=== PATIENT | female | born 1945 | race Caucasian/White ===

== ENCOUNTER 2016-11-02 12:00 | Emergency (ER) | payer MEDICARE ==
[2016-11-02 12:09] VITALS: BP 143/77; PULSE 75; TEMP 98; BMI 31.1
[2016-11-02] MEDS ORDERED: ALBUTEROL SO4 2.5/IPRATROPIUM 0.5 INH SOL 3 ML VIAL.NEB. NEB ONE ×2 (12:55→12:56)
--- NOTE | 2016-11-02 13:03 | PDOC ---
History of Present Illness - General Chief Complaint: Cold Symptoms Stated Complaint: COUGH, BACK PAIN Time Seen by Provider: 11/02/16 12:43 History Source: Patient Exam Limitations: No Limitations - History of Present Illness Initial Comments: 11/02/16 12:58 Chief complaint: 2 days with shortness of breath and wheezing and chest discomfort with coughing and left lateral rib pain when coughing History of present illness: Patient is a 71 year old xsa-moeoyhc-hunclolof diabetic, hypertension, depression and asthmatic here today with dry cough 2 days with chest tightness and wheezing. Patient reports having chest discomfort when coughing or left lateral rib pain when coughing 2 days. Patient reports having had her flu vaccine. Patient is unsure whether or not she has had fever took a couple of Aleve. She reports that she used her albuterol pump twice today without relief of chest tightness or wheezing. Patient denies ever having been admitted due to her asthma. Denies any nasal congestion or sore throat or any nausea vomiting or diarrhea. Patient denies any known sick contacts or any recent travel. Surgical history appendectomy left breast mastectomy 11/02/16 14:11 11/02/16 14:16 Timing/Duration: getting worse (over 2 days ) Severity: moderate Associated Symptoms: reports: chest pain (when coughing and left lateral rib pain when coughing ), shortness of breath, other (wheezing) Past History - Past Medical History Allergies/Adverse Reactions: Allergies Allergy/AdvReac Type Severity Reaction Status Date / Time No Known Allergies Allergy Verified 11/02/16 12:06 Home Medications: Ambulatory Orders Carvedilol [Coreg -] 25 mg PO BID 05/04/12 Sitagliptin Phos/Metformin HCl [Janumet 50-500 mg Tablet] 1 each PO BID Aspirin [ASA -] 81 mg PO DAILY 02/02/14 Lisinopril [Prinivil] 5 mg PO DAILY 02/02/14 Paroxetine HCl [Paxil] 10 mg PO DAILY 02/02/14 Ibuprofen [Advil -] 400 mg PO ONCE 07/30/15 Fluticasone/Salmeterol [Advair Hfa 115-21 Mcg Inhaler] 1 inh PO BID #1 inhaler MDD 2 11/02/16 Guaifenesin Dm [Mucinex Dm -] 1 tab PO BID PRN #10 tab.er.12h 11/02/16 Cancer: Yes (breast W/LEFT MASTECTOMY) Diabetes: Yes HTN: Yes Suicide Attempt (Hx): No - Surgical History Appendectomy: Yes Cardiac Surgery: Yes (cardiac cath) Cholecystectomy: Yes - Immunization History Immunization Up to Date: Yes - Psycho/Social/Smoking Cessation Hx Anxiety: No Suicidal Ideation: No Smoking Status: No Smoking History: Never smoked Have you smoked in the past 12 months: No Number of Cigarettes Smoked Daily: 0 Information on smoking cessation initiated: No 'Breaking Loose' booklet given: 02/02/14 Hx Alcohol Use: No Drug/Substance Use Hx: No Substance Use Type: None Hx Substance Use Treatment: No Review of Systems - Review of Systems Able to Perform ROS?: Yes Constitutional: No: Symptoms Reported HEENTM: No: Symptoms Reported Respiratory: No: Symptoms reported Cardiac (ROS): Yes: Chest Pain (when coughing for 2 days ), Chest Tightness. No : Irregular Heart Rate, Lightheadedness, Palpitations Musculoskeletal: Yes: Joint Pain (left lateral ribs intermittent). No: Joint Swelling Integumentary: No: Symptoms Reported Neurological: No: Symptoms reported *Physical Exam - Vital Signs Last Vital Signs Temp Pulse Resp BP Pulse Ox 98 F 75 18 143/77 95 11/02/16 12:03 11/02/16 12:03 11/02/16 12:03 11/02/16 12:03 11/02/16 12:03 - Physical Exam General Appearance: Yes: Appropriately Dressed HEENT: positive: Normal ENT Inspection Neck: negative: Lymphadenopathy (R), Lymphadenopathy (L) Respiratory/Chest: positive: Lungs Clear, Normal Breath Sounds, Decreased Breath Sounds (diffuse b/l ), Other (after neb normal breath sounds b/l ). negative: Respiratory Distress, Accessory Muscle Use, Labored Respiration, Rapid RR, Paradoxal Breathing, Crackles, Rales, Rhonchi, Stridor, Wheezing Cardiovascular: positive: Regular Rhythm, Regular Rate, S1, S2 Integumentary: positive: Normal Color Neurologic: positive: Alert, Normal Response, Responsive Medical Decision Making - Medical Decision Making 11/02/16 13:03 Patient is a 71 year old fej-bgrptxj-nfmxeonyv diabetic, hypertension, depression and asthmatic here today with dry cough 2 days with chest tightness and wheezing. Patient reports having chest discomfort when coughing or left lateral rib pain when coughing 2 days. Patient reports having had her flu vaccine. Patient is unsure whether or not she has had fever took a couple of Aleve. She reports that she used her albuterol pump twice today without relief of chest tightness or wheezing. Patient denies ever having been admitted due to her asthma. Denies any nasal congestion or sore throat or any nausea vomiting or diarrhea. Patient denies any known sick contacts or any recent travel. Asthma exacerbation rule out infiltrate Rule out influenza A or B Plan: Influenza A and B rapid negative DuoNeb now X-ray chest PA and lateral no infiltrate, slightly prominent hilium 11/02/16 14:11 lungs cta b/l after neb advair 115mcg/21 mcg one inhale bid use albuterol neb her at home and Ventolin pump 11/02/16 14:17 *DC/Admit/Observation/Transfer Diagnosis at time of Disposition: Asthma exacerbation - Discharge Dispostion Disposition: HOME Condition at time of disposition: Stable - Patient Instructions Additional Instructions: Follow-up with primary care provider within the next few days Return To emergency room if symptoms worsen any difficulty breathing Use albuterol pump and nebulizer as previously ordered Patient voiced understanding of discharge instructions and all questions were answered
== END 2016-11-02 14:26 | disposition home or self-care (01) ==
LOC: JERFT 12:00
PROC: 3E0F7GC Introduction of Other Therapeutic Substance into Respiratory Tract, Via Natural or Artificial Opening (ICD-10-PCS; principal; 2016-11-02)
DX: J45.901 Unspecified asthma with (acute) exacerbation (principal); I10 Essential (primary) hypertension; E11.9 Type 2 diabetes mellitus without complications; Z79.84 Long term (current) use of oral hypoglycemic drugs; F32.9 Major depressive disorder, single episode, unspecified
CPT/HCPCS: 71020-TC; 87804; 94640; 99281-25

== ENCOUNTER 2017-08-26 19:42 | Emergency (ER) | payer MEDICARE ==
[2017-08-26] MEDS ORDERED: ALBUTEROL SO4 2.5/IPRATROPIUM 0.5 INH SOL 3 ML VIAL.NEB. NEB ONE ×2 (19:48→21:01)
--- NOTE | 2017-08-26 19:48 | PDOC ---
Rapid Medical Evaluation Time Seen by Provider: 08/26/17 19:44 Medical Evaluation: Allergies Allergy/AdvReac Type Severity Reaction Status Date / Time No Known Allergies Allergy Verified 11/02/16 12:06 08/26/17 19:49 71 year old female with a history of NIDDM, HTN, depression, asthma (no hospitalizations), breast ca s/p left mastectomy 2003 who presents with 3-4 days cough productive of yellow sputum, wheezing, and headache. V/s unremarkable. Alert, no respiratory distress. Scant expiratory wheeze, + cough. RRR, S1/S2. -Influenza swab -CXR -DuoNeb -To FT for further evaluation
[2017-08-26 19:49] VITALS: BP 150/78; PULSE 79; TEMP 97.7; BMI 31.1
--- NOTE | 2017-08-26 21:22 | PDOC ---
History of Present Illness - History of Present Illness Initial Comments: 08/26/17 21:29 The patient is a 71 year old female, with a past medical history of HTN, DM, presents to the emergency department with a complaint of 3-4 days of fever, headache and cough. Patient reports. Patient does not remember her temperature, but reports her neighbor took it. She tried Advil and Ibuprofen for her headache , both of which offered only a few hours of relief. Patient points to the front of her head where the pain is the worst. Patient states she had mild chest pain from the cough, however the pain resolved after the nebulizer treatment which she received in our emergency department. She reports post tussive emesis. She reports all of her symptoms have been keeping her up at night and hasn't been able to get a good night's rest. She is drinking a lot of water and juice over the past few days. Denies abdominal pain. Denies urinary urgency, frequency, hematuria or dysuria. Denies diarrhea. Denies back pain. Denies history of cardiac surgeries. Patient received the flu shot in May of this year( approx 3 months ago). Reports to recent antibiotic use 2 months ago for a UTI. Denies sick contacts, lives at home alone. PMD: Dr. Becerra, [facility] [phone] <Michael Wood - Last Filed: 08/26/17 21:48> - General History Source: Patient <Rosana Alas - Last Filed: 08/26/17 22:08> - General Chief Complaint: Cold Symptoms Stated Complaint: CONGESTION/HEADACHE Time Seen by Provider: 08/26/17 19:44 Past History <Michael Wood - Last Filed: 08/26/17 21:48> - Past Medical History Cancer: Yes (breast W/LEFT MASTECTOMY) Diabetes: Yes HTN: Yes - Surgical History Appendectomy: Yes Cardiac Surgery: Yes (cardiac cath) Cholecystectomy: Yes - Immunization History Immunization Up to Date: Yes - Suicide/Smoking/Psychosocial Hx Smoking Status: No Smoking History: Unknown if ever smoked Have you smoked in the past 12 months: No Number of Cigarettes Smoked Daily: 0 Information on smoking cessation initiated: No 'Breaking Loose' booklet given: 02/02/14 Hx Alcohol Use: No Drug/Substance Use Hx: No Substance Use Type: None Hx Substance Use Treatment: No <Rosana Alas - Last Filed: 08/26/17 22:08> - Past Medical History Allergies/Adverse Reactions: Allergies Allergy/AdvReac Type Severity Reaction Status Date / Time No Known Allergies Allergy Verified 11/02/16 12:06 Home Medications: Ambulatory Orders Carvedilol [Coreg -] 25 mg PO BID 05/04/12 Sitagliptin Phos/Metformin HCl [Janumet 50-500 mg Tablet] 1 each PO BID Aspirin [ASA -] 81 mg PO DAILY 02/02/14 Lisinopril [Prinivil] 5 mg PO DAILY 02/02/14 Paroxetine HCl [Paxil] 10 mg PO DAILY 02/02/14 Ibuprofen [Advil -] 400 mg PO ONCE 07/30/15 Fluticasone/Salmeterol [Advair Hfa 115-21 Mcg Inhaler] 1 inh PO BID #1 inhaler MDD 2 11/02/16 Guaifenesin Dm [Mucinex Dm -] 1 tab PO BID PRN #10 tab.er.12h 11/02/16 Albuterol 0.083% Nebulizer Talisha [Ventolin 0.083% Nebulizer Soln -] 1 neb NEB Q4H PRN #25 vial 08/26/17 Azithromycin [Zithromax 250mg Tablets -] 250 mg PO UTDICT #6 tab 08/26/17 Review of Systems - Review of Systems Able to Perform ROS?: Yes Comments:: 08/26/17 21:29 CONSTITUTIONAL: Present; fever, Absent: no chills, no fatigue EYES: Absent: visual changes ENT: Absent: ear pain, no sore throat CARDIOVASCULAR: Present: Chest discomfort secondary to cough Absent: no palpitations RESPIRATORY: Present:cough Absent: no SOB GI: Present: vomiting Absent: abdominal pain, no nausea, no constipation, no diarrhea GENITOURINARY: Absent: dysuria, no frequency, no hematuria MUSKULOSKELETAL: Absent: back pain, no arthralgia, no myalgia SKIN: Absent: rash NEURO: Present: Headache <Mcihael Wood - Last Filed: 08/26/17 21:48> *Physical Exam - Vital Signs Last Vital Signs Temp Pulse Resp BP Pulse Ox 97.7 F 79 16 150/78 99 08/26/17 19:47 08/26/17 19:47 08/26/17 19:47 08/26/17 19:47 08/26/17 19:47 - Physical Exam Comments: 08/26/17 21:29 GENERAL: Well-appearing, well-nourished. No apparent distress. HEENT: Normocephalic, atraumatic. PERRL, EOM intact. CARDIOVASCULAR: Normal S1, S2. Regular rate and rhythm. PULMONARY: Bilateral Rails left greater than right at the bases ABDOMEN: Soft, non-distended, non-tender. EXTREMITIES: Normal ROM in all four extremities. No gross deformities. SKIN: Warm, dry. No rash NEUROLOGICAL: No focal neurological deficits. <Michael Wood - Last Filed: 08/26/17 21:48> - Vital Signs Last Vital Signs Temp Pulse Resp BP Pulse Ox 97.7 F 79 16 150/78 99 08/26/17 19:47 08/26/17 19:47 08/26/17 19:47 08/26/17 19:47 08/26/17 19:47 <Rosana Alas - Last Filed: 08/26/17 22:08> ED Treatment Course - Medications Given in the ED: ED Medications Discontinued Medications Generic Name Dose Route Start Last Admin Trade Name Freq PRN Reason Stop Dose Admin Albuterol/Ipratropium 1 amp 08/26/17 19:48 08/26/17 21:03 Duoneb - NEB 08/26/17 19:49 1 amp ONCE ONE Administration <Michael Wood - Last Filed: 08/26/17 21:48> - Medications Given in the ED: ED Medications Discontinued Medications Generic Name Dose Route Start Last Admin Trade Name Freq PRN Reason Stop Dose Admin Albuterol/Ipratropium 1 amp 08/26/17 19:48 08/26/17 21:03 Duoneb - NEB 08/26/17 19:49 1 amp ONCE ONE Administration <Rosana Alas - Last Filed: 08/26/17 22:08> *DC/Admit/Observation/Transfer - Attestations Scribe Attestion: 08/26/17 21:30 Documentation prepared by Michael Wood, acting as medical billing instructor for Rosana Alas NP <Michael Wood - Last Filed: 08/26/17 21:48> <Rosana Alas - Last Filed: 08/26/17 22:08> Diagnosis at time of Disposition: Bronchitis - Discharge Dispostion Disposition: HOME - Prescriptions Prescriptions: Albuterol 0.083% Nebulizer Talisha [Ventolin 0.083% Nebulizer Soln -] 1 neb NEB Q4H PRN #25 vial PRN Reason: Cough Azithromycin [Zithromax 250mg Tablets -] 250 mg PO UTDICT #6 tab - Referrals Referrals: Unique Becerra MD [Primary Care Provider] - - Patient Instructions Printed Discharge Instructions: Acute Bronchitis Additional Instructions: follow up with your doctor as soon as possible take azithromycin as prescribed. albuterol every 4 - 6 hours as needed for cough. return to the ER if symptoms worsen. - Post Discharge Activity
[2017-08-26] MEDS ORDERED: AZITHROMYCIN 500 MG TABLET PO ONE (22:05)
[2017-08-26] MEDS ORDERED: AZITHROMYCIN 500 MG TABLET ONE (22:08)
== END 2017-08-26 22:12 | disposition home or self-care (01) ==
LOC: JERFT 19:42
PROC: 3E0F7GC Introduction of Other Therapeutic Substance into Respiratory Tract, Via Natural or Artificial Opening (ICD-10-PCS; principal; 2017-08-26)
DX: J40 Bronchitis, not specified as acute or chronic (principal); I10 Essential (primary) hypertension; E11.9 Type 2 diabetes mellitus without complications; Z85.3 Personal history of malignant neoplasm of breast
CPT/HCPCS: 71020-TC; 87804; 94640; 99281-25

== ENCOUNTER 2018-06-14 15:40 | Emergency (ER) | payer MEDICARE ==
[2018-06-14 15:55] VITALS: BP 173/78; PULSE 65; TEMP 98.6; BMI 28.9
--- NOTE | 2018-06-14 16:14 | PDOC ---
History of Present Illness - General Chief Complaint: RX Refill Stated Complaint: DEPRESSION Time Seen by Provider: 06/14/18 15:55 History Source: Patient Exam Limitations: No Limitations - History of Present Illness Initial Comments: 06/14/18 16:21 72 yr female ran out of her paxil. Pt took last dose friday states woke up today feeling tearful and sad. no thoughts of SI or hurting self. Pt has apt tomorrow with her PMD. Pt has her bottle with her. Past History - Past Medical History Allergies/Adverse Reactions: Allergies Allergy/AdvReac Type Severity Reaction Status Date / Time No Known Allergies Allergy Verified 06/14/18 15:54 Home Medications: Ambulatory Orders Carvedilol [Coreg -] 25 mg PO BID 05/04/12 Sitagliptin Phos/Metformin HCl [Janumet 50-500 mg Tablet] 1 each PO BID Aspirin [ASA -] 81 mg PO DAILY 02/02/14 Lisinopril [Prinivil] 5 mg PO DAILY 02/02/14 Paroxetine HCl [Paxil] 10 mg PO DAILY 02/02/14 Fluticasone/Salmeterol [Advair Hfa 115-21 Mcg Inhaler] 1 inh PO BID #1 inhaler MDD 2 11/02/16 Albuterol 0.083% Nebulizer Talisha [Ventolin 0.083% Nebulizer Soln -] 1 neb NEB Q4H PRN #25 vial 08/26/17 Paroxetine HCl [Paxil] 20 mg PO DAILY #14 tablet 06/14/18 Cancer: Yes (breast W/LEFT MASTECTOMY) CVA: No COPD: No Diabetes: Yes (Type 2) HTN: Yes Psychiatric Problems: Yes (depression) - Surgical History Appendectomy: Yes Cardiac Surgery: Yes (cardiac cath) Cholecystectomy: Yes - Immunization History Immunization Up to Date: Yes - Suicide/Smoking/Psychosocial Hx Smoking Status: No Smoking History: Never smoked Have you smoked in the past 12 months: No Number of Cigarettes Smoked Daily: 0 Information on smoking cessation initiated: No 'Breaking Loose' booklet given: 02/02/14 Hx Alcohol Use: No Drug/Substance Use Hx: No Substance Use Type: None Hx Substance Use Treatment: No Review of Systems - Review of Systems Able to Perform ROS?: Yes Is the patient limited Slovak proficient: No Psychiatric: Yes: Depression, Frequent Crying, Mood Swings *Physical Exam - Vital Signs Last Vital Signs Temp Pulse Resp BP Pulse Ox 98.6 F 65 18 173/78 H 97 06/14/18 15:52 06/14/18 15:52 06/14/18 15:52 06/14/18 15:52 06/14/18 15:52 - Physical Exam General Appearance: Yes: Nourished, Appropriately Dressed HEENT: positive: EOMI, JOSEPHINE Integumentary: positive: Normal Color, Dry, Warm Neurologic: positive: Fully Oriented, Alert, Normal Mood/Affect, Normal Response , Motor Strength 01/10 Medical Decision Making - Medical Decision Making 06/14/18 16:22 cc: ran out of paxil will refill today 14 pills pt has apt tomorrow with her PMD pt aware to return if worse or any thoughts of suicide. 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
== END 2018-06-14 16:26 | disposition home or self-care (01) ==
LOC: JERFT 15:40
DX: F32.9 Major depressive disorder, single episode, unspecified (principal); Z76.0 Encounter for issue of repeat prescription; I25.10 Atherosclerotic heart disease of native coronary artery without angina pectoris; Z98.61 Coronary angioplasty status; I10 Essential (primary) hypertension; E11.9 Type 2 diabetes mellitus without complications; Z79.84 Long term (current) use of oral hypoglycemic drugs; Z85.3 Personal history of malignant neoplasm of breast; Z90.12 Acquired absence of left breast and nipple
CPT/HCPCS: 99281-25

== ENCOUNTER 2018-09-17 08:34 | Day surgery (SDC) | payer OTHER ==
[2018-09-17 09:28] LABS: BASO % 0.8 % (0-2.0); EOS % 2.1 % (0-4.5); HEMATOCRIT 38.6 % (32.4-45.2); HEMOGLOBIN 13.5 GM/dL (10.7-15.3); MCH 30.7 pg (25.7-33.7); MEAN CELL VOLUME 87.8 fl (80-96); MEAN PLT VOLUME 7.3 fl (7.5-11.1); NEUT % 66.1 % (42.8-82.8); PLATELET COUNT 282 K/MM3 (134-434); RDW 13.7 % (11.6-15.6); WHITE BLOOD COUNT 7.3 K/mm3 (4.0-10.0)
[2018-09-17 10:09] LABS: INR 1.1 (0.83-1.09)
[2018-09-17 15:19] VITALS: TEMP 97.8
[2018-09-17 15:23] VITALS: BP 140/84; PULSE 70
== END 2018-09-17 13:50 | disposition home or self-care (01) ==
LOC: JRADIR 08:34
PROVIDERS: ATTEND Internal Medicine Hematology & Oncology
PROC: BW20ZZZ Computerized Tomography (CT Scan) of Abdomen (ICD-10-PCS; principal; 2018-09-17)
PROC: 0WBF3ZX Excision of Abdominal Wall, Percutaneous Approach, Diagnostic (ICD-10-PCS; 2018-09-17)
DX: R19.09 Other intra-abdominal and pelvic swelling, mass and lump (principal); Z53.8 Procedure and treatment not carried out for other reasons
CPT/HCPCS: 36415; 49180; 77012-TC; 85025; 85610

== ENCOUNTER 2018-10-09 07:18 | Day surgery (SDC) | payer OTHER ==
[2018-10-08 11:29] VITALS: BMI 26.3
[2018-10-09] MEDS ORDERED: PROPOFOL 20 ML ONE (09:09)
[2018-10-09] MEDS ORDERED: MIDAZOLAM HCL 2 MG/2 ML SINGLE DOSE VIAL ONE (09:09)
[2018-10-09] MEDS ORDERED: LIDOCAINE HCL/PF 2% SDV 5ML VIAL ONE (09:09)
[2018-10-09] MEDS ORDERED: oxyCODONE HCL 5 MG TABLET PO PRN (09:26)
[2018-10-09] MEDS ORDERED: ONDANSETRON 4 MG/2 ML VIAL IVPUSH PRN (09:26)
[2018-10-09] MEDS ORDERED: ACETAMINOPHEN 500 MG TABLET (FP) PO PRN (09:26)
[2018-10-09] MEDS ORDERED: LACTATED RINGERS SOLUTION 1,000 ML IV SCH (09:30)
[2018-10-09] MEDS ORDERED: LIDOCAINE 1%-EPI 1:100,000 30 ML MDV IJ ONE (09:33)
--- NOTE | 2018-10-09 09:36 | HP ---
History & Physical Update - History History: No Change - Physical Physical: No Change - Assessment Assessment: No Change - Plan Plan: No Change (H & P done on 10/01/18)
[2018-10-09] MEDS ORDERED: ceFAZolin SODIUM 1 GM VIAL ONE (09:44)
[2018-10-09] MEDS ORDERED: ceFAZolin SODIUM 1 GM VIAL IVPB ONE (09:46)
[2018-10-09 11:34] VITALS: TEMP 97.8
--- NOTE | 2018-10-09 11:40 | OP ---
DATE OF OPERATION: 10/09/2018 PROCEDURE: Incisional biopsy abdominal wall mass. PREOPERATIVE DIAGNOSIS: Abdominal wall mass. POSTOPERATIVE DIAGNOSIS: Abdominal wall mass, rule out firm body granuloma. ANESTHESIA: Local with sedation. REASON FOR PROCEDURE: This is a 73-year-old female who presents with a slightly painful and tender abdominal wall mass at the upper abdomen to the left of the midline for which incisional hernia repair was done several years prior. On physical exam, the patient has an ill-defined, irregularly shaped mass of the said area about 3 cm x [address] A [address] scan of the abdomen showed a 2.6-cm x 1.7-cm mass incorporated with the mesh. An attempt for CT-guided core needle biopsy proved to be unsuccessful as the mass was fibrotic and was hard causing the needle to break. The patient was referred for open biopsy, and consent was obtained after discussing the risks, benefits, and alternatives of the procedure. PROCEDURE IN DETAIL: The patient was brought to the operating room and placed in supine position. Intravenous sedation was given by the Anesthesia team. Using lidocaine 1% with epinephrine, local anesthesia was administered to both incision sites. A 2.5-cm vertical incision over the mass was made using scalpel blade No. 15 with dissection carried down to subcutaneous tissue. During dissection using Bovie cautery was done until the abdominal wall was exposed. The ill-defined mass was noted to be embedded in the fascia and surrounded by the mesh. An aggregate size of about 2-cm x 1-cm x 1.5-cm specimen was excised using the scalpel blade No. 15 combined with the use of Hinkle scissors. Some cheesy material was also encountered under the mass as well as Prolene suture from the previous hernia repair procedure. These sutures were also removed. The area was irrigated with sterile normal saline until return was clear. A smaller piece of the tail of the mass was also excised. Afterwards, the edges of the wound were opposed with [id number] Vicryl 0 suture. The wound was closed with interrupted Biosyn 4-0 suture for the dermis and continuous Biosyn 4-0 suture for the subcuticular layer. The wound closure was reinforced with Steri-Strips and covered with pressure dressing. The patient was transferred to the post anesthesia care unit in satisfactory condition. Estimated blood loss was about 1 mL. Wound class clean. The patient received a gram of Ancef prior to the start of the procedure. Ami [id number] MTDD
--- NOTE | 2018-10-09 12:06 | OP ---
Operative Note - Note: Operative Date: 10/09/18 Pre-Operative Diagnosis: abdominal wall mass Operation: Incisional biopsy, abdominal wall mass Findings: irregular mass embedded in mesh and rectus muscle, suture granuloma encountered Post-Operative Diagnosis: Same as Pre-op Surgeon: Andrea August Anesthesia: Local, MAC Specimens Removed: abdominal wall mass Estimated Blood Loss (mls): 1 Operative Report Dictated: Yes
[2018-10-09 13:34] VITALS: BP 116/72; PULSE 62
--- NOTE | 2018-10-12 16:00 | PATH ---
Surgical Pathology Report Patient Name: VIRGILIO BAER [facility]. Rec. #: [id number] /Age/Gender: 1945 (Age: 73) / F Account: [id number] Location: [facility] SUR[facility]ICAL Taken: 10/09/2018 Received: 10/09/2018 Reported: 10/12/2018 Physicians: Andrea August M.D. Specimen(s) Received ABDOMINAL WALL MASS Clinical History Abdominal wall mass Final Diagnosis ABDOMINAL WALL MASS, EXCISION: FIBROTIC TISSUE AND AMORPHOUS DEBRIS WITH FOREIGN BODY MULTINUCLEATED GIANT CELL REACTION. Electronically Signed Emma Vazquez M.D. Gross Description Received in formalin labeled "abdominal wall mass," is a 2.2 x 1.5 x 1.0 cm pink treadwell, fragmented portion tissue, possibly consistent with a cyst and cyst contents. Caddie Supervisor sections are submitted in one cassette. /10/09/201810/09/2018
== END 2018-10-09 13:15 | disposition home or self-care (01) ==
LOC: JASU-SURG 07:18
PROVIDERS: ATTEND Surgery
PROC: 0JB80ZZ Excision of Abdomen Subcutaneous Tissue and Fascia, Open Approach (ICD-10-PCS; principal; 2018-10-09 09:00)
DX: R19.09 Other intra-abdominal and pelvic swelling, mass and lump (principal)
CPT/HCPCS: 82962; 87070; 87075; 87205; 88304-TC; 94760

== ENCOUNTER 2022-12-24 14:38 | Observation (INO) | payer OTHER ==
[2022-12-24] MEDS ORDERED: MECLIZINE HCL 25 MG TABLET (FP) PO ONE (15:22)
[2022-12-24] MEDS ORDERED: MECLIZINE HCL 25 MG TABLET (FP) ONE (15:25)
[2022-12-24 16:57] LABS: BASO % 0.8 % (0-2.0); EOS % 1.8 % (0-4.5); HEMATOCRIT 37.4 % (32.4-45.2); HEMOGLOBIN 12.6 GM/dL (10.7-15.3); LYMPH % 19.5 % (8-40); MCH 27.1 pg (25.7-33.7); MCHC 33.6 g/dl (32.0-36.0); MEAN CELL VOLUME 80.7 fl (80-96); MEAN PLT VOLUME 6.8 fl (7.5-11.1); MONO % 10.6 % (3.8-10.2); NEUT % 67.3 % (42.8-82.8); PLATELET COUNT 292 10^3/uL (134-434); RBC 4.64 M/mm3 (3.60-5.2); RDW 15.6 % (11.6-15.6); WHITE BLOOD COUNT 7.3 K/mm3 (4.0-10.0)
[2022-12-24 17:10] LABS: ALBUMIN 3.7 g/dl (3.4-5.0); BLOOD UREA NITROGEN 17.3 mg/dL (7-18); CALCIUM 9.3 mg/dL (8.5-10.1)
[2022-12-24 17:12] LABS: CREATININE 0.8 mg/dL (0.55-1.3)
[2022-12-24 17:14] LABS: BILIRUBIN,TOTAL 0.6 mg/dL (0.2-1); TOT PROT 7.6 g/dl (6.4-8.2)
[2022-12-24] MEDS ORDERED: MECLIZINE HCL 12.5 MG TABLET PO PRN (17:48)
[2022-12-24] MEDS: CARVEDILOL 25 MG TABLET (FP) PO SCH (23:33)
[2022-12-24] MEDS: HEPARIN NA (PORCINE) 5,000 UNITS/ML 1ML VIAL SQ SCH (23:33)
[2022-12-24] MEDS: ATORVASTATIN CA 20 MG TABLET (FP) PO SCH (23:33)
[2022-12-25 00:39] VITALS: RESP 20; BMI 27.1
[2022-12-25] MEDS ORDERED: ALBUTEROL SO4 HFA INHALER IH PRN (01:19)
[2022-12-25] MEDS: ACETAMINOPHEN 1000 MG/100 ML BAG IVPB PRN ×2 (06:56→19:38)
[2022-12-25] MEDS: LISINOPRIL 5 MG TABLET PO SCH (09:54)
[2022-12-25] MEDS: ASPIRIN COATED 81 MG TABLET.EC PO SCH (09:55)
[2022-12-25] MEDS: CARVEDILOL 25 MG TABLET (FP) PO SCH ×2 (09:55→21:50)
[2022-12-25] MEDS: PARoxetine HCL 20 MG TABLET PO SCH (09:55)
[2022-12-25] MEDS: HEPARIN NA (PORCINE) 5,000 UNITS/ML 1ML VIAL SQ SCH ×2 (09:55→21:50)
[2022-12-25] MEDS: ATORVASTATIN CA 20 MG TABLET (FP) PO SCH (21:50)
[2022-12-25] MEDS ORDERED: ACETAMINOPHEN 325 MG TABLET (FP) PO PRN (23:35)
[2022-12-26] MEDS: ASPIRIN COATED 81 MG TABLET.EC PO SCH (10:22)
[2022-12-26] MEDS: LISINOPRIL 5 MG TABLET PO SCH (10:22)
[2022-12-26] MEDS: HEPARIN NA (PORCINE) 5,000 UNITS/ML 1ML VIAL SQ SCH (10:22)
[2022-12-26] MEDS: CARVEDILOL 25 MG TABLET (FP) PO SCH (10:22)
[2022-12-26] MEDS: PARoxetine HCL 20 MG TABLET PO SCH (11:33)
[2022-12-26 15:39] VITALS: BP 125/85; PULSE 78; TEMP 99.4
== END 2022-12-26 18:20 | disposition home or self-care (01) ==
LOC: JER 14:38 → JERBED 20:08 → J8W 21:59
PROVIDERS: ADMIT Internal Medicine; ATTEND Family Medicine
PROC: 3E033NZ Introduction of Analgesics, Hypnotics, Sedatives into Peripheral Vein, Percutaneous Approach (ICD-10-PCS; principal; 2022-12-24)
PROC: 3E013GC Introduction of Other Therapeutic Substance into Subcutaneous Tissue, Percutaneous Approach (ICD-10-PCS; 2022-12-24)
DX: H81.10 Benign paroxysmal vertigo, unspecified ear (principal); I10 Essential (primary) hypertension; E11.9 Type 2 diabetes mellitus without complications; I25.10 Atherosclerotic heart disease of native coronary artery without angina pectoris; J45.909 Unspecified asthma, uncomplicated; M25.551 Pain in right hip; F41.9 Anxiety disorder, unspecified; F32.9 Major depressive disorder, single episode, unspecified
CPT/HCPCS: 36415; 70450-TC; 72170-TC-FY; 73502-TC-RT-FY; 80053; 85025; 93005; 93010; 96372; 96374; 97116-GP; 97161-GP; 99285-25; C9803-CS; G0378; J1644; U0003; U0005

== ENCOUNTER 2023-03-05 12:32 | Inpatient (IN) | payer OTHER ==
[2023-03-05] MEDS ORDERED: VANCOMYCIN 1 GM in D5W (PRE-DOCKED) 1,000 MG/250 ML (RESTRICTED TO ID ONLY IVPB ONE (13:57)
[2023-03-05] MEDS ORDERED: ACETAMINOPHEN 1000 MG/100 ML BAG IVPB ONE (14:02)
[2023-03-05] MEDS ORDERED: VANCOMYCIN/WATER FOR INJ (PEG) 1,000 MG/200 ML BAG IVPB ONE (14:19)
[2023-03-05] MEDS ORDERED: ACETAMINOPHEN INJECTION 100 ML IVPB ONE (14:19)
[2023-03-05 14:35] LABS: BASO % 0.6 % (0-2.0); EOS % 1.2 % (0-4.5); HEMATOCRIT 38.9 % (32.4-45.2); HEMOGLOBIN 12.4 GM/dL (10.7-15.3); LYMPH % 9.4 % (8-40); MCH 26.8 pg (25.7-33.7); MCHC 31.9 g/dl (32.0-36.0); MEAN CELL VOLUME 83.9 fl (80-96); MEAN PLT VOLUME 6.8 fl (7.5-11.1); MONO % 12.4 % (3.8-10.2); NEUT % 76.4 % (42.8-82.8); PLATELET COUNT 395 10^3/uL (134-434); RBC 4.63 M/mm3 (3.60-5.2); RDW 16.3 % (11.6-15.6); WHITE BLOOD COUNT 10.4 K/mm3 (4.0-10.0)
[2023-03-05 14:47] LABS: ACTIVATED PTT 35.8 SECONDS (25.2-36.5); INR 1.25 (0.83-1.09); PROTHROMBIN TIME (PATIENT) 14.5 SEC (9.7-13.0)
[2023-03-05 14:57] LABS: POTASSIUM 4.6 mmol/L (3.5-5.1)
[2023-03-05 15:00] LABS: ALBUMIN 2.8 g/dl (3.4-5.0); BLOOD UREA NITROGEN 17.2 mg/dL (7-18); CALCIUM 9.3 mg/dL (8.5-10.1)
[2023-03-05 15:03] LABS: CREATININE 0.9 mg/dL (0.55-1.3)
[2023-03-05 15:04] LABS: TOT PROT 7.2 g/dl (6.4-8.2)
[2023-03-05 15:05] LABS: BILIRUBIN,TOTAL 0.7 mg/dL (0.2-1)
[2023-03-05 15:08] LABS: EPI CELLS 10 /uL (0-25.1); HYALINE CASTS 0 /uL (0-3.1); PH,URINE 5.5 (5.0-8.0); URINE APPEARANCE CLEAR; URINE BACTERIA >9,000 /uL (0-1359); URINE BILIRUBIN NEGATIVE (NEGATIVE); URINE COLOR YELLOW; URINE GLUCOSE (UA) 3+ (NEGATIVE); URINE KETONE NEGATIVE (NEGATIVE); URINE LEUK ESTERASE 1+ (NEGATIVE); URINE NITRITE POSITIVE (NEGATIVE); URINE PROTEIN NEGATIVE (NEGATIVE); URINE RBC 7 /uL (0-23.9); URINE UROBILINOGEN 0.2 mg/dL (0.2-1.0); URINE WBC 243 /uL (0-25.8)
[2023-03-05 15:12] LABS: VENOUS BASE EXCESS 1.6 mmol/L (-2-2); VENOUS O2 SATURATION 78.2 % (70-80); VENOUS PCO2 41.3 mmHg (38-52); VENOUS PH 7.421 (7.310-7.410)
[2023-03-05] MEDS ORDERED: CEFTRIAXONE 1,000 MG in DEXTROSE 5%-WATER - 50 ML IVPB ONE (15:14)
[2023-03-05] MEDS ORDERED: CEFTRIAXONE 1 GM/50 ML BAG ONE (15:30)
[2023-03-05] MEDS ORDERED: MECLIZINE HCL 12.5 MG TABLET PO PRN (17:49)
[2023-03-05] MEDS: GABAPENTIN 300 MG CAPSULE PO SCH (21:36)
[2023-03-05] MEDS: HEPARIN NA (PORCINE) 5,000 UNITS/ML 1ML VIAL SQ SCH (21:36)
[2023-03-05] MEDS: SACUBITRIL/VALSARTAN 24 MG-26 MG TABLET PO SCH (21:36)
[2023-03-05] MEDS: ACETAMINOPHEN 500 MG TABLET (FP) PO PRN (21:39)
[2023-03-05] MEDS ORDERED: ATORVASTATIN CA 80 MG TABLET (FP) PO SCH (22:00)
[2023-03-05] MEDS: TICAGRELOR 90 MG TABLET PO SCH (22:34)
[2023-03-05 22:49] VITALS: BMI 26.2
[2023-03-06] MEDS: GABAPENTIN 300 MG CAPSULE PO SCH ×3 (06:29→22:50)
[2023-03-06] MEDS: INSULIN SLIDING SCALE (NOVOLOG) 1 VIAL SQ SCH ×3 (06:30→16:42)
[2023-03-06 08:01] LABS: BASO % 0.4 % (0-2.0); EOS % 0.4 % (0-4.5); HEMATOCRIT 40.8 % (32.4-45.2); HEMOGLOBIN 13.1 GM/dL (10.7-15.3); LYMPH % 5.3 % (8-40); MCH 26.7 pg (25.7-33.7); MCHC 32.1 g/dl (32.0-36.0); MEAN CELL VOLUME 83.3 fl (80-96); MONO % 8.2 % (3.8-10.2); NEUT % 85.7 % (42.8-82.8); PLATELET COUNT 466 10^3/uL (134-434); RDW 16.4 % (11.6-15.6); WHITE BLOOD COUNT 14.3 K/mm3 (4.0-10.0)
[2023-03-06 08:12] LABS: POTASSIUM 4.2 mmol/L (3.5-5.1)
[2023-03-06] MEDS: ACETAMINOPHEN 500 MG TABLET (FP) PO PRN ×2 (08:29→22:47)
[2023-03-06 08:35] LABS: BLOOD UREA NITROGEN 18.3 mg/dL (7-18); CALCIUM 9.8 mg/dL (8.5-10.1); CREATININE 0.8 mg/dL (0.55-1.3)
[2023-03-06] MEDS ORDERED: PARoxetine HCL 20 MG TABLET PO SCH (10:00)
[2023-03-06] MEDS ORDERED: VANCOMYCIN 1 GM in D5W (PRE-DOCKED) 1,000 MG/250 ML (RESTRICTED TO ID ONLY IVPB SCH (10:00)
[2023-03-06] MEDS ORDERED: FUROSEMIDE 20 MG TABLET (FP) PO SCH (10:00)
[2023-03-06] MEDS ORDERED: EPLERENONE 25 MG TABLET PO SCH (10:00)
[2023-03-06] MEDS ORDERED: ASPIRIN COATED 81 MG TABLET.EC PO SCH (10:00)
[2023-03-06] MEDS ORDERED: ENOXAPARIN NA (PORCINE) 60 MG/0.6 ML DISP.SYRIN SQ ONE ×2 (10:00→20:00)
[2023-03-06] MEDS ORDERED: CEFTRIAXONE 1 GM in DEXTROSE 5%-WATER - 50 ML IVPB SCH (10:00)
[2023-03-06] MEDS: HEPARIN NA (PORCINE) 5,000 UNITS/ML 1ML VIAL SQ SCH (10:42)
[2023-03-06] MEDS: SACUBITRIL/VALSARTAN 24 MG-26 MG TABLET PO SCH ×2 (10:42→22:49)
[2023-03-06] MEDS: TICAGRELOR 90 MG TABLET PO SCH ×2 (10:43→22:49)
[2023-03-06] MEDS ORDERED: PIPERACILLIN/TAZOB 3.375 GM 3.375 GM in DEXTROSE 5%-WATER - 50 ML IVPB SCH (14:00)
[2023-03-06] MEDS: VANCOMYCIN/WATER FOR INJ (PEG) 1,000 MG/200 ML BAG IVPB SCH ×2 (14:05→15:34)
[2023-03-06] MEDS ORDERED: MECLIZINE HCL 12.5 MG TABLET PO PRN (15:35)
[2023-03-06] MEDS ORDERED: SILVER SULFADIAZINE 1% TOP CREAM 50 GM JAR TP SCH (15:45)
[2023-03-06] MEDS ORDERED: COLCHICINE 0.6 MG TAB PO ONE (16:20)
[2023-03-06] MEDS ORDERED: HEPARIN NA (PORCINE) 5,000 UNITS/ML 1ML VIAL SQ SCH (22:00)
[2023-03-06] MEDS ORDERED: ENOXAPARIN NA (PORCINE) 60 MG/0.6 ML DISP.SYRIN SQ SCH (22:00)
[2023-03-06] MEDS: ATORVASTATIN CA 80 MG TABLET (FP) PO SCH (22:51)
[2023-03-06] MEDS: PANTOPRAZOLE 40 MG TABLET PO SCH (22:51)
[2023-03-07] MEDS: VANCOMYCIN/WATER FOR INJ (PEG) 1,000 MG/200 ML BAG IVPB SCH ×2 (01:54→13:48)
[2023-03-07] MEDS: GABAPENTIN 300 MG CAPSULE PO SCH ×3 (05:31→21:20)
[2023-03-07] MEDS: ACETAMINOPHEN 500 MG TABLET (FP) PO PRN ×2 (05:31→12:03)
[2023-03-07] MEDS: INSULIN SLIDING SCALE (NOVOLOG) 1 VIAL SQ SCH ×3 (08:00→16:57)
[2023-03-07] MEDS ORDERED: oxyCODONE HCL 5 MG TABLET PO PRN (08:03)
[2023-03-07] MEDS ORDERED: ENOXAPARIN NA (PORCINE) 60 MG/0.6 ML DISP.SYRIN SQ ONE (10:00)
[2023-03-07] MEDS: CEFTRIAXONE 1 GM in DEXTROSE 5%-WATER - 50 ML IVPB SCH (12:04)
[2023-03-07] MEDS: PANTOPRAZOLE 40 MG TABLET PO SCH (12:05)
[2023-03-07] MEDS: ASPIRIN COATED 81 MG TABLET.EC PO SCH (13:48)
[2023-03-07] MEDS: SACUBITRIL/VALSARTAN 24 MG-26 MG TABLET PO SCH ×2 (13:49→21:20)
[2023-03-07] MEDS: TICAGRELOR 90 MG TABLET PO SCH ×2 (13:49→21:20)
[2023-03-07] MEDS: PARoxetine HCL 20 MG TABLET PO SCH (13:49)
[2023-03-07] MEDS: FUROSEMIDE 20 MG TABLET (FP) PO SCH (13:50)
[2023-03-07] MEDS: EPLERENONE 25 MG TABLET PO SCH (13:50)
[2023-03-07] MEDS: SILVER SULFADIAZINE 1% TOP CREAM 50 GM JAR TP SCH (13:51)
[2023-03-07] MEDS ORDERED: ACETAMINOPHEN 325 MG TABLET (FP) PO PRN (16:55)
[2023-03-07] MEDS: oxyCODONE HCL 5 MG TABLET PO PRN ×2 (17:02→21:20)
[2023-03-07] MEDS: GENTAMICIN SO4 0.1% TOPICAL OINTMENT 15 GM/TUBE TUBE TP SCH ×2 (18:39→21:29)
[2023-03-07] MEDS: ATORVASTATIN CA 80 MG TABLET (FP) PO SCH (21:20)
[2023-03-07] MEDS ORDERED: ENOXAPARIN NA (PORCINE) 60 MG/0.6 ML DISP.SYRIN SQ SCH (22:00)
[2023-03-08] MEDS: VANCOMYCIN/WATER FOR INJ (PEG) 1,000 MG/200 ML BAG IVPB SCH ×2 (01:36→13:26)
[2023-03-08] MEDS: INSULIN SLIDING SCALE (NOVOLOG) 1 VIAL SQ SCH ×3 (06:26→16:41)
[2023-03-08] MEDS: GABAPENTIN 300 MG CAPSULE PO SCH ×3 (06:26→22:25)
[2023-03-08 07:32] LABS: BASO % 0.3 % (0-2.0); EOS % 0.7 % (0-4.5); HEMATOCRIT 34.8 % (32.4-45.2); HEMOGLOBIN 11.2 GM/dL (10.7-15.3); LYMPH % 4.2 % (8-40); MCH 26.5 pg (25.7-33.7); MCHC 32.2 g/dl (32.0-36.0); MEAN CELL VOLUME 82.3 fl (80-96); MEAN PLT VOLUME 6.7 fl (7.5-11.1); MONO % 10.5 % (3.8-10.2); NEUT % 84.3 % (42.8-82.8); PLATELET COUNT 480 10^3/uL (134-434); RBC 4.23 M/mm3 (3.60-5.2); RDW 16.5 % (11.6-15.6); WHITE BLOOD COUNT 17.2 K/mm3 (4.0-10.0)
[2023-03-08 07:50] LABS: POTASSIUM 3.6 mmol/L (3.5-5.1)
[2023-03-08 07:53] LABS: BLOOD UREA NITROGEN 20.2 mg/dL (7-18)
[2023-03-08 07:54] LABS: CALCIUM 8.7 mg/dL (8.5-10.1); MAGNESIUM 1.9 mg/dL (1.8-2.4)
[2023-03-08 08:02] LABS: CREATININE 1.2 mg/dL (0.55-1.3); PHOSPHOROUS 4.1 mg/dL (2.5-4.9)
[2023-03-08] MEDS: PARoxetine HCL 20 MG TABLET PO SCH (09:14)
[2023-03-08] MEDS: TICAGRELOR 90 MG TABLET PO SCH ×2 (09:14→22:25)
[2023-03-08] MEDS: PANTOPRAZOLE 40 MG TABLET PO SCH (09:14)
[2023-03-08] MEDS: ASPIRIN COATED 81 MG TABLET.EC PO SCH (09:15)
[2023-03-08] MEDS: CEFTRIAXONE 1 GM in DEXTROSE 5%-WATER - 50 ML IVPB SCH (09:15)
[2023-03-08] MEDS: GENTAMICIN SO4 0.1% TOPICAL OINTMENT 15 GM/TUBE TUBE TP SCH ×2 (09:16→22:27)
[2023-03-08] MEDS: SILVER SULFADIAZINE 1% TOP CREAM 50 GM JAR TP SCH (09:18)
[2023-03-08] MEDS: EPLERENONE 25 MG TABLET PO SCH ×2 (10:59→12:01)
[2023-03-08] MEDS: SACUBITRIL/VALSARTAN 24 MG-26 MG TABLET PO SCH ×2 (10:59→22:24)
[2023-03-08] MEDS: FUROSEMIDE 20 MG TABLET (FP) PO SCH ×2 (10:59→12:01)
[2023-03-08] MEDS ORDERED: INSULIN (NOVOLOG) ASPART 100 UNITS/ML 10ML VIAL ONE (11:15)
[2023-03-08] MEDS: SODIUM CHLORIDE 1,000 ML IV SCH (16:41)
[2023-03-08] MEDS: COLCHICINE 0.6 MG TAB PO SCH (16:41)
[2023-03-08] MEDS: oxyCODONE HCL 5 MG TABLET PO PRN (22:24)
[2023-03-08] MEDS: ATORVASTATIN CA 80 MG TABLET (FP) PO SCH (22:25)
[2023-03-09] MEDS: VANCOMYCIN/WATER FOR INJ (PEG) 1,000 MG/200 ML BAG IVPB SCH (01:08)
[2023-03-09] MEDS: INSULIN SLIDING SCALE (NOVOLOG) 1 VIAL SQ SCH ×3 (06:33→17:19)
[2023-03-09] MEDS: GABAPENTIN 300 MG CAPSULE PO SCH ×2 (06:46→13:38)
[2023-03-09 09:38] LABS: POTASSIUM 3.6 mmol/L (3.5-5.1)
[2023-03-09 09:42] LABS: CALCIUM 8.5 mg/dL (8.5-10.1)
[2023-03-09 09:43] LABS: MAGNESIUM 2.1 mg/dL (1.8-2.4)
[2023-03-09 09:46] LABS: CREATININE 2.4 mg/dL (0.55-1.3); PHOSPHOROUS 4.8 mg/dL (2.5-4.9)
[2023-03-09 09:48] LABS: BILIRUBIN,TOTAL 0.7 mg/dL (0.2-1); TOT PROT 6.1 g/dl (6.4-8.2)
[2023-03-09 09:51] LABS: ALBUMIN 2.2 g/dl (3.4-5.0)
[2023-03-09] MEDS: oxyCODONE HCL 5 MG TABLET PO PRN (10:29)
[2023-03-09] MEDS: FUROSEMIDE 20 MG TABLET (FP) PO SCH (10:31)
[2023-03-09] MEDS: COLCHICINE 0.6 MG TAB PO SCH (10:31)
[2023-03-09] MEDS: PARoxetine HCL 20 MG TABLET PO SCH (10:31)
[2023-03-09] MEDS: TICAGRELOR 90 MG TABLET PO SCH ×4 (10:31→22:28)
[2023-03-09] MEDS: ASCORBIC ACID 250 MG TABLET (FP) PO SCH (10:31)
[2023-03-09] MEDS: MULTIVITAMINS (DAILY MVI) TABLET (FP) PO SCH (10:32)
[2023-03-09] MEDS: ASPIRIN COATED 81 MG TABLET.EC PO SCH (10:32)
[2023-03-09] MEDS: SACUBITRIL/VALSARTAN 24 MG-26 MG TABLET PO SCH (10:32)
[2023-03-09] MEDS: PANTOPRAZOLE 40 MG TABLET PO SCH (10:32)
[2023-03-09] MEDS: SILVER SULFADIAZINE 1% TOP CREAM 50 GM JAR TP SCH (10:33)
[2023-03-09] MEDS: GENTAMICIN SO4 0.1% TOPICAL OINTMENT 15 GM/TUBE TUBE TP SCH ×2 (10:33→21:55)
[2023-03-09] MEDS: EPLERENONE 25 MG TABLET PO SCH (10:33)
[2023-03-09 11:18] LABS: BASO % 0.2 % (0-2.0); EOS % 1.5 % (0-4.5); HEMATOCRIT 35.5 % (32.4-45.2); HEMOGLOBIN 11.3 GM/dL (10.7-15.3); LYMPH % 4.2 % (8-40); MCH 25.9 pg (25.7-33.7); MCHC 31.9 g/dl (32.0-36.0); MEAN CELL VOLUME 81.2 fl (80-96); MEAN PLT VOLUME 6.4 fl (7.5-11.1); MONO % 9.6 % (3.8-10.2); NEUT % 84.5 % (42.8-82.8); PLATELET COUNT 392 10^3/uL (134-434); RBC 4.37 M/mm3 (3.60-5.2); WHITE BLOOD COUNT 15.8 K/mm3 (4.0-10.0)
[2023-03-09] MEDS: POVIDONE-IODINE 10% SOLN 118 ML BOTTLE TP SCH (11:44)
[2023-03-09] MEDS ORDERED: PIPERACILLIN/TAZOB 3.375 GM 3.375 GM in DEXTROSE 5%-WATER - 50 ML IVPB SCH (16:31)
[2023-03-09] MEDS ORDERED: oxyCODONE HCL 5 MG TABLET PO PRN (16:52)
[2023-03-09] MEDS ORDERED: SODIUM CHLORIDE 1,000 ML IV SCH ×2 (17:00→19:22)
[2023-03-09] MEDS: CEFTRIAXONE 1 GM in DEXTROSE 5%-WATER - 50 ML IVPB SCH (18:03)
[2023-03-09] MEDS: SODIUM CHLORIDE 1,000 ML IV SCH (18:04)
[2023-03-09] MEDS ORDERED: GABAPENTIN 100 MG CAPSULE PO SCH (18:52)
[2023-03-09 19:00] LABS: ARTERIAL BLD GAS O2 SATURATION 36.4 % (95-98); ARTERIAL BLOOD GAS BASE EXCESS -3.3 mmol/L (-2-2); ARTERIAL BLOOD GAS pH 7.306 (7.350-7.450)
[2023-03-09 19:02] LABS: ALLENS TEST POSITIVE
[2023-03-09 19:06] LABS: ARTERIAL BLOOD GAS PO2 23.7 mmHg (80-100)
[2023-03-09] MEDS ORDERED: NALOXONE HCL 0.4 MG/ML VIAL ONE (19:14)
[2023-03-09] MEDS: ATORVASTATIN CA 80 MG TABLET (FP) PO SCH ×2 (21:51→22:01)
[2023-03-10] MEDS ORDERED: PIPERACILLIN/TAZOB 2.25 GM 2.25 GM in DEXTROSE 5%-WATER - 50 ML IVPB SCH (01:00)
[2023-03-10 03:08] LABS: EPI CELLS 23 /uL (0-25.1); HYALINE CASTS 7 /uL (0-3.1); URINE APPEARANCE CLOUDY; URINE BACTERIA 25 /uL (0-1359); URINE BILIRUBIN NEGATIVE (NEGATIVE); URINE COLOR YELLOW; URINE GLUCOSE (UA) 2+ (NEGATIVE); URINE KETONE NEGATIVE (NEGATIVE); URINE LEUK ESTERASE 2+ (NEGATIVE); URINE NITRITE NEGATIVE (NEGATIVE); URINE PROTEIN TRACE (NEGATIVE); URINE UROBILINOGEN 0.2 mg/dL (0.2-1.0); URINE WBC 289 /uL (0-25.8)
[2023-03-10] MEDS: INSULIN SLIDING SCALE (NOVOLOG) 1 VIAL SQ SCH ×3 (06:19→16:36)
[2023-03-10 06:51] LABS: URINE RBC 43.9 /uL (0-23.9)
[2023-03-10 07:09] LABS: BASO % 0.4 % (0-2.0); EOS % 1.8 % (0-4.5); HEMATOCRIT 32.1 % (32.4-45.2); HEMOGLOBIN 10.3 GM/dL (10.7-15.3); LYMPH % 5.2 % (8-40); MCH 26.6 pg (25.7-33.7); MCHC 32.2 g/dl (32.0-36.0); MEAN CELL VOLUME 82.7 fl (80-96); MEAN PLT VOLUME 6.7 fl (7.5-11.1); MONO % 10.1 % (3.8-10.2); NEUT % 82.5 % (42.8-82.8); PLATELET COUNT 362 10^3/uL (134-434); RBC 3.89 M/mm3 (3.60-5.2); WHITE BLOOD COUNT 13.9 K/mm3 (4.0-10.0)
[2023-03-10 07:39] LABS: POTASSIUM 3.4 mmol/L (3.5-5.1)
[2023-03-10 07:52] LABS: BLOOD UREA NITROGEN 45.2 mg/dL (7-18)
[2023-03-10 07:54] LABS: CALCIUM 8.6 mg/dL (8.5-10.1); MAGNESIUM 2.1 mg/dL (1.8-2.4); PHOSPHOROUS 5.4 mg/dL (2.5-4.9)
[2023-03-10 07:55] LABS: ALBUMIN 2.1 g/dl (3.4-5.0); CREATININE 3.4 mg/dL (0.55-1.3)
[2023-03-10 07:56] LABS: BILIRUBIN,TOTAL 0.6 mg/dL (0.2-1)
[2023-03-10] MEDS ORDERED: SODIUM CHLORIDE 1,000 ML IV SCH (08:30)
[2023-03-10] MEDS: CEFTRIAXONE 1 GM in DEXTROSE 5%-WATER - 50 ML IVPB SCH (10:11)
[2023-03-10] MEDS: TICAGRELOR 90 MG TABLET PO SCH ×2 (10:51→21:39)
[2023-03-10] MEDS: MULTIVITAMINS (DAILY MVI) TABLET (FP) PO SCH (10:51)
[2023-03-10] MEDS: PANTOPRAZOLE 40 MG TABLET PO SCH (10:51)
[2023-03-10] MEDS: ASPIRIN COATED 81 MG TABLET.EC PO SCH (10:51)
[2023-03-10] MEDS: ASCORBIC ACID 250 MG TABLET (FP) PO SCH (10:52)
[2023-03-10] MEDS: EPLERENONE 25 MG TABLET PO SCH (10:52)
[2023-03-10] MEDS: PARoxetine HCL 20 MG TABLET PO SCH (10:52)
[2023-03-10] MEDS: GENTAMICIN SO4 0.1% TOPICAL OINTMENT 15 GM/TUBE TUBE TP SCH ×2 (10:54→21:43)
[2023-03-10] MEDS: SILVER SULFADIAZINE 1% TOP CREAM 50 GM JAR TP SCH (10:54)
[2023-03-10] MEDS: POVIDONE-IODINE 10% SOLN 118 ML BOTTLE TP SCH (10:55)
[2023-03-10] MEDS ORDERED: POTASSIUM CHLORIDE ORAL LIQUID 20 MEQ/15 ML PO ONE (15:33)
[2023-03-10] MEDS: ATORVASTATIN CA 80 MG TABLET (FP) PO SCH (21:39)
[2023-03-11] MEDS: INSULIN SLIDING SCALE (NOVOLOG) 1 VIAL SQ SCH ×3 (06:20→16:08)
[2023-03-11 07:59] LABS: BASO % 0.2 % (0-2.0); EOS % 1.7 % (0-4.5); HEMATOCRIT 30.2 % (32.4-45.2); HEMOGLOBIN 9.7 GM/dL (10.7-15.3); LYMPH % 3.2 % (8-40); MCH 26.6 pg (25.7-33.7); MCHC 32.3 g/dl (32.0-36.0); MEAN CELL VOLUME 82.4 fl (80-96); MEAN PLT VOLUME 6.7 fl (7.5-11.1); MONO % 9.3 % (3.8-10.2); NEUT % 85.6 % (42.8-82.8); PLATELET COUNT 343 10^3/uL (134-434); RBC 3.67 M/mm3 (3.60-5.2); RDW 17.3 % (11.6-15.6); WHITE BLOOD COUNT 13.4 K/mm3 (4.0-10.0)
[2023-03-11 08:12] LABS: POTASSIUM 3.6 mmol/L (3.5-5.1)
[2023-03-11 08:26] LABS: ALBUMIN 1.8 g/dl (3.4-5.0); BLOOD UREA NITROGEN 43.9 mg/dL (7-18); CALCIUM 8.4 mg/dL (8.5-10.1); MAGNESIUM 2.1 mg/dL (1.8-2.4)
[2023-03-11 08:29] LABS: BILIRUBIN,TOTAL 0.6 mg/dL (0.2-1); CREATININE 2.4 mg/dL (0.55-1.3); PHOSPHOROUS 4.7 mg/dL (2.5-4.9); TOT PROT 5.5 g/dl (6.4-8.2)
[2023-03-11] MEDS: TICAGRELOR 90 MG TABLET PO SCH ×2 (10:11→21:16)
[2023-03-11] MEDS: MULTIVITAMINS (DAILY MVI) TABLET (FP) PO SCH (10:11)
[2023-03-11] MEDS: ASPIRIN COATED 81 MG TABLET.EC PO SCH (10:12)
[2023-03-11] MEDS: CEFTRIAXONE 1 GM in DEXTROSE 5%-WATER - 50 ML IVPB SCH (10:12)
[2023-03-11] MEDS: PANTOPRAZOLE 40 MG TABLET PO SCH (10:12)
[2023-03-11] MEDS: PARoxetine HCL 20 MG TABLET PO SCH (10:12)
[2023-03-11] MEDS: ASCORBIC ACID 250 MG TABLET (FP) PO SCH (10:12)
[2023-03-11] MEDS: EPLERENONE 25 MG TABLET PO SCH (10:14)
[2023-03-11] MEDS: GABAPENTIN 100 MG CAPSULE PO SCH ×2 (10:16→21:17)
[2023-03-11] MEDS: SILVER SULFADIAZINE 1% TOP CREAM 50 GM JAR TP SCH (10:37)
[2023-03-11] MEDS ORDERED: INSULIN (NOVOLOG) ASPART 100 UNITS/ML 10ML VIAL ONE (11:04)
[2023-03-11] MEDS ORDERED: POTASSIUM CHLORIDE 10 MEQ in SODIUM CHLORIDE 0.45% 1,000 ML IVPB SCH (12:45)
[2023-03-11] MEDS: GENTAMICIN SO4 0.1% TOPICAL OINTMENT 15 GM/TUBE TUBE TP SCH ×2 (13:54→21:16)
[2023-03-11] MEDS: POVIDONE-IODINE 10% SOLN 118 ML BOTTLE TP SCH (13:55)
[2023-03-11] MEDS: AMINO ACIDS/PROTEIN HYDROLYS 30 ML LIQUID.PKT PO SCH ×2 (16:38→16:42)
[2023-03-11] MEDS: ATORVASTATIN CA 80 MG TABLET (FP) PO SCH (21:16)
[2023-03-11] MEDS: HEPARIN NA (PORCINE) 5,000 UNITS/ML 1ML VIAL SQ SCH (21:18)
[2023-03-12] MEDS: INSULIN SLIDING SCALE (NOVOLOG) 1 VIAL SQ SCH ×3 (06:15→16:05)
[2023-03-12] MEDS: HEPARIN NA (PORCINE) 5,000 UNITS/ML 1ML VIAL SQ SCH ×3 (06:15→22:06)
[2023-03-12 07:40] LABS: BASO % 0.6 % (0-2.0); EOS % 1.4 % (0-4.5); HEMOGLOBIN 11.3 GM/dL (10.7-15.3); LYMPH % 2.9 % (8-40); MCH 26.7 pg (25.7-33.7); MCHC 32.2 g/dl (32.0-36.0); MEAN CELL VOLUME 83.1 fl (80-96); MEAN PLT VOLUME 6.8 fl (7.5-11.1); MONO % 6.4 % (3.8-10.2); NEUT % 88.7 % (42.8-82.8); PLATELET COUNT 416 10^3/uL (134-434); RBC 4.22 M/mm3 (3.60-5.2); RDW 17.6 % (11.6-15.6); WHITE BLOOD COUNT 12.3 K/mm3 (4.0-10.0)
[2023-03-12 07:59] LABS: POTASSIUM 4.1 mmol/L (3.5-5.1)
[2023-03-12 08:12] LABS: CALCIUM 8.7 mg/dL (8.5-10.1)
[2023-03-12 08:13] LABS: ALBUMIN 2.1 g/dl (3.4-5.0); BLOOD UREA NITROGEN 34.6 mg/dL (7-18); MAGNESIUM 2.1 mg/dL (1.8-2.4)
[2023-03-12 08:16] LABS: CREATININE 1.1 mg/dL (0.55-1.3); PHOSPHOROUS 3.3 mg/dL (2.5-4.9)
[2023-03-12 08:18] LABS: BILIRUBIN,TOTAL 0.6 mg/dL (0.2-1); TOT PROT 6.1 g/dl (6.4-8.2)
[2023-03-12] MEDS: AMINO ACIDS/PROTEIN HYDROLYS 30 ML LIQUID.PKT PO SCH ×3 (09:32→16:34)
[2023-03-12] MEDS: PANTOPRAZOLE 40 MG TABLET PO SCH (09:33)
[2023-03-12] MEDS: GABAPENTIN 100 MG CAPSULE PO SCH ×2 (09:33→22:06)
[2023-03-12] MEDS: CEFTRIAXONE 1 GM in DEXTROSE 5%-WATER - 50 ML IVPB SCH (09:33)
[2023-03-12] MEDS: ASCORBIC ACID 250 MG TABLET (FP) PO SCH (09:33)
[2023-03-12] MEDS: MULTIVITAMINS (DAILY MVI) TABLET (FP) PO SCH (09:33)
[2023-03-12] MEDS: GENTAMICIN SO4 0.1% TOPICAL OINTMENT 15 GM/TUBE TUBE TP SCH ×2 (09:34→22:20)
[2023-03-12] MEDS: PARoxetine HCL 20 MG TABLET PO SCH (10:17)
[2023-03-12] MEDS: ASPIRIN COATED 81 MG TABLET.EC PO SCH (10:17)
[2023-03-12] MEDS: TICAGRELOR 90 MG TABLET PO SCH ×2 (10:17→22:06)
[2023-03-12] MEDS: POVIDONE-IODINE 10% SOLN 118 ML BOTTLE TP SCH (10:18)
[2023-03-12] MEDS: SILVER SULFADIAZINE 1% TOP CREAM 50 GM JAR TP SCH (10:18)
[2023-03-12] MEDS: EPLERENONE 25 MG TABLET PO SCH (10:18)
[2023-03-12] MEDS ORDERED: oxyCODONE HCL 5 MG TABLET PO PRN (10:52)
[2023-03-12] MEDS ORDERED: ATORVASTATIN CA 80 MG TABLET (FP) PO SCH (22:00)
[2023-03-13] MEDS: HEPARIN NA (PORCINE) 5,000 UNITS/ML 1ML VIAL SQ SCH ×3 (06:09→23:24)
[2023-03-13] MEDS: INSULIN SLIDING SCALE (NOVOLOG) 1 VIAL SQ SCH ×3 (06:09→17:37)
[2023-03-13] MEDS: AMINO ACIDS/PROTEIN HYDROLYS 30 ML LIQUID.PKT PO SCH ×3 (10:16→17:08)
[2023-03-13] MEDS: CEFTRIAXONE 1 GM in DEXTROSE 5%-WATER - 50 ML IVPB SCH (10:16)
[2023-03-13] MEDS: ASPIRIN COATED 81 MG TABLET.EC PO SCH (10:17)
[2023-03-13] MEDS: PARoxetine HCL 20 MG TABLET PO SCH (10:17)
[2023-03-13] MEDS: ASCORBIC ACID 250 MG TABLET (FP) PO SCH (10:17)
[2023-03-13] MEDS: PANTOPRAZOLE 40 MG TABLET PO SCH (10:17)
[2023-03-13] MEDS: GABAPENTIN 100 MG CAPSULE PO SCH ×2 (10:17→23:25)
[2023-03-13] MEDS: MULTIVITAMINS (DAILY MVI) TABLET (FP) PO SCH (10:17)
[2023-03-13] MEDS: TICAGRELOR 90 MG TABLET PO SCH ×2 (10:17→23:21)
[2023-03-13] MEDS: EPLERENONE 25 MG TABLET PO SCH (11:56)
[2023-03-13] MEDS: GENTAMICIN SO4 0.1% TOPICAL OINTMENT 15 GM/TUBE TUBE TP SCH ×2 (11:56→23:24)
[2023-03-13] MEDS: SILVER SULFADIAZINE 1% TOP CREAM 50 GM JAR TP SCH (11:56)
[2023-03-13] MEDS: POVIDONE-IODINE 10% SOLN 118 ML BOTTLE TP SCH (11:57)
[2023-03-13] MEDS ORDERED: HEPARIN NA (PORCINE) 5,000 UNITS/ML 1ML VIAL ONE (15:04)
[2023-03-13] MEDS ORDERED: LIDOCAINE HCL/PF 2% SDV 5ML VIAL ONE (17:21)
[2023-03-13] MEDS ORDERED: MIDAZOLAM HCL 2 MG/2 ML SINGLE DOSE VIAL ONE (17:21)
[2023-03-13] MEDS ORDERED: PROPOFOL 20 ML ONE ×2 (17:21→17:49)
[2023-03-13] MEDS ORDERED: LIDOCAINE HCL 1%, 10 MG/ML (20ML VIAL) INF ONE (18:28)
[2023-03-13] MEDS ORDERED: LACTATED RINGERS SOLUTION 1,000 ML IV SCH (18:45)
[2023-03-13] MEDS ORDERED: ONDANSETRON 4 MG/2 ML VIAL IVPUSH PRN (18:45)
[2023-03-13] MEDS ORDERED: oxyCODONE HCL 5 MG TABLET PO PRN (19:07)
[2023-03-13] MEDS ORDERED: POVIDONE-IODINE 10% SOLN 118 ML BOTTLE TP SCH (19:07)
[2023-03-13] MEDS ORDERED: POVIDONE-IODINE 10% SOLN 118 ML BOTTLE TP PRN (19:40)
[2023-03-13] MEDS ORDERED: ATORVASTATIN CA 80 MG TABLET (FP) PO SCH (22:00)
[2023-03-14] MEDS: INSULIN SLIDING SCALE (NOVOLOG) 1 VIAL SQ SCH ×3 (06:11→17:09)
[2023-03-14] MEDS: HEPARIN NA (PORCINE) 5,000 UNITS/ML 1ML VIAL SQ SCH ×3 (06:12→22:44)
[2023-03-14 08:53] LABS: POTASSIUM 3.5 mmol/L (3.5-5.1)
[2023-03-14 09:08] LABS: BILIRUBIN,TOTAL 0.5 mg/dL (0.2-1); CALCIUM 9.1 mg/dL (8.5-10.1)
[2023-03-14 09:09] LABS: MAGNESIUM 1.8 mg/dL (1.8-2.4); PHOSPHOROUS 4.2 mg/dL (2.5-4.9)
[2023-03-14 09:10] LABS: BLOOD UREA NITROGEN 20.3 mg/dL (7-18)
[2023-03-14 09:11] LABS: CREATININE 0.8 mg/dL (0.55-1.3)
[2023-03-14] MEDS ORDERED: SILVER SULFADIAZINE 1% TOP CREAM 50 GM JAR TP SCH (10:00)
[2023-03-14] MEDS ORDERED: PANTOPRAZOLE 40 MG TABLET PO SCH (10:00)
[2023-03-14] MEDS ORDERED: ASPIRIN COATED 81 MG TABLET.EC PO SCH (10:00)
[2023-03-14] MEDS ORDERED: CEFTRIAXONE 1 GM in DEXTROSE 5%-WATER - 50 ML IVPB SCH (10:00)
[2023-03-14] MEDS ORDERED: PARoxetine HCL 20 MG TABLET PO SCH (10:00)
[2023-03-14] MEDS ORDERED: MULTIVITAMINS (DAILY MVI) TABLET (FP) PO SCH (10:00)
[2023-03-14] MEDS ORDERED: EPLERENONE 25 MG TABLET PO SCH (10:00)
[2023-03-14] MEDS ORDERED: ASCORBIC ACID 250 MG TABLET (FP) PO SCH (10:00)
[2023-03-14] MEDS: AMINO ACIDS/PROTEIN HYDROLYS 30 ML LIQUID.PKT PO SCH ×3 (10:35→17:30)
[2023-03-14] MEDS: GABAPENTIN 100 MG CAPSULE PO SCH ×2 (10:36→22:46)
[2023-03-14] MEDS: TICAGRELOR 90 MG TABLET PO SCH ×2 (10:36→22:45)
[2023-03-14] MEDS: GENTAMICIN SO4 0.1% TOPICAL OINTMENT 15 GM/TUBE TUBE TP SCH ×2 (10:44→22:49)
[2023-03-14] MEDS ORDERED: POVIDONE-IODINE 10% SOLN 118 ML BOTTLE TP PRN (21:32)
[2023-03-14] MEDS: ATORVASTATIN CA 80 MG TABLET (FP) PO SCH (22:45)
[2023-03-15] MEDS: HEPARIN NA (PORCINE) 5,000 UNITS/ML 1ML VIAL SQ SCH ×3 (06:07→22:16)
[2023-03-15] MEDS: INSULIN SLIDING SCALE (NOVOLOG) 1 VIAL SQ SCH ×3 (06:11→17:12)
[2023-03-15 07:28] LABS: HEMATOCRIT 28.9 % (32.4-45.2); HEMOGLOBIN 9.4 GM/dL (10.7-15.3); MCH 26.8 pg (25.7-33.7); MCHC 32.5 g/dl (32.0-36.0); MEAN CELL VOLUME 82.4 fl (80-96); MEAN PLT VOLUME 6.6 fl (7.5-11.1); PLATELET COUNT 340 10^3/uL (134-434); RBC 3.51 M/mm3 (3.60-5.2); RDW 17.8 % (11.6-15.6); WHITE BLOOD COUNT 9.2 K/mm3 (4.0-10.0)
[2023-03-15 07:54] LABS: POTASSIUM 3.1 mmol/L (3.5-5.1)
[2023-03-15 08:10] LABS: ALBUMIN 1.8 g/dl (3.4-5.0); BLOOD UREA NITROGEN 18.9 mg/dL (7-18); CALCIUM 8.7 mg/dL (8.5-10.1); MAGNESIUM 1.8 mg/dL (1.8-2.4)
[2023-03-15 08:13] LABS: CREATININE 0.6 mg/dL (0.55-1.3); PHOSPHOROUS 3.1 mg/dL (2.5-4.9)
[2023-03-15 08:15] LABS: BILIRUBIN,TOTAL 0.5 mg/dL (0.2-1); TOT PROT 5.3 g/dl (6.4-8.2)
[2023-03-15] MEDS ORDERED: CEFTRIAXONE 1 GM in DEXTROSE 5%-WATER - 50 ML IVPB SCH (10:00)
[2023-03-15] MEDS: AMINO ACIDS/PROTEIN HYDROLYS 30 ML LIQUID.PKT PO SCH ×3 (10:34→17:35)
[2023-03-15] MEDS: TICAGRELOR 90 MG TABLET PO SCH ×2 (10:34→23:04)
[2023-03-15] MEDS: PANTOPRAZOLE 40 MG TABLET PO SCH (10:35)
[2023-03-15] MEDS: PARoxetine HCL 20 MG TABLET PO SCH (10:35)
[2023-03-15] MEDS: GABAPENTIN 100 MG CAPSULE PO SCH ×2 (10:35→22:16)
[2023-03-15] MEDS: ASPIRIN COATED 81 MG TABLET.EC PO SCH (10:35)
[2023-03-15] MEDS: ASCORBIC ACID 250 MG TABLET (FP) PO SCH (10:36)
[2023-03-15] MEDS: MULTIVITAMINS (DAILY MVI) TABLET (FP) PO SCH (10:36)
[2023-03-15] MEDS: EPLERENONE 25 MG TABLET PO SCH (10:36)
[2023-03-15] MEDS: SILVER SULFADIAZINE 1% TOP CREAM 50 GM JAR TP SCH (10:37)
[2023-03-15] MEDS: GENTAMICIN SO4 0.1% TOPICAL OINTMENT 15 GM/TUBE TUBE TP SCH ×2 (10:37→22:18)
[2023-03-15] MEDS: SACUBITRIL/VALSARTAN 24 MG-26 MG TABLET PO SCH ×2 (15:25→22:15)
[2023-03-15] MEDS ORDERED: MAGNESIUM OXIDE 400 MG TABLET (FP) PO ONE (16:00)
[2023-03-15] MEDS: POTASSIUM CHLORIDE TABS 10 MEQ TABLET.ER (FP) PO SCH (17:34)
[2023-03-15] MEDS: AMOX TR/POT CLAV 875MG/125MG TABLETS (FP) PO SCH (17:35)
[2023-03-15] MEDS: ATORVASTATIN CA 80 MG TABLET (FP) PO SCH (22:16)
[2023-03-16] MEDS: HEPARIN NA (PORCINE) 5,000 UNITS/ML 1ML VIAL SQ SCH ×3 (06:28→22:30)
[2023-03-16] MEDS: oxyCODONE HCL 5 MG TABLET PO PRN ×2 (06:31→15:20)
[2023-03-16] MEDS: INSULIN SLIDING SCALE (NOVOLOG) 1 VIAL SQ SCH ×3 (07:37→16:34)
[2023-03-16] MEDS: SACUBITRIL/VALSARTAN 24 MG-26 MG TABLET PO SCH ×2 (09:29→22:30)
[2023-03-16] MEDS: MULTIVITAMINS (DAILY MVI) TABLET (FP) PO SCH (09:29)
[2023-03-16] MEDS: ASCORBIC ACID 250 MG TABLET (FP) PO SCH (09:29)
[2023-03-16] MEDS: ASPIRIN COATED 81 MG TABLET.EC PO SCH (09:29)
[2023-03-16] MEDS: PARoxetine HCL 20 MG TABLET PO SCH (09:29)
[2023-03-16] MEDS: PANTOPRAZOLE 40 MG TABLET PO SCH (09:29)
[2023-03-16] MEDS: POTASSIUM CHLORIDE TABS 10 MEQ TABLET.ER (FP) PO SCH (09:30)
[2023-03-16] MEDS: AMINO ACIDS/PROTEIN HYDROLYS 30 ML LIQUID.PKT PO SCH ×3 (09:30→16:39)
[2023-03-16] MEDS: GABAPENTIN 100 MG CAPSULE PO SCH ×2 (09:30→22:30)
[2023-03-16] MEDS: AMOX TR/POT CLAV 875MG/125MG TABLETS (FP) PO SCH ×2 (09:30→16:39)
[2023-03-16] MEDS: EPLERENONE 25 MG TABLET PO SCH (09:31)
[2023-03-16] MEDS: TICAGRELOR 90 MG TABLET PO SCH (09:31)
[2023-03-16] MEDS: SILVER SULFADIAZINE 1% TOP CREAM 50 GM JAR TP SCH (10:36)
[2023-03-16] MEDS: GENTAMICIN SO4 0.1% TOPICAL OINTMENT 15 GM/TUBE TUBE TP SCH ×2 (10:36→22:32)
[2023-03-16 19:51] LABS: BASO % 0.2 % (0-2.0); EOS % 2.3 % (0-4.5); HEMATOCRIT 31.1 % (32.4-45.2); HEMOGLOBIN 10.1 GM/dL (10.7-15.3); LYMPH % 4.8 % (8-40); MCH 26.6 pg (25.7-33.7); MCHC 32.5 g/dl (32.0-36.0); MEAN CELL VOLUME 81.9 fl (80-96); MEAN PLT VOLUME 6.4 fl (7.5-11.1); NEUT % 81.7 % (42.8-82.8); PLATELET COUNT 346 10^3/uL (134-434); RBC 3.79 M/mm3 (3.60-5.2); RDW 18.1 % (11.6-15.6); WHITE BLOOD COUNT 10.8 K/mm3 (4.0-10.0)
[2023-03-16 19:54] LABS: POTASSIUM 4.1 mmol/L (3.5-5.1)
[2023-03-16 19:56] LABS: CALCIUM 8.8 mg/dL (8.5-10.1)
[2023-03-16 19:57] LABS: ALBUMIN 2.1 g/dl (3.4-5.0); BLOOD UREA NITROGEN 17.3 mg/dL (7-18); MAGNESIUM 1.8 mg/dL (1.8-2.4)
[2023-03-16 20:00] LABS: CREATININE 0.6 mg/dL (0.55-1.3); PHOSPHOROUS 2.9 mg/dL (2.5-4.9)
[2023-03-16 20:01] LABS: BILIRUBIN,TOTAL 0.6 mg/dL (0.2-1); TOT PROT 6.2 g/dl (6.4-8.2)
[2023-03-16] MEDS: ATORVASTATIN CA 80 MG TABLET (FP) PO SCH (22:30)
[2023-03-17] MEDS: TICAGRELOR 90 MG TABLET PO SCH ×4 (00:12→21:56)
[2023-03-17] MEDS: INSULIN SLIDING SCALE (NOVOLOG) 1 VIAL SQ SCH ×3 (06:42→17:22)
[2023-03-17] MEDS: HEPARIN NA (PORCINE) 5,000 UNITS/ML 1ML VIAL SQ SCH ×3 (06:42→21:56)
[2023-03-17] MEDS: AMINO ACIDS/PROTEIN HYDROLYS 30 ML LIQUID.PKT PO SCH ×3 (09:00→17:05)
[2023-03-17 09:17] LABS: HEMATOCRIT 29.9 % (32.4-45.2); HEMOGLOBIN 9.5 GM/dL (10.7-15.3); MCH 26.6 pg (25.7-33.7); MCHC 31.8 g/dl (32.0-36.0); MEAN CELL VOLUME 83.8 fl (80-96); MEAN PLT VOLUME 6.7 fl (7.5-11.1); PLATELET COUNT 356 10^3/uL (134-434); RBC 3.57 M/mm3 (3.60-5.2); RDW 18.1 % (11.6-15.6); WHITE BLOOD COUNT 11.7 K/mm3 (4.0-10.0)
[2023-03-17 09:46] LABS: POTASSIUM 3.8 mmol/L (3.5-5.1)
[2023-03-17] MEDS: MULTIVITAMINS (DAILY MVI) TABLET (FP) PO SCH (09:50)
[2023-03-17] MEDS: ASCORBIC ACID 250 MG TABLET (FP) PO SCH (09:50)
[2023-03-17] MEDS: PANTOPRAZOLE 40 MG TABLET PO SCH (09:50)
[2023-03-17] MEDS: GABAPENTIN 100 MG CAPSULE PO SCH ×2 (09:50→21:56)
[2023-03-17] MEDS: AMOX TR/POT CLAV 875MG/125MG TABLETS (FP) PO SCH ×2 (09:50→17:05)
[2023-03-17] MEDS: SACUBITRIL/VALSARTAN 24 MG-26 MG TABLET PO SCH ×2 (09:50→21:56)
[2023-03-17] MEDS: POTASSIUM CHLORIDE TABS 10 MEQ TABLET.ER (FP) PO SCH (09:51)
[2023-03-17] MEDS: PARoxetine HCL 20 MG TABLET PO SCH (09:52)
[2023-03-17] MEDS: ASPIRIN COATED 81 MG TABLET.EC PO SCH (09:52)
[2023-03-17] MEDS: EPLERENONE 25 MG TABLET PO SCH (09:52)
[2023-03-17 09:54] LABS: ALBUMIN 1.9 g/dl (3.4-5.0); CALCIUM 8.5 mg/dL (8.5-10.1)
[2023-03-17] MEDS: SILVER SULFADIAZINE 1% TOP CREAM 50 GM JAR TP SCH (09:54)
[2023-03-17] MEDS: GENTAMICIN SO4 0.1% TOPICAL OINTMENT 15 GM/TUBE TUBE TP SCH ×2 (09:54→22:35)
[2023-03-17 09:55] LABS: BLOOD UREA NITROGEN 15.8 mg/dL (7-18)
[2023-03-17 09:57] LABS: CREATININE 0.5 mg/dL (0.55-1.3)
[2023-03-17 09:59] LABS: BILIRUBIN,TOTAL 0.8 mg/dL (0.2-1); TOT PROT 5.6 g/dl (6.4-8.2)
[2023-03-17] MEDS: COLLAGENASE CLOSTRIDIUM HIST. 30 GRAMS TUBE TP SCH (17:22)
[2023-03-17] MEDS: ATORVASTATIN CA 80 MG TABLET (FP) PO SCH (21:56)
[2023-03-18] MEDS: HEPARIN NA (PORCINE) 5,000 UNITS/ML 1ML VIAL SQ SCH ×3 (06:36→22:39)
[2023-03-18] MEDS: INSULIN SLIDING SCALE (NOVOLOG) 1 VIAL SQ SCH ×3 (07:23→16:55)
[2023-03-18 08:17] LABS: BASO % 0.7 % (0-2.0); EOS % 1.3 % (0-4.5); HEMOGLOBIN 8.9 GM/dL (10.7-15.3); LYMPH % 3.4 % (8-40); MCH 26.9 pg (25.7-33.7); MCHC 33.1 g/dl (32.0-36.0); MEAN CELL VOLUME 81.1 fl (80-96); MEAN PLT VOLUME 6.1 fl (7.5-11.1); MONO % 9.4 % (3.8-10.2); NEUT % 85.2 % (42.8-82.8); PLATELET COUNT 319 10^3/uL (134-434); RBC 3.33 M/mm3 (3.60-5.2); RDW 18.4 % (11.6-15.6); WHITE BLOOD COUNT 9.7 K/mm3 (4.0-10.0)
[2023-03-18 08:24] LABS: POTASSIUM 3.4 mmol/L (3.5-5.1)
[2023-03-18 08:37] LABS: CALCIUM 7.8 mg/dL (8.5-10.1)
[2023-03-18 08:38] LABS: ALBUMIN 1.9 g/dl (3.4-5.0); BLOOD UREA NITROGEN 10.2 mg/dL (7-18)
[2023-03-18 08:41] LABS: CREATININE 0.5 mg/dL (0.55-1.3)
[2023-03-18 08:42] LABS: BILIRUBIN,TOTAL 0.9 mg/dL (0.2-1)
[2023-03-18 08:43] LABS: TOT PROT 5.5 g/dl (6.4-8.2)
[2023-03-18] MEDS: AMINO ACIDS/PROTEIN HYDROLYS 30 ML LIQUID.PKT PO SCH ×3 (08:50→17:45)
[2023-03-18] MEDS: AMOX TR/POT CLAV 875MG/125MG TABLETS (FP) PO SCH ×2 (08:50→17:45)
[2023-03-18] MEDS: POTASSIUM CHLORIDE TABS 10 MEQ TABLET.ER (FP) PO SCH (09:41)
[2023-03-18] MEDS: GABAPENTIN 100 MG CAPSULE PO SCH ×2 (09:41→22:39)
[2023-03-18] MEDS: SACUBITRIL/VALSARTAN 24 MG-26 MG TABLET PO SCH ×2 (09:41→22:39)
[2023-03-18] MEDS: ASPIRIN COATED 81 MG TABLET.EC PO SCH (09:42)
[2023-03-18] MEDS: EPLERENONE 25 MG TABLET PO SCH (09:42)
[2023-03-18] MEDS: TICAGRELOR 90 MG TABLET PO SCH ×2 (09:42→22:39)
[2023-03-18] MEDS: ASCORBIC ACID 250 MG TABLET (FP) PO SCH (09:42)
[2023-03-18] MEDS: PARoxetine HCL 20 MG TABLET PO SCH (09:42)
[2023-03-18] MEDS: MULTIVITAMINS (DAILY MVI) TABLET (FP) PO SCH (09:42)
[2023-03-18] MEDS: PANTOPRAZOLE 40 MG TABLET PO SCH (09:42)
[2023-03-18] MEDS: GENTAMICIN SO4 0.1% TOPICAL OINTMENT 15 GM/TUBE TUBE TP SCH ×2 (09:43→22:40)
[2023-03-18] MEDS: COLLAGENASE CLOSTRIDIUM HIST. 30 GRAMS TUBE TP SCH (09:43)
[2023-03-18] MEDS ORDERED: POTASSIUM CHLORIDE TABS 20 MEQ TABLET.ER (FP) PO ONE (14:42)
[2023-03-18] MEDS: ATORVASTATIN CA 80 MG TABLET (FP) PO SCH (22:39)
[2023-03-19] MEDS ORDERED: SODIUM CHLORIDE 0.45% 1,000 ML IV SCH ×2 (01:00→13:11)
[2023-03-19] MEDS: INSULIN SLIDING SCALE (NOVOLOG) 1 VIAL SQ SCH ×3 (06:12→18:17)
[2023-03-19 09:02] LABS: EOS % 1.1 % (0-4.5); HEMATOCRIT 27.2 % (32.4-45.2); LYMPH % 2.7 % (8-40); MCH 26.7 pg (25.7-33.7); MEAN PLT VOLUME 6.2 fl (7.5-11.1); NEUT % 85.9 % (42.8-82.8); PLATELET COUNT 319 10^3/uL (134-434); RBC 3.36 M/mm3 (3.60-5.2); RDW 18.4 % (11.6-15.6); WHITE BLOOD COUNT 11.9 K/mm3 (4.0-10.0)
[2023-03-19 09:03] LABS: BASO % 0.3 % (0-2.0)
[2023-03-19 09:24] LABS: POTASSIUM 3.9 mmol/L (3.5-5.1)
[2023-03-19 09:27] LABS: ALBUMIN 1.8 g/dl (3.4-5.0)
[2023-03-19] MEDS: ASPIRIN COATED 81 MG TABLET.EC PO SCH (09:29)
[2023-03-19] MEDS: TICAGRELOR 90 MG TABLET PO SCH ×2 (09:29→22:26)
[2023-03-19] MEDS: PARoxetine HCL 20 MG TABLET PO SCH (09:29)
[2023-03-19] MEDS: AMINO ACIDS/PROTEIN HYDROLYS 30 ML LIQUID.PKT PO SCH ×3 (09:29→18:17)
[2023-03-19] MEDS: AMOX TR/POT CLAV 875MG/125MG TABLETS (FP) PO SCH ×2 (09:29→18:17)
[2023-03-19] MEDS: ASCORBIC ACID 250 MG TABLET (FP) PO SCH (09:29)
[2023-03-19 09:30] LABS: CREATININE 0.5 mg/dL (0.55-1.3)
[2023-03-19] MEDS: PANTOPRAZOLE 40 MG TABLET PO SCH (09:30)
[2023-03-19] MEDS: EPLERENONE 25 MG TABLET PO SCH (09:30)
[2023-03-19] MEDS: GABAPENTIN 100 MG CAPSULE PO SCH ×2 (09:30→22:26)
[2023-03-19] MEDS: POTASSIUM CHLORIDE TABS 10 MEQ TABLET.ER (FP) PO SCH (09:30)
[2023-03-19] MEDS: MULTIVITAMINS (DAILY MVI) TABLET (FP) PO SCH (09:30)
[2023-03-19] MEDS: SACUBITRIL/VALSARTAN 24 MG-26 MG TABLET PO SCH ×2 (09:30→22:26)
[2023-03-19 09:31] LABS: BILIRUBIN,TOTAL 0.8 mg/dL (0.2-1); TOT PROT 5.3 g/dl (6.4-8.2)
[2023-03-19] MEDS ORDERED: LIDOCAINE HCL 2% (20ML MULTI-DOSE VIAL) ONE ×2 (10:08→11:58)
[2023-03-19] MEDS ORDERED: BUPIVACAINE HCL/PF 0.5% (5MG/ML) 10 ML VIAL ONE (10:08)
[2023-03-19] MEDS ORDERED: PROPOFOL 20 ML ONE (10:39)
[2023-03-19] MEDS ORDERED: MIDAZOLAM HCL 2 MG/2 ML SINGLE DOSE VIAL ONE (10:40)
[2023-03-19] MEDS: GENTAMICIN SO4 0.1% TOPICAL OINTMENT 15 GM/TUBE TUBE TP SCH ×2 (11:03→22:29)
[2023-03-19] MEDS: COLLAGENASE CLOSTRIDIUM HIST. 30 GRAMS TUBE TP SCH (11:03)
[2023-03-19] MEDS ORDERED: LIDOCAINE HCL 2% (50ML VIAL) INF ONE (11:41)
[2023-03-19] MEDS ORDERED: ceFAZolin SODIUM 1 GM VIAL ONE (11:44)
[2023-03-19] MEDS ORDERED: ceFAZolin SODIUM 1 GM VIAL IVPB ONE ×2 (11:45)
[2023-03-19] MEDS ORDERED: METOPROLOL TARTRATE 5 MG/5 ML VIAL ONE (11:54)
[2023-03-19] MEDS ORDERED: ESMOLOL HCL 100,000 MCG/10 ML VIAL ONE (12:19)
[2023-03-19] MEDS ORDERED: BUPIVACAINE HCL/PF 0.5% (5 MG/ML) 30 ML VIAL IJ ONE (12:45)
[2023-03-19] MEDS ORDERED: ONDANSETRON 4 MG/2 ML VIAL IVPUSH PRN (13:01)
[2023-03-19] MEDS ORDERED: POVIDONE-IODINE 10% SOLN 118 ML BOTTLE TP PRN (13:11)
[2023-03-19] MEDS ORDERED: LACTATED RINGERS SOLUTION 1,000 ML IV SCH (13:15)
[2023-03-19] MEDS ORDERED: FLUMAZENIL 0.5 MG/5 ML VIAL ONE (15:44)
[2023-03-19] MEDS: HEPARIN NA (PORCINE) 5,000 UNITS/ML 1ML VIAL SQ SCH ×2 (18:17→22:27)
[2023-03-19] MEDS: ATORVASTATIN CA 80 MG TABLET (FP) PO SCH (22:26)
[2023-03-20] MEDS: ACETAMINOPHEN 325 MG TABLET (FP) PO PRN ×2 (04:07→22:51)
[2023-03-20 04:13] LABS: BASO % 0.3 % (0-2.0); EOS % 0.6 % (0-4.5); HEMATOCRIT 26.1 % (32.4-45.2); HEMOGLOBIN 8.6 GM/dL (10.7-15.3); LYMPH % 3.8 % (8-40); MCH 26.5 pg (25.7-33.7); MCHC 32.8 g/dl (32.0-36.0); MEAN CELL VOLUME 80.8 fl (80-96); MEAN PLT VOLUME 6.2 fl (7.5-11.1); MONO % 11.5 % (3.8-10.2); NEUT % 83.8 % (42.8-82.8); PLATELET COUNT 346 10^3/uL (134-434); RBC 3.23 M/mm3 (3.60-5.2); WHITE BLOOD COUNT 12.7 K/mm3 (4.0-10.0)
[2023-03-20 04:32] LABS: POTASSIUM 4.2 mmol/L (3.5-5.1)
[2023-03-20 04:35] LABS: ALBUMIN 1.9 g/dl (3.4-5.0); BLOOD UREA NITROGEN 11.2 mg/dL (7-18)
[2023-03-20 04:38] LABS: CREATININE 0.6 mg/dL (0.55-1.3)
[2023-03-20 04:40] LABS: TOT PROT 5.6 g/dl (6.4-8.2)
[2023-03-20 04:56] LABS: BILIRUBIN,TOTAL 0.9 mg/dL (0.2-1)
[2023-03-20] MEDS: HEPARIN NA (PORCINE) 5,000 UNITS/ML 1ML VIAL SQ SCH ×3 (05:12→22:08)
[2023-03-20] MEDS ORDERED: INSULIN (NOVOLOG) ASPART 100 UNITS/ML 10ML VIAL ONE ×6 (05:28→17:06)
[2023-03-20] MEDS: INSULIN SLIDING SCALE (NOVOLOG) 1 VIAL SQ SCH ×3 (06:44→16:38)
[2023-03-20 08:05] LABS: BASO % 0.8 % (0-2.0); EOS % 0.7 % (0-4.5); HEMATOCRIT 24.7 % (32.4-45.2); LYMPH % 4.9 % (8-40); MCH 26.5 pg (25.7-33.7); MCHC 32.3 g/dl (32.0-36.0); MEAN CELL VOLUME 82.2 fl (80-96); MEAN PLT VOLUME 6.5 fl (7.5-11.1); MONO % 12.1 % (3.8-10.2); NEUT % 81.5 % (42.8-82.8); PLATELET COUNT 350 10^3/uL (134-434); RBC 3.01 M/mm3 (3.60-5.2); RDW 18.2 % (11.6-15.6)
[2023-03-20 08:16] LABS: POTASSIUM 3.7 mmol/L (3.5-5.1)
[2023-03-20 08:32] LABS: CALCIUM 7.9 mg/dL (8.5-10.1)
[2023-03-20 08:33] LABS: ALBUMIN 1.7 g/dl (3.4-5.0); BLOOD UREA NITROGEN 10.2 mg/dL (7-18)
[2023-03-20 08:36] LABS: CREATININE 0.6 mg/dL (0.55-1.3)
[2023-03-20 08:37] LABS: TOT PROT 5.2 g/dl (6.4-8.2)
[2023-03-20] MEDS: AMINO ACIDS/PROTEIN HYDROLYS 30 ML LIQUID.PKT PO SCH ×3 (10:22→16:38)
[2023-03-20] MEDS: AMOX TR/POT CLAV 875MG/125MG TABLETS (FP) PO SCH ×2 (10:23→16:38)
[2023-03-20] MEDS: TICAGRELOR 90 MG TABLET PO SCH ×2 (10:23→22:09)
[2023-03-20] MEDS: EPLERENONE 25 MG TABLET PO SCH (10:23)
[2023-03-20] MEDS: ASPIRIN COATED 81 MG TABLET.EC PO SCH (10:23)
[2023-03-20] MEDS: ASCORBIC ACID 250 MG TABLET (FP) PO SCH (10:24)
[2023-03-20] MEDS: PARoxetine HCL 20 MG TABLET PO SCH (10:24)
[2023-03-20] MEDS: SACUBITRIL/VALSARTAN 24 MG-26 MG TABLET PO SCH ×2 (10:24→22:08)
[2023-03-20] MEDS: MULTIVITAMINS (DAILY MVI) TABLET (FP) PO SCH (10:24)
[2023-03-20] MEDS: POTASSIUM CHLORIDE TABS 10 MEQ TABLET.ER (FP) PO SCH (10:25)
[2023-03-20] MEDS: PANTOPRAZOLE 40 MG TABLET PO SCH (10:25)
[2023-03-20] MEDS: GABAPENTIN 100 MG CAPSULE PO SCH ×2 (10:26→22:08)
[2023-03-20] MEDS: GENTAMICIN SO4 0.1% TOPICAL OINTMENT 15 GM/TUBE TUBE TP SCH ×2 (10:41→22:10)
[2023-03-20] MEDS: COLLAGENASE CLOSTRIDIUM HIST. 30 GRAMS TUBE TP SCH (10:42)
[2023-03-20 12:59] LABS: EPI CELLS 21 /uL (0-25.1); HYALINE CASTS 2 /uL (0-3.1); URINE APPEARANCE CLEAR; URINE BACTERIA 3 /uL (0-1359); URINE BILIRUBIN NEGATIVE (NEGATIVE); URINE COLOR YELLOW; URINE GLUCOSE (UA) NEGATIVE (NEGATIVE); URINE KETONE 1+ (NEGATIVE); URINE LEUK ESTERASE NEGATIVE (NEGATIVE); URINE NITRITE NEGATIVE (NEGATIVE); URINE PROTEIN 1+ (NEGATIVE); URINE UROBILINOGEN 0.2 mg/dL (0.2-1.0); URINE WBC 39 /uL (0-25.8)
[2023-03-20 13:54] LABS: URINE RBC 103 /uL (0-23.9)
[2023-03-20 13:55] LABS: YEAST PRESENT (NEGATIVE)
[2023-03-20] MEDS: ATORVASTATIN CA 80 MG TABLET (FP) PO SCH (22:08)
[2023-03-21] MEDS: INSULIN SLIDING SCALE (NOVOLOG) 1 VIAL SQ SCH ×3 (06:21→16:35)
[2023-03-21] MEDS: HEPARIN NA (PORCINE) 5,000 UNITS/ML 1ML VIAL SQ SCH ×3 (06:22→22:35)
[2023-03-21] MEDS: AMOX TR/POT CLAV 875MG/125MG TABLETS (FP) PO SCH ×2 (08:34→17:14)
[2023-03-21 08:36] LABS: BASO % 0.2 % (0-2.0); EOS % 1.2 % (0-4.5); HEMATOCRIT 24.5 % (32.4-45.2); LYMPH % 3.8 % (8-40); MCH 27.4 pg (25.7-33.7); MCHC 32.6 g/dl (32.0-36.0); MEAN CELL VOLUME 83.9 fl (80-96); MEAN PLT VOLUME 6.5 fl (7.5-11.1); NEUT % 85.8 % (42.8-82.8); PLATELET COUNT 328 10^3/uL (134-434); RBC 2.92 M/mm3 (3.60-5.2); RDW 18.5 % (11.6-15.6); WHITE BLOOD COUNT 10.6 K/mm3 (4.0-10.0)
[2023-03-21 08:58] LABS: POTASSIUM 4.3 mmol/L (3.5-5.1)
[2023-03-21 09:04] LABS: ALBUMIN 1.6 g/dl (3.4-5.0); BLOOD UREA NITROGEN 11.3 mg/dL (7-18)
[2023-03-21 09:07] LABS: CALCIUM 8.1 mg/dL (8.5-10.1); CREATININE 0.5 mg/dL (0.55-1.3)
[2023-03-21 09:08] LABS: BILIRUBIN,TOTAL 0.8 mg/dL (0.2-1); TOT PROT 5.2 g/dl (6.4-8.2)
[2023-03-21] MEDS: ACETAMINOPHEN 325 MG TABLET (FP) PO PRN (10:10)
[2023-03-21] MEDS: SACUBITRIL/VALSARTAN 24 MG-26 MG TABLET PO SCH ×2 (10:14→22:34)
[2023-03-21] MEDS: PANTOPRAZOLE 40 MG TABLET PO SCH (10:14)
[2023-03-21] MEDS: TICAGRELOR 90 MG TABLET PO SCH ×2 (10:14→22:36)
[2023-03-21] MEDS: GABAPENTIN 100 MG CAPSULE PO SCH ×2 (10:14→22:34)
[2023-03-21] MEDS: PARoxetine HCL 20 MG TABLET PO SCH (10:14)
[2023-03-21] MEDS: ASCORBIC ACID 250 MG TABLET (FP) PO SCH (10:15)
[2023-03-21] MEDS: ASPIRIN COATED 81 MG TABLET.EC PO SCH (10:15)
[2023-03-21] MEDS: EPLERENONE 25 MG TABLET PO SCH (10:16)
[2023-03-21] MEDS: GENTAMICIN SO4 0.1% TOPICAL OINTMENT 15 GM/TUBE TUBE TP SCH ×2 (10:16→22:38)
[2023-03-21] MEDS: POTASSIUM CHLORIDE TABS 10 MEQ TABLET.ER (FP) PO SCH (10:16)
[2023-03-21] MEDS: AMINO ACIDS/PROTEIN HYDROLYS 30 ML LIQUID.PKT PO SCH ×3 (10:17→17:14)
[2023-03-21] MEDS: COLLAGENASE CLOSTRIDIUM HIST. 30 GRAMS TUBE TP SCH (10:34)
[2023-03-21] MEDS: MULTIVITAMINS (DAILY MVI) TABLET (FP) PO SCH (10:35)
[2023-03-21] MEDS: ATORVASTATIN CA 80 MG TABLET (FP) PO SCH (22:34)
[2023-03-21] MEDS: MIRTAZAPINE 15 MG TABLET (FP) PO SCH (22:34)
[2023-03-22] MEDS: HEPARIN NA (PORCINE) 5,000 UNITS/ML 1ML VIAL SQ SCH ×3 (06:45→22:18)
[2023-03-22] MEDS: INSULIN SLIDING SCALE (NOVOLOG) 1 VIAL SQ SCH ×3 (06:50→16:35)
[2023-03-22] MEDS: AMINO ACIDS/PROTEIN HYDROLYS 30 ML LIQUID.PKT PO SCH ×3 (09:04→17:13)
[2023-03-22] MEDS: TICAGRELOR 90 MG TABLET PO SCH ×2 (09:05→22:18)
[2023-03-22] MEDS: EPLERENONE 25 MG TABLET PO SCH (09:05)
[2023-03-22] MEDS: AMOX TR/POT CLAV 875MG/125MG TABLETS (FP) PO SCH ×2 (09:05→17:13)
[2023-03-22] MEDS: PANTOPRAZOLE 40 MG TABLET PO SCH (09:05)
[2023-03-22] MEDS: GABAPENTIN 100 MG CAPSULE PO SCH ×2 (09:05→22:18)
[2023-03-22] MEDS: ASPIRIN COATED 81 MG TABLET.EC PO SCH (09:06)
[2023-03-22] MEDS: COLLAGENASE CLOSTRIDIUM HIST. 30 GRAMS TUBE TP SCH (09:06)
[2023-03-22] MEDS: SACUBITRIL/VALSARTAN 24 MG-26 MG TABLET PO SCH ×2 (09:06→22:18)
[2023-03-22] MEDS: MULTIVITAMINS (DAILY MVI) TABLET (FP) PO SCH (09:06)
[2023-03-22] MEDS: PARoxetine HCL 20 MG TABLET PO SCH (09:06)
[2023-03-22] MEDS: GENTAMICIN SO4 0.1% TOPICAL OINTMENT 15 GM/TUBE TUBE TP SCH ×2 (09:06→22:18)
[2023-03-22] MEDS: ASCORBIC ACID 250 MG TABLET (FP) PO SCH (09:06)
[2023-03-22] MEDS: POTASSIUM CHLORIDE TABS 10 MEQ TABLET.ER (FP) PO SCH (09:06)
[2023-03-22 11:37] LABS: BASO % 0.6 % (0-2.0); EOS % 1.3 % (0-4.5); HEMATOCRIT 31.2 % (32.4-45.2); HEMOGLOBIN 9.8 GM/dL (10.7-15.3); LYMPH % 4.7 % (8-40); MCH 26.8 pg (25.7-33.7); MCHC 31.6 g/dl (32.0-36.0); MEAN CELL VOLUME 84.7 fl (80-96); MEAN PLT VOLUME 6.7 fl (7.5-11.1); MONO % 9.5 % (3.8-10.2); NEUT % 83.9 % (42.8-82.8); PLATELET COUNT 443 10^3/uL (134-434); RBC 3.68 M/mm3 (3.60-5.2); WHITE BLOOD COUNT 13.7 K/mm3 (4.0-10.0)
[2023-03-22 11:49] LABS: POTASSIUM 4.1 mmol/L (3.5-5.1)
[2023-03-22 11:51] LABS: CALCIUM 8.5 mg/dL (8.5-10.1)
[2023-03-22 11:54] LABS: CREATININE 0.6 mg/dL (0.55-1.3)
[2023-03-22 11:56] LABS: BILIRUBIN,TOTAL 0.7 mg/dL (0.2-1); TOT PROT 6.4 g/dl (6.4-8.2)
[2023-03-22] MEDS: MIRTAZAPINE 15 MG TABLET (FP) PO SCH (22:18)
[2023-03-22] MEDS: ATORVASTATIN CA 80 MG TABLET (FP) PO SCH (22:18)
[2023-03-22] MEDS: ACETAMINOPHEN 325 MG TABLET (FP) PO PRN (23:31)
[2023-03-23] MEDS: INSULIN SLIDING SCALE (NOVOLOG) 1 VIAL SQ SCH ×3 (06:46→16:13)
[2023-03-23] MEDS: HEPARIN NA (PORCINE) 5,000 UNITS/ML 1ML VIAL SQ SCH ×3 (06:46→22:34)
[2023-03-23 07:56] LABS: BASO % 0.7 % (0-2.0); EOS % 1.9 % (0-4.5); HEMOGLOBIN 9.2 GM/dL (10.7-15.3); LYMPH % 5.4 % (8-40); MCH 26.6 pg (25.7-33.7); MCHC 31.6 g/dl (32.0-36.0); MEAN CELL VOLUME 84.3 fl (80-96); MEAN PLT VOLUME 6.5 fl (7.5-11.1); MONO % 11.4 % (3.8-10.2); NEUT % 80.6 % (42.8-82.8); PLATELET COUNT 431 10^3/uL (134-434); RBC 3.44 M/mm3 (3.60-5.2); RDW 18.4 % (11.6-15.6); WHITE BLOOD COUNT 9.3 K/mm3 (4.0-10.0)
[2023-03-23 08:17] LABS: CALCIUM 8.4 mg/dL (8.5-10.1)
[2023-03-23 08:18] LABS: BLOOD UREA NITROGEN 13.6 mg/dL (7-18)
[2023-03-23 08:21] LABS: CREATININE 0.6 mg/dL (0.55-1.3)
[2023-03-23 08:27] LABS: POTASSIUM 3.9 mmol/L (3.5-5.1)
[2023-03-23] MEDS: AMINO ACIDS/PROTEIN HYDROLYS 30 ML LIQUID.PKT PO SCH ×3 (09:35→16:44)
[2023-03-23] MEDS: MULTIVITAMINS (DAILY MVI) TABLET (FP) PO SCH (09:36)
[2023-03-23] MEDS: ASCORBIC ACID 250 MG TABLET (FP) PO SCH (09:36)
[2023-03-23] MEDS: AMOX TR/POT CLAV 875MG/125MG TABLETS (FP) PO SCH ×2 (09:36→16:46)
[2023-03-23] MEDS: ASPIRIN COATED 81 MG TABLET.EC PO SCH (09:36)
[2023-03-23] MEDS: GABAPENTIN 100 MG CAPSULE PO SCH ×2 (09:36→22:34)
[2023-03-23] MEDS: PANTOPRAZOLE 40 MG TABLET PO SCH (09:37)
[2023-03-23] MEDS: PARoxetine HCL 20 MG TABLET PO SCH (09:37)
[2023-03-23] MEDS: SACUBITRIL/VALSARTAN 24 MG-26 MG TABLET PO SCH ×2 (09:38→22:34)
[2023-03-23] MEDS: POTASSIUM CHLORIDE TABS 10 MEQ TABLET.ER (FP) PO SCH (09:38)
[2023-03-23] MEDS: TICAGRELOR 90 MG TABLET PO SCH ×2 (09:42→22:34)
[2023-03-23] MEDS: EPLERENONE 25 MG TABLET PO SCH (09:42)
[2023-03-23] MEDS: COLLAGENASE CLOSTRIDIUM HIST. 30 GRAMS TUBE TP SCH ×2 (09:43→15:16)
[2023-03-23] MEDS: GENTAMICIN SO4 0.1% TOPICAL OINTMENT 15 GM/TUBE TUBE TP SCH ×2 (09:43→22:34)
[2023-03-23] MEDS ORDERED: INSULIN (NOVOLOG) ASPART 100 UNITS/ML 10ML VIAL ONE (15:54)
[2023-03-23] MEDS: SILVER SULFADIAZINE 1% TOP CREAM 50 GM JAR TP SCH (17:14)
[2023-03-23] MEDS: MIRTAZAPINE 15 MG TABLET (FP) PO SCH (22:34)
[2023-03-23] MEDS: ATORVASTATIN CA 80 MG TABLET (FP) PO SCH (22:34)
[2023-03-24] MEDS: HEPARIN NA (PORCINE) 5,000 UNITS/ML 1ML VIAL SQ SCH ×3 (06:33→21:58)
[2023-03-24] MEDS: INSULIN SLIDING SCALE (NOVOLOG) 1 VIAL SQ SCH ×3 (06:33→17:05)
[2023-03-24] MEDS: AMINO ACIDS/PROTEIN HYDROLYS 30 ML LIQUID.PKT PO SCH ×3 (10:28→17:33)
[2023-03-24] MEDS: MULTIVITAMINS (DAILY MVI) TABLET (FP) PO SCH (10:28)
[2023-03-24] MEDS: AMOX TR/POT CLAV 875MG/125MG TABLETS (FP) PO SCH ×2 (10:28→17:33)
[2023-03-24] MEDS: TICAGRELOR 90 MG TABLET PO SCH ×2 (10:28→22:04)
[2023-03-24] MEDS: ASCORBIC ACID 250 MG TABLET (FP) PO SCH (10:29)
[2023-03-24] MEDS: PANTOPRAZOLE 40 MG TABLET PO SCH (10:29)
[2023-03-24] MEDS: PARoxetine HCL 20 MG TABLET PO SCH (10:29)
[2023-03-24] MEDS: ASPIRIN COATED 81 MG TABLET.EC PO SCH (10:29)
[2023-03-24] MEDS: SACUBITRIL/VALSARTAN 24 MG-26 MG TABLET PO SCH ×2 (10:29→21:58)
[2023-03-24] MEDS: POTASSIUM CHLORIDE TABS 10 MEQ TABLET.ER (FP) PO SCH (10:30)
[2023-03-24] MEDS: GABAPENTIN 100 MG CAPSULE PO SCH ×2 (10:30→21:58)
[2023-03-24] MEDS: EPLERENONE 25 MG TABLET PO SCH (10:30)
[2023-03-24] MEDS: COLLAGENASE CLOSTRIDIUM HIST. 30 GRAMS TUBE TP SCH ×2 (10:31→12:51)
[2023-03-24] MEDS: SILVER SULFADIAZINE 1% TOP CREAM 50 GM JAR TP SCH (10:31)
[2023-03-24] MEDS: GENTAMICIN SO4 0.1% TOPICAL OINTMENT 15 GM/TUBE TUBE TP SCH ×2 (10:32→22:04)
[2023-03-24] MEDS: ATORVASTATIN CA 80 MG TABLET (FP) PO SCH (21:58)
[2023-03-24] MEDS: MIRTAZAPINE 15 MG TABLET (FP) PO SCH (21:58)
[2023-03-25] MEDS: HEPARIN NA (PORCINE) 5,000 UNITS/ML 1ML VIAL SQ SCH ×3 (05:28→22:47)
[2023-03-25] MEDS: INSULIN SLIDING SCALE (NOVOLOG) 1 VIAL SQ SCH ×3 (06:11→16:53)
[2023-03-25 08:10] LABS: HEMATOCRIT 25.8 % (32.4-45.2); HEMOGLOBIN 8.4 GM/dL (10.7-15.3); MCH 27.2 pg (25.7-33.7); MCHC 32.5 g/dl (32.0-36.0); MEAN CELL VOLUME 83.8 fl (80-96); MEAN PLT VOLUME 6.5 fl (7.5-11.1); PLATELET COUNT 402 10^3/uL (134-434); RBC 3.07 M/mm3 (3.60-5.2); RDW 18.7 % (11.6-15.6); WHITE BLOOD COUNT 8.2 K/mm3 (4.0-10.0)
[2023-03-25 08:28] LABS: POTASSIUM 3.5 mmol/L (3.5-5.1)
[2023-03-25 08:30] LABS: BLOOD UREA NITROGEN 14.2 mg/dL (7-18)
[2023-03-25 08:32] LABS: CALCIUM 8.2 mg/dL (8.5-10.1)
[2023-03-25 08:34] LABS: CREATININE 0.5 mg/dL (0.55-1.3)
[2023-03-25] MEDS: EPLERENONE 25 MG TABLET PO SCH (10:43)
[2023-03-25] MEDS: AMINO ACIDS/PROTEIN HYDROLYS 30 ML LIQUID.PKT PO SCH ×3 (10:43→16:48)
[2023-03-25] MEDS: PANTOPRAZOLE 40 MG TABLET PO SCH (10:43)
[2023-03-25] MEDS: AMOX TR/POT CLAV 875MG/125MG TABLETS (FP) PO SCH ×2 (10:43→16:48)
[2023-03-25] MEDS: GABAPENTIN 100 MG CAPSULE PO SCH ×2 (10:43→22:47)
[2023-03-25] MEDS: MULTIVITAMINS (DAILY MVI) TABLET (FP) PO SCH (10:44)
[2023-03-25] MEDS: ASPIRIN COATED 81 MG TABLET.EC PO SCH (10:44)
[2023-03-25] MEDS: SACUBITRIL/VALSARTAN 24 MG-26 MG TABLET PO SCH ×2 (10:44→22:47)
[2023-03-25] MEDS: TICAGRELOR 90 MG TABLET PO SCH ×2 (10:44→22:48)
[2023-03-25] MEDS: GENTAMICIN SO4 0.1% TOPICAL OINTMENT 15 GM/TUBE TUBE TP SCH ×2 (10:45→22:49)
[2023-03-25] MEDS: ASCORBIC ACID 250 MG TABLET (FP) PO SCH (10:45)
[2023-03-25] MEDS: POTASSIUM CHLORIDE TABS 10 MEQ TABLET.ER (FP) PO SCH (10:45)
[2023-03-25] MEDS: COLLAGENASE CLOSTRIDIUM HIST. 30 GRAMS TUBE TP SCH (10:45)
[2023-03-25] MEDS: SILVER SULFADIAZINE 1% TOP CREAM 50 GM JAR TP SCH (10:46)
[2023-03-25] MEDS: PARoxetine HCL 20 MG TABLET PO SCH (11:28)
[2023-03-25] MEDS: DRONABINOL 2.5 MG CAPSULE PO SCH (14:34)
[2023-03-25] MEDS: ACETAMINOPHEN 325 MG TABLET (FP) PO PRN (14:45)
[2023-03-25] MEDS ORDERED: HYDROmorphone HCl 2 MG/ML VIAL IVPUSH ONE (17:26)
[2023-03-25] MEDS: CEFTRIAXONE 2 GM in DEXTROSE 5%-WATER 100 ML IVPB SCH (18:26)
[2023-03-25] MEDS ORDERED: HYDROmorphone HCl 2 MG/ML VIAL IVPB ONE (18:30)
[2023-03-25] MEDS ORDERED: HYDROmorphone HCL 2 MG TABLET PO PRN (22:00)
[2023-03-25] MEDS: ATORVASTATIN CA 80 MG TABLET (FP) PO SCH (22:47)
[2023-03-25] MEDS: MIRTAZAPINE 15 MG TABLET (FP) PO SCH (22:47)
[2023-03-26] MEDS: INSULIN SLIDING SCALE (NOVOLOG) 1 VIAL SQ SCH ×3 (06:31→16:56)
[2023-03-26] MEDS: HEPARIN NA (PORCINE) 5,000 UNITS/ML 1ML VIAL SQ SCH (06:31)
[2023-03-26] MEDS: AMINO ACIDS/PROTEIN HYDROLYS 30 ML LIQUID.PKT PO SCH ×3 (08:59→17:05)
[2023-03-26 09:27] LABS: HEMATOCRIT 25.6 % (32.4-45.2); HEMOGLOBIN 8.2 GM/dL (10.7-15.3); MCH 26.6 pg (25.7-33.7); MEAN CELL VOLUME 83.3 fl (80-96); MEAN PLT VOLUME 6.7 fl (7.5-11.1); PLATELET COUNT 372 10^3/uL (134-434); RBC 3.08 M/mm3 (3.60-5.2); RDW 18.9 % (11.6-15.6); WHITE BLOOD COUNT 7.6 K/mm3 (4.0-10.0)
[2023-03-26 10:39] LABS: BLOOD UREA NITROGEN 16.3 mg/dL (7-18)
[2023-03-26 10:42] LABS: CREATININE 0.6 mg/dL (0.55-1.3)
[2023-03-26] MEDS: EPLERENONE 25 MG TABLET PO SCH (10:44)
[2023-03-26] MEDS: POTASSIUM CHLORIDE TABS 10 MEQ TABLET.ER (FP) PO SCH (10:44)
[2023-03-26] MEDS: SACUBITRIL/VALSARTAN 24 MG-26 MG TABLET PO SCH ×2 (10:44→22:59)
[2023-03-26] MEDS: TICAGRELOR 90 MG TABLET PO SCH ×2 (10:45→22:59)
[2023-03-26] MEDS: GENTAMICIN SO4 0.1% TOPICAL OINTMENT 15 GM/TUBE TUBE TP SCH ×2 (10:45→22:59)
[2023-03-26] MEDS: ASPIRIN COATED 81 MG TABLET.EC PO SCH (10:45)
[2023-03-26] MEDS: PARoxetine HCL 20 MG TABLET PO SCH (10:45)
[2023-03-26] MEDS: PANTOPRAZOLE 40 MG TABLET PO SCH (10:45)
[2023-03-26] MEDS: MULTIVITAMINS (DAILY MVI) TABLET (FP) PO SCH (10:45)
[2023-03-26] MEDS: GABAPENTIN 100 MG CAPSULE PO SCH ×2 (10:45→22:59)
[2023-03-26] MEDS: CEFTRIAXONE 2 GM in DEXTROSE 5%-WATER 100 ML IVPB SCH (10:45)
[2023-03-26] MEDS: DRONABINOL 2.5 MG CAPSULE PO SCH (10:45)
[2023-03-26] MEDS: ASCORBIC ACID 250 MG TABLET (FP) PO SCH (10:45)
[2023-03-26] MEDS: COLLAGENASE CLOSTRIDIUM HIST. 30 GRAMS TUBE TP SCH (10:46)
[2023-03-26] MEDS: SILVER SULFADIAZINE 1% TOP CREAM 50 GM JAR TP SCH (10:46)
[2023-03-26] MEDS: ATORVASTATIN CA 80 MG TABLET (FP) PO SCH (22:58)
[2023-03-26] MEDS: MIRTAZAPINE 15 MG TABLET (FP) PO SCH (22:59)
[2023-03-27] MEDS: INSULIN SLIDING SCALE (NOVOLOG) 1 VIAL SQ SCH ×3 (06:18→16:30)
[2023-03-27 08:14] LABS: HEMATOCRIT 26.8 % (32.4-45.2); HEMOGLOBIN 8.7 GM/dL (10.7-15.3); MCH 27.1 pg (25.7-33.7); MCHC 32.4 g/dl (32.0-36.0); MEAN CELL VOLUME 83.8 fl (80-96); MEAN PLT VOLUME 6.7 fl (7.5-11.1); PLATELET COUNT 375 10^3/uL (134-434); WHITE BLOOD COUNT 7.7 K/mm3 (4.0-10.0)
[2023-03-27 08:36] LABS: POTASSIUM 3.8 mmol/L (3.5-5.1)
[2023-03-27 08:37] LABS: CALCIUM 8.6 mg/dL (8.5-10.1)
[2023-03-27 08:39] LABS: BLOOD UREA NITROGEN 14.6 mg/dL (7-18)
[2023-03-27 08:41] LABS: CREATININE 0.6 mg/dL (0.55-1.3)
[2023-03-27] MEDS: CEFTRIAXONE 2 GM in DEXTROSE 5%-WATER 100 ML IVPB SCH (09:29)
[2023-03-27] MEDS: AMINO ACIDS/PROTEIN HYDROLYS 30 ML LIQUID.PKT PO SCH ×3 (09:29→16:30)
[2023-03-27] MEDS: GABAPENTIN 100 MG CAPSULE PO SCH ×2 (09:30→21:33)
[2023-03-27] MEDS: POTASSIUM CHLORIDE TABS 10 MEQ TABLET.ER (FP) PO SCH (09:30)
[2023-03-27] MEDS: DRONABINOL 2.5 MG CAPSULE PO SCH ×2 (09:30→16:30)
[2023-03-27] MEDS: ASCORBIC ACID 250 MG TABLET (FP) PO SCH (09:30)
[2023-03-27] MEDS: SACUBITRIL/VALSARTAN 24 MG-26 MG TABLET PO SCH ×2 (09:31→21:33)
[2023-03-27] MEDS: ASPIRIN COATED 81 MG TABLET.EC PO SCH (09:31)
[2023-03-27] MEDS: MULTIVITAMINS (DAILY MVI) TABLET (FP) PO SCH (09:31)
[2023-03-27] MEDS: EPLERENONE 25 MG TABLET PO SCH (09:31)
[2023-03-27] MEDS: TICAGRELOR 90 MG TABLET PO SCH ×2 (09:31→21:33)
[2023-03-27] MEDS: PARoxetine HCL 20 MG TABLET PO SCH (09:31)
[2023-03-27] MEDS: PANTOPRAZOLE 40 MG TABLET PO SCH (09:31)
[2023-03-27] MEDS: SILVER SULFADIAZINE 1% TOP CREAM 50 GM JAR TP SCH (09:32)
[2023-03-27] MEDS: GENTAMICIN SO4 0.1% TOPICAL OINTMENT 15 GM/TUBE TUBE TP SCH ×2 (09:33→21:35)
[2023-03-27] MEDS: COLLAGENASE CLOSTRIDIUM HIST. 30 GRAMS TUBE TP SCH (09:33)
[2023-03-27] MEDS ORDERED: DRONABINOL 2.5 MG CAPSULE PO SCH (12:11)
[2023-03-27] MEDS: ATORVASTATIN CA 80 MG TABLET (FP) PO SCH (21:33)
[2023-03-27] MEDS: ACETAMINOPHEN 325 MG TABLET (FP) PO PRN (21:33)
[2023-03-27] MEDS: MIRTAZAPINE 15 MG TABLET (FP) PO SCH (21:33)
[2023-03-28] MEDS: DRONABINOL 2.5 MG CAPSULE PO SCH ×2 (06:08→06:28)
[2023-03-28] MEDS: INSULIN SLIDING SCALE (NOVOLOG) 1 VIAL SQ SCH (06:08)
[2023-03-28] MEDS: SACUBITRIL/VALSARTAN 24 MG-26 MG TABLET PO SCH (09:23)
[2023-03-28] MEDS: MULTIVITAMINS (DAILY MVI) TABLET (FP) PO SCH (09:23)
[2023-03-28] MEDS: PANTOPRAZOLE 40 MG TABLET PO SCH (09:23)
[2023-03-28] MEDS: CEFTRIAXONE 2 GM in DEXTROSE 5%-WATER 100 ML IVPB SCH (09:23)
[2023-03-28] MEDS: ASCORBIC ACID 250 MG TABLET (FP) PO SCH (09:23)
[2023-03-28] MEDS: PARoxetine HCL 20 MG TABLET PO SCH (09:23)
[2023-03-28] MEDS: GABAPENTIN 100 MG CAPSULE PO SCH (09:23)
[2023-03-28] MEDS: TICAGRELOR 90 MG TABLET PO SCH (09:24)
[2023-03-28] MEDS: ASPIRIN COATED 81 MG TABLET.EC PO SCH (09:24)
[2023-03-28] MEDS: POTASSIUM CHLORIDE TABS 10 MEQ TABLET.ER (FP) PO SCH (09:24)
[2023-03-28] MEDS: AMINO ACIDS/PROTEIN HYDROLYS 30 ML LIQUID.PKT PO SCH (09:25)
[2023-03-28] MEDS: EPLERENONE 25 MG TABLET PO SCH (09:25)
[2023-03-28 10:33] VITALS: BP 127/75; PULSE 100; RESP 19; TEMP 97.9
== END 2023-03-28 11:03 | DRG 240 ==
LOC: JER 12:32 → JERBED 15:37 → J4W 19:37 → J6S 03-06 13:29 → J4W 03-07 11:06 → J7W 03-14 12:01
PROVIDERS: ADMIT Internal Medicine; ATTEND Internal Medicine
PROC: 0J9R0ZZ Drainage of Left Foot Subcutaneous Tissue and Fascia, Open Approach (ICD-10-PCS; principal; 2023-03-05)
PROC: B40GYZZ Plain Radiography of Left Lower Extremity Arteries using Other Contrast (ICD-10-PCS; 2023-03-13)
PROC: B246ZZ4 Ultrasonography of Right and Left Heart, Transesophageal (ICD-10-PCS; 2023-03-13)
PROC: 0Y6N0Z9 Detachment at Left Foot, Partial 1st Ray, Open Approach (ICD-10-PCS; 2023-03-20)
PROC: 0QBQ0ZZ Excision of Right Toe Phalanx, Open Approach (ICD-10-PCS; 2023-03-20)
PROC: 0Y6N0ZB Detachment at Left Foot, Partial 2nd Ray, Open Approach (ICD-10-PCS; 2023-03-20)
PROC: 0Y6N0ZC Detachment at Left Foot, Partial 3rd Ray, Open Approach (ICD-10-PCS; 2023-03-20)
PROC: 0Y6N0ZD Detachment at Left Foot, Partial 4th Ray, Open Approach (ICD-10-PCS; 2023-03-20)
PROC: 0Y6N0ZF Detachment at Left Foot, Partial 5th Ray, Open Approach (ICD-10-PCS; 2023-03-20)
PROC: 0QBR0ZX Excision of Left Toe Phalanx, Open Approach, Diagnostic (ICD-10-PCS; 2023-03-20)
PROC: 0QBQ0ZX Excision of Right Toe Phalanx, Open Approach, Diagnostic (ICD-10-PCS; 2023-03-20)
PROC: 02HV33Z Insertion of Infusion Device into Superior Vena Cava, Percutaneous Approach (ICD-10-PCS; 2023-03-27)
PROC: B518ZZA Fluoroscopy of Superior Vena Cava, Guidance (ICD-10-PCS; 2023-03-27)
DX: E11.52 Type 2 diabetes mellitus with diabetic peripheral angiopathy with gangrene (principal); I50.42 Chronic combined systolic (congestive) and diastolic (congestive) heart failure; I96 Gangrene, not elsewhere classified; N39.0 Urinary tract infection, site not specified; L03.116 Cellulitis of left lower limb; L97.528 Non-pressure chronic ulcer of other part of left foot with other specified severity; L02.612 Cutaneous abscess of left foot; M86.8X7 Other osteomyelitis, ankle and foot; N17.9 Acute kidney failure, unspecified; L98.498 Non-pressure chronic ulcer of skin of other sites with other specified severity; I75.023 Atheroembolism of bilateral lower extremities; I76 Septic arterial embolism; E11.69 Type 2 diabetes mellitus with other specified complication; I25.10 Atherosclerotic heart disease of native coronary artery without angina pectoris; M25.872 Other specified joint disorders, left ankle and foot; L03.032 Cellulitis of left toe; L03.031 Cellulitis of right toe; I11.0 Hypertensive heart disease with heart failure; E11.621 Type 2 diabetes mellitus with foot ulcer; K21.9 Gastro-esophageal reflux disease without esophagitis; F41.8 Other specified anxiety disorders; B96.20 Unspecified Escherichia coli [E. coli] as the cause of diseases classified elsewhere; D64.9 Anemia, unspecified; M79.671 Pain in right foot; M79.672 Pain in left foot; R94.31 Abnormal electrocardiogram [ECG] [EKG]; E87.6 Hypokalemia; I77.1 Stricture of artery; E78.5 Hyperlipidemia, unspecified; B95.7 Other staphylococcus as the cause of diseases classified elsewhere; M10.9 Gout, unspecified; I25.5 Ischemic cardiomyopathy; Z85.3 Personal history of malignant neoplasm of breast; Z95.5 Presence of coronary angioplasty implant and graft
CPT/HCPCS: 0241U-QW; 36415; 36569; 36600; 70551-TC; 71045-TC-FY; 73630-TC-LT; 73630-TC-RT-FY; 73718-TC-LT; 75635-TC; 76000-TC-FY; 76775-TC; 80048; 80053; 81003; 82550; 82553; 82803; 82962; 83605; 83735; 84100; 84484; 84550; 85025; 85027; 85610; 85651; 85730; 86140; 86850; 86900; 86901; 87040; 87070; 87075; 87086; 87186; 87205; 88305-TC; 88307-TC; 88311-TC; 93005; 93010; 93306-TC; 93312; 93325; 93925-TC; 94010; 94760; 97116-GP; 97162-GP; 99285-25; C1760; G0480; J1644; Q9967

== ENCOUNTER 2023-04-07 10:19 | Inpatient (IN) | payer OTHER ==
[2023-04-07] MEDS ORDERED: SODIUM CHLORIDE 0.9% 500 ML INFUS.BAG IV ONE (10:35)
[2023-04-07 11:34] LABS: VENOUS BASE EXCESS -20.3 mmol/L (-2-2); VENOUS O2 SATURATION 89.7 % (70-80); VENOUS PCO2 19.5 mmHg (38-52)
[2023-04-07 11:36] LABS: HEMATOCRIT 43.4 % (32.4-45.2); HEMOGLOBIN 13.2 GM/dL (10.7-15.3); MCH 27.3 pg (25.7-33.7); MCHC 30.5 g/dl (32.0-36.0); MEAN CELL VOLUME 89.6 fl (80-96); MEAN PLT VOLUME 7.1 fl (7.5-11.1); PLATELET COUNT 290 10^3/uL (134-434); RBC 4.85 M/mm3 (3.60-5.2); WHITE BLOOD COUNT 17.1 K/mm3 (4.0-10.0)
[2023-04-07 11:39] LABS: EPI CELLS 2 /uL (0-25.1); HYALINE CASTS 0 /uL (0-3.1); URINE APPEARANCE CLEAR; URINE BACTERIA 0 /uL (0-1359); URINE BILIRUBIN NEGATIVE (NEGATIVE); URINE COLOR YELLOW; URINE GLUCOSE (UA) NEGATIVE (NEGATIVE); URINE KETONE TRACE (NEGATIVE); URINE LEUK ESTERASE TRACE (NEGATIVE); URINE NITRITE NEGATIVE (NEGATIVE); URINE PROTEIN NEGATIVE (NEGATIVE); URINE UROBILINOGEN 0.2 mg/dL (0.2-1.0); URINE WBC 73 /uL (0-25.8)
[2023-04-07 11:43] LABS: INR 1.32 (0.83-1.09); PROTHROMBIN TIME (PATIENT) 15.3 SEC (9.7-13.0)
[2023-04-07 11:45] LABS: VENOUS PH 7.152 (7.310-7.410)
[2023-04-07 11:46] LABS: ACTIVATED PTT 25.9 SECONDS (25.2-36.5)
[2023-04-07 11:58] LABS: URINE RBC 1677.8 /uL (0-23.9); YEAST PRESENT (NEGATIVE)
[2023-04-07 12:02] LABS: ANISOCYTOSIS 2+; MACROCYTOSIS 0
[2023-04-07] MEDS ORDERED: PIPERACILLIN/TAZOB 4.5 GM 4.5 GM in DEXTROSE 5%-WATER 100 ML IVPB ONE (12:09)
[2023-04-07] MEDS ORDERED: VANCOMYCIN 1 GM in D5W (PRE-DOCKED) 1,000 MG/250 ML (RESTRICTED TO ID ONLY IVPB ONE (12:09)
[2023-04-07] MEDS ORDERED: VANCOMYCIN/WATER FOR INJ (PEG) 1,000 MG/200 ML BAG IVPB ONE (12:21)
[2023-04-07] MEDS ORDERED: PIPERACILLIN/TAZOB 4.5 GM 4.5 GM/100 ML BAG IVPB ONE (12:21)
[2023-04-07 12:22] LABS: CHLORIDE 100 mmol/L (98-107); SODIUM 140 mmol/L (136-145)
[2023-04-07 12:25] LABS: CALCIUM 7.6 mg/dL (8.5-10.1)
[2023-04-07 12:26] LABS: CO2 8 mmol/L (21-32); GLUCOSE,RANDOM 101 mg/dL (74-106)
[2023-04-07 12:29] LABS: SGOT/AST 35 U/L (15-37); SGPT/ALT 19 U/L (13-61)
[2023-04-07 12:30] LABS: BILIRUBIN,TOTAL 0.4 mg/dL (0.2-1); TOT PROT 6.1 g/dl (6.4-8.2)
[2023-04-07 12:31] LABS: ALK PHOS 97 U/L (45-117)
[2023-04-07 12:39] LABS: ANION GAP 32 MMOL/L (8-16); BLOOD UREA NITROGEN 82.7 mg/dL (7-18); CREATININE 8.5 mg/dL (0.55-1.3); POTASSIUM 6.2 mmol/L (3.5-5.1)
[2023-04-07] MEDS ORDERED: CALCIUM GLUCONATE 10% - 1,000 MG/10 ML VIAL ONE (12:43)
[2023-04-07] MEDS ORDERED: DEXTROSE 50%-WATER 25 GM/50 ML DISP.SYRIN ONE (12:43)
[2023-04-07] MEDS ORDERED: DEXTROSE 50%-WATER - 25 GM/50 ML VIAL IVPUSH ONE (13:31)
[2023-04-07] MEDS ORDERED: CALCIUM GLUCONATE 10% - 1,000 MG/10 ML VIAL IVPB ONE (13:31)
[2023-04-07] MEDS ORDERED: INSULIN REGULAR HUMAN 100 UNITS/ML *VIAL IVPUSH ONE (13:31)
[2023-04-07] MEDS ORDERED: SODIUM BICARBONATE 8.4% 50 MEQ/50 ML VIAL IV ONE (14:01)
[2023-04-07] MEDS ORDERED: SODIUM BICARBONATE 8.4% 50 MEQ/50 ML VIAL ONE (14:51)
[2023-04-07 15:26] LABS: LACTIC ACID 10.6 mmol/L (0.4-2.0)
[2023-04-07 15:35] LABS: CHLORIDE 101 mmol/L (98-107); POTASSIUM 5.1 mmol/L (3.5-5.1); SODIUM 142 mmol/L (136-145)
[2023-04-07 15:37] LABS: CALCIUM 7.7 mg/dL (8.5-10.1)
[2023-04-07 15:38] LABS: ALBUMIN 1.8 g/dl (3.4-5.0); ANION GAP 34 MMOL/L (8-16); BLOOD UREA NITROGEN 89.5 mg/dL (7-18); CO2 7 mmol/L (21-32); GLUCOSE,RANDOM 118 mg/dL (74-106)
[2023-04-07 15:41] LABS: SGOT/AST 31 U/L (15-37); SGPT/ALT 19 U/L (13-61)
[2023-04-07 15:42] LABS: BILIRUBIN,TOTAL 0.4 mg/dL (0.2-1); TOT PROT 5.6 g/dl (6.4-8.2)
[2023-04-07 15:44] LABS: ALK PHOS 87 U/L (45-117)
[2023-04-07 15:47] LABS: CREATININE 8.7 mg/dL (0.55-1.3)
[2023-04-07 15:49] LABS: VENOUS BASE EXCESS -17.7 mmol/L (-2-2); VENOUS O2 SATURATION 76.6 % (70-80); VENOUS PCO2 24.9 mmHg (38-52)
[2023-04-07 15:53] LABS: VENOUS PH 7.181 (7.310-7.410)
[2023-04-07] MEDS: INSULIN SLIDING SCALE (NOVOLOG) 1 VIAL SQ SCH ×2 (16:00→23:43)
[2023-04-07] MEDS ORDERED: SODIUM CHLORIDE 1,000 ML IV SCH (16:00)
[2023-04-07] MEDS: LACTATED RINGERS SOLUTION 1,000 ML/1,000 ML INFUS.BAG IV SCH (17:25)
[2023-04-07] MEDS ORDERED: SODIUM CHLORIDE 250 ML IV PRN (17:26)
[2023-04-07 19:58] LABS: CHLORIDE 100 mmol/L (98-107); POTASSIUM 5.2 mmol/L (3.5-5.1); SODIUM 141 mmol/L (136-145)
[2023-04-07 19:59] LABS: CALCIUM 7.6 mg/dL (8.5-10.1)
[2023-04-07 20:00] LABS: ANION GAP 30 MMOL/L (8-16); BLOOD UREA NITROGEN 90.4 mg/dL (7-18); CO2 11 mmol/L (21-32); GLUCOSE,RANDOM 125 mg/dL (74-106)
[2023-04-07 20:18] LABS: LACTIC ACID 9.8 mmol/L (0.4-2.0)
[2023-04-07 20:40] LABS: ALBUMIN 1.9 g/dl (3.4-5.0)
[2023-04-07 20:43] LABS: BILIRUBIN,DIRECT 0.2 mg/dL (0.0-0.2); SGOT/AST 36 U/L (15-37); SGPT/ALT 19 U/L (13-61)
[2023-04-07 20:45] LABS: BILIRUBIN,TOTAL 0.4 mg/dL (0.2-1); TOT PROT 5.8 g/dl (6.4-8.2)
[2023-04-07 20:46] LABS: ALK PHOS 88 U/L (45-117)
[2023-04-07 20:59] LABS: CREATININE 8.5 mg/dL (0.55-1.3)
[2023-04-07] MEDS ORDERED: PIPERACILLIN/TAZOB 2.25 GM 2.25 GM in DEXTROSE 5%-WATER - 50 ML IVPB SCH (21:45)
[2023-04-07 22:47] LABS: VENOUS BASE EXCESS -5.5 mmol/L (-2-2); VENOUS O2 SATURATION 73.2 % (70-80); VENOUS PCO2 33.6 mmHg (38-52); VENOUS PH 7.369 (7.310-7.410)
[2023-04-07 23:26] LABS: POTASSIUM 3.7 mmol/L (3.5-5.1)
[2023-04-07 23:29] LABS: ALBUMIN 1.6 g/dl (3.4-5.0); CALCIUM 7.4 mg/dL (8.5-10.1)
[2023-04-07 23:32] LABS: CREATININE 4.4 mg/dL (0.55-1.3)
[2023-04-07 23:34] LABS: TOT PROT 4.9 g/dl (6.4-8.2)
[2023-04-07 23:44] LABS: BILIRUBIN,TOTAL 0.3 mg/dL (0.2-1); BLOOD UREA NITROGEN 46.5 mg/dL (7-18)
[2023-04-07] MEDS: MUPIROCIN 2% TOPICAL OINTMENT FOR DECOLONIZATION NS SCH (23:44)
[2023-04-07] MEDS: CHLORHEXIDINE GLUCONATE 4% CLEANSER FOR DECOLONIZATION TP SCH (23:45)
[2023-04-07] MEDS: PIPERACILLIN/TAZOB 2.25 GM 2.25 GM in DEXTROSE 5%-WATER - 50 ML IVPB SCH (23:45)
[2023-04-07] MEDS: HEPARIN NA (PORCINE) 5,000 UNITS/ML 1ML VIAL SQ SCH (23:45)
[2023-04-08] MEDS: ATORVASTATIN CA 80 MG TABLET (FP) PO SCH ×2 (00:23→22:20)
[2023-04-08] MEDS: MIRTAZAPINE 15 MG TABLET (FP) PO SCH ×2 (00:23→22:20)
[2023-04-08] MEDS: TICAGRELOR 90 MG TABLET PO SCH ×3 (00:31→22:20)
[2023-04-08 02:19] LABS: LACTIC ACID 4.2 mmol/L (0.4-2.0)
[2023-04-08] MEDS: PIPERACILLIN/TAZOB 2.25 GM 2.25 GM in DEXTROSE 5%-WATER - 50 ML IVPB SCH ×4 (04:08→22:19)
[2023-04-08] MEDS: HEPARIN NA (PORCINE) 5,000 UNITS/ML 1ML VIAL SQ SCH ×3 (06:35→22:19)
[2023-04-08] MEDS: INSULIN SLIDING SCALE (NOVOLOG) 1 VIAL SQ SCH ×4 (06:36→22:36)
[2023-04-08 07:25] LABS: HEMATOCRIT 22.3 % (32.4-45.2); MCH 27.2 pg (25.7-33.7); MCHC 31.3 g/dl (32.0-36.0); MEAN CELL VOLUME 86.9 fl (80-96); MEAN PLT VOLUME 7.5 fl (7.5-11.1); PLATELET COUNT 182 10^3/uL (134-434); RBC 2.56 M/mm3 (3.60-5.2); RDW 19.7 % (11.6-15.6); WHITE BLOOD COUNT 27.2 K/mm3 (4.0-10.0)
[2023-04-08 07:45] LABS: MAGNESIUM 1.8 mg/dL (1.8-2.4)
[2023-04-08 07:47] LABS: CALCIUM 7.1 mg/dL (8.5-10.1)
[2023-04-08 07:48] LABS: ALBUMIN 1.6 g/dl (3.4-5.0); CREATININE 5.1 mg/dL (0.55-1.3); PHOSPHOROUS 5.6 mg/dL (2.5-4.9)
[2023-04-08 07:49] LABS: BILIRUBIN,TOTAL 0.4 mg/dL (0.2-1); TOT PROT 4.6 g/dl (6.4-8.2)
[2023-04-08 08:12] LABS: LACTIC ACID 2.2 mmol/L (0.4-2.0)
[2023-04-08 08:42] LABS: ANISOCYTOSIS 2+; MACROCYTOSIS 0
[2023-04-08] MEDS: ASPIRIN COATED 81 MG TABLET.EC PO SCH (09:27)
[2023-04-08] MEDS: PARoxetine HCL 20 MG TABLET PO SCH (09:28)
[2023-04-08] MEDS: MUPIROCIN 2% TOPICAL OINTMENT FOR DECOLONIZATION NS SCH ×2 (09:29→22:20)
[2023-04-08] MEDS: LACTATED RINGERS SOLUTION 1,000 ML/1,000 ML INFUS.BAG IV SCH ×2 (14:15→16:01)
[2023-04-08] MEDS ORDERED: INSULIN (NOVOLOG) ASPART 100 UNITS/ML 10ML VIAL ONE ×2 (16:03→22:35)
[2023-04-08 17:48] LABS: HEMOGLOBIN 7.3 GM/dL (10.7-15.3); MCHC 31.6 g/dl (32.0-36.0); MEAN CELL VOLUME 85.4 fl (80-96); MEAN PLT VOLUME 6.7 fl (7.5-11.1); PLATELET COUNT 194 10^3/uL (134-434); RDW 20.4 % (11.6-15.6); WHITE BLOOD COUNT 27.4 K/mm3 (4.0-10.0)
[2023-04-08] MEDS: CHLORHEXIDINE GLUCONATE 4% CLEANSER FOR DECOLONIZATION TP SCH (22:20)
[2023-04-09] MEDS: LACTATED RINGERS SOLUTION 1,000 ML/1,000 ML INFUS.BAG IV SCH ×3 (00:10→17:04)
[2023-04-09] MEDS: PIPERACILLIN/TAZOB 2.25 GM 2.25 GM in DEXTROSE 5%-WATER - 50 ML IVPB SCH ×3 (05:59→21:47)
[2023-04-09] MEDS: HEPARIN NA (PORCINE) 5,000 UNITS/ML 1ML VIAL SQ SCH (05:59)
[2023-04-09] MEDS: INSULIN SLIDING SCALE (NOVOLOG) 1 VIAL SQ SCH ×4 (06:09→21:54)
[2023-04-09 07:42] LABS: MCHC 31.2 g/dl (32.0-36.0); MEAN CELL VOLUME 86.4 fl (80-96); MEAN PLT VOLUME 7.3 fl (7.5-11.1); PLATELET COUNT 181 10^3/uL (134-434); RBC 2.55 M/mm3 (3.60-5.2); WHITE BLOOD COUNT 21.7 K/mm3 (4.0-10.0)
[2023-04-09 07:46] LABS: HEMOGLOBIN 6.9 GM/dL (10.7-15.3)
[2023-04-09 07:51] LABS: POTASSIUM 3.5 mmol/L (3.5-5.1)
[2023-04-09 07:54] LABS: CALCIUM 7.1 mg/dL (8.5-10.1)
[2023-04-09 07:55] LABS: ALBUMIN 1.6 g/dl (3.4-5.0); MAGNESIUM 1.8 mg/dL (1.8-2.4)
[2023-04-09 07:58] LABS: CREATININE 5.3 mg/dL (0.55-1.3); PHOSPHOROUS 4.4 mg/dL (2.5-4.9)
[2023-04-09 07:59] LABS: BILIRUBIN,TOTAL 0.4 mg/dL (0.2-1); TOT PROT 4.7 g/dl (6.4-8.2)
[2023-04-09] MEDS: MUPIROCIN 2% TOPICAL OINTMENT FOR DECOLONIZATION NS SCH (09:47)
[2023-04-09] MEDS: PARoxetine HCL 20 MG TABLET PO SCH (09:47)
[2023-04-09] MEDS: ASPIRIN COATED 81 MG TABLET.EC PO SCH (09:47)
[2023-04-09] MEDS: TICAGRELOR 90 MG TABLET PO SCH ×2 (09:47→23:57)
[2023-04-09] MEDS ORDERED: PANTOPRAZOLE SODIUM 40 MG VIAL IVPUSH SCH (10:00)
[2023-04-09 10:14] LABS: ANISOCYTOSIS 0; HELMET CELLS 0; HOWELL-JOLLY BODIES 0; MACROCYTOSIS 0; OVALOCYTE 0; ROULEAU 0; SICKELED CELLS 0; TARGET CELLS 0; TEAR DROP CELLS 0; TOXIC GRANULATION 0
[2023-04-09 13:24] LABS: HEMATOCRIT 26.2 % (32.4-45.2); HEMOGLOBIN 8.6 GM/dL (10.7-15.3); MCH 27.6 pg (25.7-33.7); MCHC 32.8 g/dl (32.0-36.0); MEAN CELL VOLUME 84.3 fl (80-96); MEAN PLT VOLUME 6.7 fl (7.5-11.1); PLATELET COUNT 157 10^3/uL (134-434); RDW 19.5 % (11.6-15.6); WHITE BLOOD COUNT 23.3 K/mm3 (4.0-10.0)
[2023-04-09] MEDS: PANTOPRAZOLE SODIUM 40 MG VIAL IVPUSH SCH (21:47)
[2023-04-09] MEDS: ATORVASTATIN CA 80 MG TABLET (FP) PO SCH (23:57)
[2023-04-10] MEDS: LACTATED RINGERS SOLUTION 1,000 ML/1,000 ML INFUS.BAG IV SCH ×2 (02:29→16:31)
[2023-04-10] MEDS: PIPERACILLIN/TAZOB 2.25 GM 2.25 GM in DEXTROSE 5%-WATER - 50 ML IVPB SCH ×3 (06:15→22:00)
[2023-04-10] MEDS: INSULIN SLIDING SCALE (NOVOLOG) 1 VIAL SQ SCH ×4 (06:19→22:02)
[2023-04-10] MEDS: ASPIRIN COATED 81 MG TABLET.EC PO SCH (09:43)
[2023-04-10] MEDS: PARoxetine HCL 20 MG TABLET PO SCH (09:43)
[2023-04-10] MEDS: TICAGRELOR 90 MG TABLET PO SCH (09:43)
[2023-04-10] MEDS: PANTOPRAZOLE SODIUM 40 MG VIAL IVPUSH SCH ×2 (09:52→22:00)
[2023-04-10 10:03] LABS: HEMATOCRIT 23.8 % (32.4-45.2); HEMOGLOBIN 7.7 GM/dL (10.7-15.3); MCH 27.4 pg (25.7-33.7); MCHC 32.5 g/dl (32.0-36.0); MEAN CELL VOLUME 84.4 fl (80-96); PLATELET COUNT 126 10^3/uL (134-434); RBC 2.82 M/mm3 (3.60-5.2); RDW 18.8 % (11.6-15.6); WHITE BLOOD COUNT 12.4 K/mm3 (4.0-10.0)
[2023-04-10 10:15] LABS: POTASSIUM 3.2 mmol/L (3.5-5.1)
[2023-04-10 10:18] LABS: CALCIUM 7.5 mg/dL (8.5-10.1)
[2023-04-10 10:19] LABS: ALBUMIN 1.5 g/dl (3.4-5.0); BLOOD UREA NITROGEN 62.4 mg/dL (7-18); MAGNESIUM 1.7 mg/dL (1.8-2.4)
[2023-04-10 10:22] LABS: CREATININE 4.6 mg/dL (0.55-1.3); PHOSPHOROUS 3.7 mg/dL (2.5-4.9)
[2023-04-10 10:24] LABS: BILIRUBIN,TOTAL 0.4 mg/dL (0.2-1); TOT PROT 4.7 g/dl (6.4-8.2)
[2023-04-10 10:52] LABS: ANISOCYTOSIS 0; HELMET CELLS 0; HOWELL-JOLLY BODIES 0; MACROCYTOSIS 0; OVALOCYTE 0; ROULEAU 0; SICKELED CELLS 0; TARGET CELLS 0; TEAR DROP CELLS 0; TOXIC GRANULATION 0
[2023-04-10] MEDS ORDERED: VANCOMYCIN/WATER FOR INJ (PEG) 1,000 MG/200 ML BAG IVPB ONE (12:02)
[2023-04-10] MEDS ORDERED: PIPERACILLIN/TAZOBACTAM 2.25 GM VIAL IVPB ONE (12:33)
[2023-04-10] MEDS ORDERED: MAGNESIUM 2GM/50ML STERILE WATER IVPB IVPB ONE (13:50)
[2023-04-10] MEDS: KCL 10 MEQ IVPB 10 MEQ/100 ML INFUS.BAG IVPB SCH ×5 (16:13→18:55)
[2023-04-10] MEDS: ATORVASTATIN CA 80 MG TABLET (FP) PO SCH (22:00)
[2023-04-11] MEDS: INSULIN SLIDING SCALE (NOVOLOG) 1 VIAL SQ SCH ×4 (06:28→22:14)
[2023-04-11] MEDS: PIPERACILLIN/TAZOB 2.25 GM 2.25 GM in DEXTROSE 5%-WATER - 50 ML IVPB SCH ×3 (06:29→21:25)
[2023-04-11] MEDS: PARoxetine HCL 20 MG TABLET PO SCH (09:54)
[2023-04-11] MEDS: ASPIRIN COATED 81 MG TABLET.EC PO SCH (09:54)
[2023-04-11] MEDS: PANTOPRAZOLE SODIUM 40 MG VIAL IVPUSH SCH ×2 (09:57→21:26)
[2023-04-11 10:34] LABS: POTASSIUM 3.7 mmol/L (3.5-5.1)
[2023-04-11 10:37] LABS: CALCIUM 7.8 mg/dL (8.5-10.1)
[2023-04-11 10:38] LABS: ALBUMIN 1.6 g/dl (3.4-5.0); BLOOD UREA NITROGEN 54.4 mg/dL (7-18); MAGNESIUM 2.1 mg/dL (1.8-2.4)
[2023-04-11 10:41] LABS: CREATININE 3.6 mg/dL (0.55-1.3)
[2023-04-11 10:42] LABS: BILIRUBIN,TOTAL 0.4 mg/dL (0.2-1)
[2023-04-11 10:43] LABS: TOT PROT 5.1 g/dl (6.4-8.2)
[2023-04-11 11:20] LABS: BASO % 0.6 % (0-2.0); EOS % 1.8 % (0-4.5); HEMATOCRIT 26.8 % (32.4-45.2); HEMOGLOBIN 8.5 GM/dL (10.7-15.3); LYMPH % 4.6 % (8-40); MCH 27.7 pg (25.7-33.7); MCHC 31.8 g/dl (32.0-36.0); MEAN CELL VOLUME 87.1 fl (80-96); MEAN PLT VOLUME 6.7 fl (7.5-11.1); MONO % 3.9 % (3.8-10.2); NEUT % 89.1 % (42.8-82.8); PLATELET COUNT 126 10^3/uL (134-434); RBC 3.07 M/mm3 (3.60-5.2); RDW 20.1 % (11.6-15.6); WHITE BLOOD COUNT 9.1 K/mm3 (4.0-10.0)
[2023-04-11] MEDS: ASPIRIN 81 MG CHEWABLE TABLETS PO SCH (14:37)
[2023-04-11] MEDS: SODIUM CHLORIDE 0.45% 1,000 ML IV SCH (14:38)
[2023-04-11 20:07] LABS: ANTIGLOMERULAR BASEMENT MEN.AB <0.2 units (0.0-0.9)
[2023-04-11] MEDS ORDERED: INSULIN (NOVOLOG) ASPART 100 UNITS/ML 10ML VIAL ONE (21:19)
[2023-04-11] MEDS: METOPROLOL TARTRATE 25 MG TABLET (FP) NGT SCH (21:26)
[2023-04-11] MEDS: ATORVASTATIN CA 80 MG TABLET (FP) NGT SCH (21:26)
[2023-04-11 22:07] VITALS: BMI 25.4
[2023-04-12] MEDS: PIPERACILLIN/TAZOB 2.25 GM 2.25 GM in DEXTROSE 5%-WATER - 50 ML IVPB SCH ×3 (05:34→21:33)
[2023-04-12] MEDS: INSULIN SLIDING SCALE (NOVOLOG) 1 VIAL SQ SCH ×4 (06:24→21:41)
[2023-04-12 10:11] LABS: BASO % 0.2 % (0-2.0); EOS % 2.1 % (0-4.5); HEMATOCRIT 29.2 % (32.4-45.2); HEMOGLOBIN 9.5 GM/dL (10.7-15.3); MCH 28.2 pg (25.7-33.7); MCHC 32.7 g/dl (32.0-36.0); MEAN CELL VOLUME 86.2 fl (80-96); MEAN PLT VOLUME 6.4 fl (7.5-11.1); MONO % 4.9 % (3.8-10.2); NEUT % 86.8 % (42.8-82.8); PLATELET COUNT 142 10^3/uL (134-434); RBC 3.39 M/mm3 (3.60-5.2); RDW 19.5 % (11.6-15.6); WHITE BLOOD COUNT 8.2 K/mm3 (4.0-10.0)
[2023-04-12 10:18] LABS: POTASSIUM 3.3 mmol/L (3.5-5.1)
[2023-04-12] MEDS: COLLAGENASE CLOSTRIDIUM HIST. 30 GRAMS TUBE TP SCH (10:22)
[2023-04-12] MEDS: AMINO ACIDS/PROTEIN HYDROLYS 30 ML LIQUID.PKT PO SCH (10:22)
[2023-04-12] MEDS: PANTOPRAZOLE SODIUM 40 MG VIAL IVPUSH SCH ×3 (10:22→21:41)
[2023-04-12 10:23] LABS: CALCIUM 7.8 mg/dL (8.5-10.1)
[2023-04-12] MEDS: PARoxetine HCL 20 MG TABLET PO SCH (10:23)
[2023-04-12] MEDS: METOPROLOL TARTRATE 25 MG TABLET (FP) NGT SCH ×2 (10:23→21:33)
[2023-04-12] MEDS: ASPIRIN 81 MG CHEWABLE TABLETS PO SCH (10:23)
[2023-04-12 10:24] LABS: BLOOD UREA NITROGEN 43.7 mg/dL (7-18)
[2023-04-12 10:25] LABS: ALBUMIN 1.8 g/dl (3.4-5.0)
[2023-04-12 10:26] LABS: CREATININE 2.4 mg/dL (0.55-1.3)
[2023-04-12 10:27] LABS: TOT PROT 5.6 g/dl (6.4-8.2)
[2023-04-12 10:28] LABS: BILIRUBIN,TOTAL 0.5 mg/dL (0.2-1)
[2023-04-12] MEDS ORDERED: POTASSIUM CHLORIDE ORAL LIQUID 20 MEQ/15 ML PO ONE (13:00)
[2023-04-12] MEDS: SODIUM CHLORIDE 0.45% 1,000 ML IV SCH (16:43)
[2023-04-12] MEDS: ATORVASTATIN CA 80 MG TABLET (FP) NGT SCH (21:31)
[2023-04-13] MEDS: SODIUM CHLORIDE 0.45% 1,000 ML IV SCH ×2 (00:26→15:48)
[2023-04-13] MEDS: PIPERACILLIN/TAZOB 2.25 GM 2.25 GM in DEXTROSE 5%-WATER - 50 ML IVPB SCH ×2 (06:10→13:07)
[2023-04-13] MEDS: INSULIN SLIDING SCALE (NOVOLOG) 1 VIAL SQ SCH ×4 (06:13→21:58)
[2023-04-13] MEDS: AMINO ACIDS/PROTEIN HYDROLYS 30 ML LIQUID.PKT PO SCH (07:48)
[2023-04-13] MEDS: ASPIRIN 81 MG CHEWABLE TABLETS PO SCH (09:23)
[2023-04-13] MEDS: METOPROLOL TARTRATE 25 MG TABLET (FP) NGT SCH ×2 (09:24→21:51)
[2023-04-13] MEDS: PARoxetine HCL 20 MG TABLET PO SCH (09:24)
[2023-04-13] MEDS: COLLAGENASE CLOSTRIDIUM HIST. 30 GRAMS TUBE TP SCH (09:24)
[2023-04-13] MEDS: PANTOPRAZOLE SODIUM 40 MG VIAL IVPUSH SCH ×2 (09:24→21:51)
[2023-04-13 12:47] LABS: BASO % 0.3 % (0-2.0); EOS % 1.4 % (0-4.5); HEMATOCRIT 27.3 % (32.4-45.2); HEMOGLOBIN 8.7 GM/dL (10.7-15.3); LYMPH % 4.1 % (8-40); MCH 27.9 pg (25.7-33.7); MCHC 32.1 g/dl (32.0-36.0); MEAN PLT VOLUME 7.1 fl (7.5-11.1); MONO % 4.6 % (3.8-10.2); NEUT % 89.6 % (42.8-82.8); PLATELET COUNT 158 10^3/uL (134-434); RBC 3.13 M/mm3 (3.60-5.2); RDW 20.4 % (11.6-15.6); WHITE BLOOD COUNT 10.4 K/mm3 (4.0-10.0)
[2023-04-13 13:04] LABS: POTASSIUM 3.8 mmol/L (3.5-5.1)
[2023-04-13 13:05] LABS: CALCIUM 7.2 mg/dL (8.5-10.1)
[2023-04-13 13:06] LABS: ALBUMIN 1.7 g/dl (3.4-5.0); BLOOD UREA NITROGEN 32.7 mg/dL (7-18)
[2023-04-13 13:09] LABS: CREATININE 1.5 mg/dL (0.55-1.3)
[2023-04-13 13:11] LABS: BILIRUBIN,TOTAL 0.4 mg/dL (0.2-1); TOT PROT 5.3 g/dl (6.4-8.2)
[2023-04-13] MEDS: ATORVASTATIN CA 80 MG TABLET (FP) NGT SCH (21:51)
[2023-04-14] MEDS: PIPERACILLIN/TAZOB 3.375 GM 3.375 GM in DEXTROSE 5%-WATER - 50 ML IVPB SCH ×3 (01:22→17:01)
[2023-04-14] MEDS: INSULIN SLIDING SCALE (NOVOLOG) 1 VIAL SQ SCH ×4 (06:50→21:39)
[2023-04-14] MEDS: SODIUM CHLORIDE 0.45% 1,000 ML IV SCH ×2 (07:01→17:01)
[2023-04-14] MEDS: AMINO ACIDS/PROTEIN HYDROLYS 30 ML LIQUID.PKT PO SCH ×2 (07:46→16:58)
[2023-04-14] MEDS: PARoxetine HCL 20 MG TABLET PO SCH (09:51)
[2023-04-14] MEDS: ASPIRIN 81 MG CHEWABLE TABLETS PO SCH (09:51)
[2023-04-14] MEDS: PANTOPRAZOLE SODIUM 40 MG VIAL IVPUSH SCH ×2 (09:51→21:55)
[2023-04-14] MEDS: METOPROLOL TARTRATE 25 MG TABLET (FP) NGT SCH ×2 (09:51→21:37)
[2023-04-14] MEDS: COLLAGENASE CLOSTRIDIUM HIST. 30 GRAMS TUBE TP SCH (09:52)
[2023-04-14 16:07] LABS: ATYPICAL pANCA <1:20 titer (Neg:<1:20); C-ANCA <1:20 titer (Neg:<1:20)
[2023-04-14] MEDS: ATORVASTATIN CA 80 MG TABLET (FP) NGT SCH (21:37)
[2023-04-14] MEDS: AMINO ACIDS 4.25%/D5W 1,000 ML IV SCH (21:54)
[2023-04-15] MEDS: PIPERACILLIN/TAZOB 3.375 GM 3.375 GM in DEXTROSE 5%-WATER - 50 ML IVPB SCH ×3 (02:25→17:56)
[2023-04-15] MEDS: AMINO ACIDS 4.25%/D5W 1,000 ML IV SCH (06:18)
[2023-04-15] MEDS: INSULIN SLIDING SCALE (NOVOLOG) 1 VIAL SQ SCH ×4 (06:20→23:38)
[2023-04-15] MEDS: AMINO ACIDS/PROTEIN HYDROLYS 30 ML LIQUID.PKT PO SCH ×3 (08:35→16:41)
[2023-04-15] MEDS: METOPROLOL TARTRATE 25 MG TABLET (FP) NGT SCH ×2 (09:38→21:26)
[2023-04-15] MEDS: PARoxetine HCL 20 MG TABLET PO SCH (09:38)
[2023-04-15] MEDS: ASPIRIN 81 MG CHEWABLE TABLETS PO SCH (09:38)
[2023-04-15 09:39] LABS: INR 2.21 (0.83-1.09); PROTHROMBIN TIME (PATIENT) 25.4 SEC (9.7-13.0)
[2023-04-15] MEDS: PANTOPRAZOLE SODIUM 40 MG VIAL IVPUSH SCH ×2 (09:49→21:25)
[2023-04-15 09:56] LABS: BASO % 0.2 % (0-2.0); EOS % 1.2 % (0-4.5); HEMATOCRIT 25.1 % (32.4-45.2); HEMOGLOBIN 8.4 GM/dL (10.7-15.3); LYMPH % 5.5 % (8-40); MCH 28.2 pg (25.7-33.7); MCHC 33.3 g/dl (32.0-36.0); MEAN CELL VOLUME 84.8 fl (80-96); MEAN PLT VOLUME 6.5 fl (7.5-11.1); MONO % 6.7 % (3.8-10.2); NEUT % 86.4 % (42.8-82.8); PLATELET COUNT 190 10^3/uL (134-434); RBC 2.96 M/mm3 (3.60-5.2); RDW 20.7 % (11.6-15.6); WHITE BLOOD COUNT 7.3 K/mm3 (4.0-10.0)
[2023-04-15 10:31] LABS: CHLORIDE 107 mmol/L (98-107); SODIUM 139 mmol/L (136-145)
[2023-04-15 10:35] LABS: ALBUMIN 1.7 g/dl (3.4-5.0); BLOOD UREA NITROGEN 20.8 mg/dL (7-18); CO2 23 mmol/L (21-32); GLUCOSE,RANDOM 158 mg/dL (74-106)
[2023-04-15 10:37] LABS: SGOT/AST 45 U/L (15-37); SGPT/ALT 18 U/L (13-61)
[2023-04-15 10:38] LABS: BILIRUBIN,TOTAL 0.3 mg/dL (0.2-1); TOT PROT 5.1 g/dl (6.4-8.2)
[2023-04-15 10:41] LABS: ALK PHOS 91 U/L (45-117)
[2023-04-15 10:44] LABS: ANION GAP 9 MMOL/L (8-16); CALCIUM 6.9 mg/dL (8.5-10.1); POTASSIUM 2.6 mmol/L (3.5-5.1)
[2023-04-15] MEDS ORDERED: CALCIUM GLUC IN NACL, ISO-OSM 1 GM/50 ML BAG IVPB ONE ×2 (11:00→14:45)
[2023-04-15 11:01] LABS: ANISOCYTOSIS 2+; MACROCYTOSIS 1+
[2023-04-15] MEDS: KCL 10 MEQ IVPB 10 MEQ/100 ML INFUS.BAG IVPB SCH ×3 (12:00→14:05)
[2023-04-15] MEDS: COLLAGENASE CLOSTRIDIUM HIST. 30 GRAMS TUBE TP SCH (12:06)
[2023-04-15] MEDS ORDERED: MAGNESIUM SULF 50% (8.12 MEQ/2 ML-1 GM VIAL) IVPB ONE ×2 (13:52→20:00)
[2023-04-15] MEDS ORDERED: POTASSIUM CHLORIDE ORAL LIQUID 20 MEQ/15 ML PO ONE (14:04)
[2023-04-15] MEDS ORDERED: PHYTONADIONE 10 MG/1 ML AMP IVPB ONE (15:30)
[2023-04-15] MEDS ORDERED: BISACODYL 5 MG TABLET.DR (FP) PO ONE (16:00)
[2023-04-15] MEDS ORDERED: POLYETHYLENE GLYCOL 3350 255 GM BTL PO ONE (17:00)
[2023-04-15] MEDS: POTASSIUM CHLORIDE 40 MEQ in AMINO ACIDS 4.25%/D5W 1,000 ML IV SCH (18:00)
[2023-04-15] MEDS: ATORVASTATIN CA 80 MG TABLET (FP) NGT SCH (21:25)
[2023-04-16] MEDS: POTASSIUM CHLORIDE 40 MEQ in AMINO ACIDS 4.25%/D5W 1,000 ML IV SCH ×2 (00:46→13:20)
[2023-04-16] MEDS: PIPERACILLIN/TAZOB 3.375 GM 3.375 GM in DEXTROSE 5%-WATER - 50 ML IVPB SCH ×3 (02:49→17:02)
[2023-04-16] MEDS: INSULIN SLIDING SCALE (NOVOLOG) 1 VIAL SQ SCH ×4 (06:09→21:27)
[2023-04-16] MEDS: AMINO ACIDS/PROTEIN HYDROLYS 30 ML LIQUID.PKT PO SCH ×3 (08:00→18:21)
[2023-04-16 08:17] LABS: INR 1.3 (0.83-1.09)
[2023-04-16 08:23] LABS: HEMATOCRIT 26.8 % (32.4-45.2); HEMOGLOBIN 8.8 GM/dL (10.7-15.3); MCH 27.8 pg (25.7-33.7); MCHC 32.8 g/dl (32.0-36.0); MEAN CELL VOLUME 84.8 fl (80-96); MEAN PLT VOLUME 6.5 fl (7.5-11.1); PLATELET COUNT 233 10^3/uL (134-434); RBC 3.16 M/mm3 (3.60-5.2); RDW 20.5 % (11.6-15.6); WHITE BLOOD COUNT 9.7 K/mm3 (4.0-10.0)
[2023-04-16 08:41] LABS: CHLORIDE 107 mmol/L (98-107); SODIUM 141 mmol/L (136-145)
[2023-04-16 08:52] LABS: CALCIUM 7.5 mg/dL (8.5-10.1); CO2 23 mmol/L (21-32); GLUCOSE,RANDOM 110 mg/dL (74-106)
[2023-04-16 08:53] LABS: MAGNESIUM 1.9 mg/dL (1.8-2.4)
[2023-04-16 08:56] LABS: CREATININE 0.8 mg/dL (0.55-1.3); PHOSPHOROUS 1.4 mg/dL (2.5-4.9)
[2023-04-16 09:01] LABS: ANION GAP 10 MMOL/L (8-16); POTASSIUM 2.8 mmol/L (3.5-5.1)
[2023-04-16] MEDS: PANTOPRAZOLE SODIUM 40 MG VIAL IVPUSH SCH ×2 (09:51→21:25)
[2023-04-16] MEDS: ASPIRIN 81 MG CHEWABLE TABLETS PO SCH (09:55)
[2023-04-16] MEDS: METOPROLOL TARTRATE 25 MG TABLET (FP) NGT SCH ×2 (09:55→21:25)
[2023-04-16] MEDS: PARoxetine HCL 20 MG TABLET PO SCH (09:55)
[2023-04-16] MEDS: COLLAGENASE CLOSTRIDIUM HIST. 30 GRAMS TUBE TP SCH (10:20)
[2023-04-16] MEDS: KCL 10 MEQ IVPB 10 MEQ/100 ML INFUS.BAG IVPB SCH ×4 (10:40→17:07)
[2023-04-16] MEDS ORDERED: POTASSIUM PHOSPHATE 30 MM in SODIUM CHLORIDE 500 ML IVPB ONE (11:30)
[2023-04-16 13:20] LABS: POTASSIUM 3.1 mmol/L (3.5-5.1)
[2023-04-16 13:21] LABS: CALCIUM 7.3 mg/dL (8.5-10.1)
[2023-04-16 13:22] LABS: BLOOD UREA NITROGEN 18.7 mg/dL (7-18)
[2023-04-16 13:25] LABS: CREATININE 0.8 mg/dL (0.55-1.3)
[2023-04-16] MEDS ORDERED: POTASSIUM CHLORIDE ORAL LIQUID 20 MEQ/15 ML PO ONE (13:30)
[2023-04-16] MEDS: NAPH,MB-DB/K PH,MBDB POWDER PACKET PO SCH ×2 (13:36→21:25)
[2023-04-16] MEDS ORDERED: INSULIN (NOVOLOG) ASPART 100 UNITS/ML 10ML VIAL ONE (21:17)
[2023-04-16] MEDS: ATORVASTATIN CA 80 MG TABLET (FP) NGT SCH (21:25)
[2023-04-17] MEDS: POTASSIUM CHLORIDE 40 MEQ in AMINO ACIDS 4.25%/D5W 1,000 ML IV SCH ×2 (00:26→11:49)
[2023-04-17] MEDS: PIPERACILLIN/TAZOB 3.375 GM 3.375 GM in DEXTROSE 5%-WATER - 50 ML IVPB SCH ×3 (01:07→17:22)
[2023-04-17] MEDS: METOPROLOL TARTRATE 25 MG TABLET (FP) NGT SCH ×4 (03:47→23:06)
[2023-04-17] MEDS: NAPH,MB-DB/K PH,MBDB POWDER PACKET PO SCH (03:50)
[2023-04-17] MEDS: ATORVASTATIN CA 80 MG TABLET (FP) NGT SCH ×2 (03:50→23:06)
[2023-04-17] MEDS: INSULIN SLIDING SCALE (NOVOLOG) 1 VIAL SQ SCH ×4 (06:22→23:20)
[2023-04-17] MEDS ORDERED: PHENYLEPHRINE HCL 10 MG/1 ML SINGLE DOSE VIAL ONE (07:38)
[2023-04-17] MEDS ORDERED: PROPOFOL 40 ML ONE (07:38)
[2023-04-17] MEDS ORDERED: SUCCINYLCHOLINE CHLORIDE 200 MG/10 ML SYRINGE ONE (07:38)
[2023-04-17] MEDS ORDERED: ROCURONIUM BROMIDE 50 MG/5 ML SYRINGE ONE (07:39)
[2023-04-17] MEDS ORDERED: DEXMEDETOMIDINE HCL 200 MCG/2 ML IVPB ONE (08:04)
[2023-04-17] MEDS ORDERED: ACETAMINOPHEN INJECTION 100 ML IVPB ONE (08:04)
[2023-04-17] MEDS ORDERED: MIDAZOLAM HCL 2 MG/2 ML SINGLE DOSE VIAL ONE (08:08)
[2023-04-17] MEDS ORDERED: LIDOCAINE HCL 1%, 10 MG/ML (20ML VIAL) INF ONE (08:31)
[2023-04-17] MEDS: AMINO ACIDS/PROTEIN HYDROLYS 30 ML LIQUID.PKT PO SCH ×3 (08:36→16:48)
[2023-04-17] MEDS ORDERED: NAPH,MB-DB/K PH,MBDB POWDER PACKET PO SCH (10:00)
[2023-04-17] MEDS: ASPIRIN 81 MG CHEWABLE TABLETS PO SCH (10:27)
[2023-04-17] MEDS: PARoxetine HCL 20 MG TABLET PO SCH (10:27)
[2023-04-17] MEDS: PANTOPRAZOLE SODIUM 40 MG VIAL IVPUSH SCH ×2 (10:28→23:06)
[2023-04-17] MEDS: COLLAGENASE CLOSTRIDIUM HIST. 30 GRAMS TUBE TP SCH (10:40)
[2023-04-17 17:50] LABS: HEMATOCRIT 23.3 % (32.4-45.2); HEMOGLOBIN 7.5 GM/dL (10.7-15.3); MCHC 32.3 g/dl (32.0-36.0); MEAN CELL VOLUME 86.7 fl (80-96); RBC 2.68 M/mm3 (3.60-5.2); RDW 20.8 % (11.6-15.6); WHITE BLOOD COUNT 8.1 K/mm3 (4.0-10.0)
[2023-04-17 17:52] LABS: CHLORIDE 109 mmol/L (98-107); POTASSIUM 3.3 mmol/L (3.5-5.1); SODIUM 140 mmol/L (136-145)
[2023-04-17 17:54] LABS: ALBUMIN 1.5 g/dl (3.4-5.0); ANION GAP 7 MMOL/L (8-16); BLOOD UREA NITROGEN 14.3 mg/dL (7-18); CO2 24 mmol/L (21-32); GLUCOSE,RANDOM 122 mg/dL (74-106); MAGNESIUM 1.1 mg/dL (1.8-2.4)
[2023-04-17 17:57] LABS: CREATININE 0.6 mg/dL (0.55-1.3); SGOT/AST 34 U/L (15-37); SGPT/ALT 15 U/L (13-61)
[2023-04-17 17:59] LABS: BILIRUBIN,TOTAL 0.4 mg/dL (0.2-1); TOT PROT 4.8 g/dl (6.4-8.2)
[2023-04-17 18:00] LABS: ALK PHOS 84 U/L (45-117)
[2023-04-17 18:01] LABS: CALCIUM 6.7 mg/dL (8.5-10.1)
[2023-04-17 18:17] LABS: MEAN PLT VOLUME 6.9 fl (7.5-11.1); PLATELET COUNT 192 10^3/uL (134-434)
[2023-04-17] MEDS ORDERED: CALCIUM CHLORIDE 1 GM/10 ML *DISP.SYRIN IVPB ONE (20:40)
[2023-04-17] MEDS ORDERED: CALCIUM GLUCONATE IN NACL, 1,000 MG/100 ML BAG IVPB ONE (20:44)
[2023-04-17] MEDS ORDERED: CALCIUM GLUCONATE IN NACL 1 GM/50 ML BAG IVPB ONE ×2 (21:00→23:15)
[2023-04-18] MEDS: POTASSIUM CHLORIDE 40 MEQ in AMINO ACIDS 4.25%/D5W 1,000 ML IV SCH ×3 (00:45→11:55)
[2023-04-18] MEDS: ATORVASTATIN CA 80 MG TABLET (FP) NGT SCH ×3 (00:49→21:55)
[2023-04-18] MEDS: METOPROLOL TARTRATE 25 MG TABLET (FP) NGT SCH ×5 (00:50→21:53)
[2023-04-18] MEDS: PIPERACILLIN/TAZOB 3.375 GM 3.375 GM in DEXTROSE 5%-WATER - 50 ML IVPB SCH ×3 (01:08→17:31)
[2023-04-18] MEDS: INSULIN SLIDING SCALE (NOVOLOG) 1 VIAL SQ SCH ×4 (06:13→21:50)
[2023-04-18] MEDS: AMINO ACIDS/PROTEIN HYDROLYS 30 ML LIQUID.PKT PO SCH ×3 (08:56→17:31)
[2023-04-18] MEDS: ASPIRIN 81 MG CHEWABLE TABLETS PO SCH ×2 (09:46→09:57)
[2023-04-18] MEDS: PARoxetine HCL 20 MG TABLET PO SCH ×2 (09:47→09:56)
[2023-04-18] MEDS: PANTOPRAZOLE SODIUM 40 MG VIAL IVPUSH SCH ×2 (09:48→21:49)
[2023-04-18] MEDS: COLLAGENASE CLOSTRIDIUM HIST. 30 GRAMS TUBE TP SCH (09:51)
[2023-04-18 11:50] LABS: BASO % 0.9 % (0-2.0); EOS % 1.5 % (0-4.5); HEMATOCRIT 22.5 % (32.4-45.2); HEMOGLOBIN 7.5 GM/dL (10.7-15.3); LYMPH % 5.1 % (8-40); MCH 28.4 pg (25.7-33.7); MCHC 33.3 g/dl (32.0-36.0); MEAN CELL VOLUME 85.3 fl (80-96); MEAN PLT VOLUME 6.5 fl (7.5-11.1); MONO % 7.5 % (3.8-10.2); PLATELET COUNT 213 10^3/uL (134-434); RBC 2.64 M/mm3 (3.60-5.2); RDW 20.9 % (11.6-15.6); WHITE BLOOD COUNT 7.1 K/mm3 (4.0-10.0)
[2023-04-18 12:14] LABS: ANISOCYTOSIS 3+; MACROCYTOSIS 0; OVALOCYTE 1+
[2023-04-18 12:19] LABS: LDH 281 U/L (84-246)
[2023-04-18 12:25] LABS: CALCIUM 6.7 mg/dL (8.5-10.1)
[2023-04-18] MEDS: MAGNESIUM OXIDE 400 MG TABLET (FP) PO SCH ×3 (16:12→21:55)
[2023-04-18] MEDS ORDERED: INSULIN (NOVOLOG) ASPART 100 UNITS/ML 10ML VIAL ONE (21:36)
[2023-04-19] MEDS: PIPERACILLIN/TAZOB 3.375 GM 3.375 GM in DEXTROSE 5%-WATER - 50 ML IVPB SCH ×3 (01:13→17:31)
[2023-04-19] MEDS: POTASSIUM CHLORIDE 40 MEQ in AMINO ACIDS 4.25%/D5W 1,000 ML IV SCH ×3 (04:25→14:36)
[2023-04-19] MEDS: INSULIN SLIDING SCALE (NOVOLOG) 1 VIAL SQ SCH ×4 (06:19→23:17)
[2023-04-19 08:55] LABS: BASO % 0.6 % (0-2.0); EOS % 1.7 % (0-4.5); HEMATOCRIT 22.9 % (32.4-45.2); HEMOGLOBIN 7.5 GM/dL (10.7-15.3); LYMPH % 5.6 % (8-40); MCH 28.5 pg (25.7-33.7); MCHC 32.7 g/dl (32.0-36.0); MEAN CELL VOLUME 87.1 fl (80-96); MEAN PLT VOLUME 6.7 fl (7.5-11.1); MONO % 6.9 % (3.8-10.2); NEUT % 85.2 % (42.8-82.8); PLATELET COUNT 215 10^3/uL (134-434); RBC 2.62 M/mm3 (3.60-5.2); RDW 20.7 % (11.6-15.6); WHITE BLOOD COUNT 7.4 K/mm3 (4.0-10.0)
[2023-04-19] MEDS: AMINO ACIDS/PROTEIN HYDROLYS 30 ML LIQUID.PKT PO SCH ×3 (08:59→16:50)
[2023-04-19] MEDS: PANTOPRAZOLE SODIUM 40 MG VIAL IVPUSH SCH ×2 (09:04→23:07)
[2023-04-19 09:09] LABS: CHLORIDE 107 mmol/L (98-107); POTASSIUM 3.2 mmol/L (3.5-5.1); SODIUM 138 mmol/L (136-145)
[2023-04-19 09:12] LABS: ALBUMIN 1.6 g/dl (3.4-5.0); ANION GAP 8 MMOL/L (8-16); BLOOD UREA NITROGEN 15.3 mg/dL (7-18); CO2 24 mmol/L (21-32); GLUCOSE,RANDOM 129 mg/dL (74-106)
[2023-04-19] MEDS: ASPIRIN 81 MG CHEWABLE TABLETS PO SCH (09:13)
[2023-04-19] MEDS: MAGNESIUM OXIDE 400 MG TABLET (FP) PO SCH ×2 (09:13→23:14)
[2023-04-19] MEDS: PARoxetine HCL 20 MG TABLET PO SCH (09:13)
[2023-04-19] MEDS: COLLAGENASE CLOSTRIDIUM HIST. 30 GRAMS TUBE TP SCH (09:13)
[2023-04-19] MEDS: METOPROLOL TARTRATE 25 MG TABLET (FP) NGT SCH ×2 (09:13→23:14)
[2023-04-19 09:15] LABS: CREATININE 0.6 mg/dL (0.55-1.3); SGPT/ALT 15 U/L (13-61)
[2023-04-19 09:16] LABS: SGOT/AST 32 U/L (15-37)
[2023-04-19 09:17] LABS: BILIRUBIN,TOTAL 0.3 mg/dL (0.2-1); TOT PROT 4.6 g/dl (6.4-8.2)
[2023-04-19 09:18] LABS: ALK PHOS 84 U/L (45-117)
[2023-04-19 09:34] LABS: CALCIUM 6.5 mg/dL (8.5-10.1); MAGNESIUM 0.9 mg/dL (1.8-2.4)
[2023-04-19] MEDS: MAGNESIUM SULF 50% (8.12 MEQ/2 ML-1 GM VIAL) IVPB SCH ×2 (11:25→18:18)
[2023-04-19] MEDS: KCL 10 MEQ IVPB 10 MEQ/100 ML INFUS.BAG IVPB SCH ×3 (12:15→14:36)
[2023-04-19] MEDS: ATORVASTATIN CA 80 MG TABLET (FP) NGT SCH (23:14)
[2023-04-20] MEDS: PIPERACILLIN/TAZOB 3.375 GM 3.375 GM in DEXTROSE 5%-WATER - 50 ML IVPB SCH ×3 (01:25→18:57)
[2023-04-20] MEDS: POTASSIUM CHLORIDE 40 MEQ in AMINO ACIDS 4.25%/D5W 1,000 ML IV SCH ×2 (03:49→19:14)
[2023-04-20] MEDS: INSULIN SLIDING SCALE (NOVOLOG) 1 VIAL SQ SCH ×4 (06:50→23:38)
[2023-04-20] MEDS: AMINO ACIDS/PROTEIN HYDROLYS 30 ML LIQUID.PKT PO SCH ×3 (09:16→16:45)
[2023-04-20 09:21] LABS: BASO % 0.7 % (0-2.0); EOS % 2.1 % (0-4.5); HEMATOCRIT 22.8 % (32.4-45.2); HEMOGLOBIN 7.4 GM/dL (10.7-15.3); LYMPH % 6.1 % (8-40); MCH 28.3 pg (25.7-33.7); MCHC 32.7 g/dl (32.0-36.0); MEAN CELL VOLUME 86.5 fl (80-96); MEAN PLT VOLUME 6.7 fl (7.5-11.1); MONO % 6.4 % (3.8-10.2); NEUT % 84.7 % (42.8-82.8); PLATELET COUNT 213 10^3/uL (134-434); RBC 2.64 M/mm3 (3.60-5.2); RDW 20.8 % (11.6-15.6)
[2023-04-20 09:41] LABS: CHLORIDE 107 mmol/L (98-107); POTASSIUM 3.4 mmol/L (3.5-5.1); SODIUM 138 mmol/L (136-145)
[2023-04-20 09:51] LABS: ANION GAP 6 MMOL/L (8-16); BLOOD UREA NITROGEN 12.6 mg/dL (7-18); CO2 25 mmol/L (21-32)
[2023-04-20 09:52] LABS: ALBUMIN 1.5 g/dl (3.4-5.0); GLUCOSE,RANDOM 130 mg/dL (74-106)
[2023-04-20 09:54] LABS: MAGNESIUM 1.7 mg/dL (1.8-2.4)
[2023-04-20 09:55] LABS: CREATININE 0.5 mg/dL (0.55-1.3); PHOSPHOROUS 1.2 mg/dL (2.5-4.9); SGOT/AST 28 U/L (15-37); SGPT/ALT 16 U/L (13-61)
[2023-04-20 09:56] LABS: BILIRUBIN,TOTAL 0.3 mg/dL (0.2-1); TOT PROT 4.7 g/dl (6.4-8.2)
[2023-04-20 09:57] LABS: ALK PHOS 83 U/L (45-117)
[2023-04-20 10:02] LABS: CALCIUM 6.7 mg/dL (8.5-10.1)
[2023-04-20] MEDS: PANTOPRAZOLE SODIUM 40 MG VIAL IVPUSH SCH ×2 (11:24→21:51)
[2023-04-20] MEDS: ASPIRIN 81 MG CHEWABLE TABLETS PO SCH (11:32)
[2023-04-20] MEDS: MAGNESIUM OXIDE 400 MG TABLET (FP) PO SCH ×2 (11:33→21:51)
[2023-04-20] MEDS: METOPROLOL TARTRATE 25 MG TABLET (FP) NGT SCH ×2 (11:33→21:51)
[2023-04-20] MEDS: PARoxetine HCL 20 MG TABLET PO SCH (11:33)
[2023-04-20] MEDS: COLLAGENASE CLOSTRIDIUM HIST. 30 GRAMS TUBE TP SCH (11:34)
[2023-04-20] MEDS: MAGNESIUM SULF 50% (8.12 MEQ/2 ML-1 GM VIAL) IVPB SCH ×2 (13:26→21:51)
[2023-04-20] MEDS ORDERED: POTASSIUM PHOSPHATE 15 MM in SODIUM CHLORIDE 250 ML IVPB ONE (14:30)
[2023-04-20] MEDS: ATORVASTATIN CA 80 MG TABLET (FP) NGT SCH (21:51)
[2023-04-21] MEDS: PIPERACILLIN/TAZOB 3.375 GM 3.375 GM in DEXTROSE 5%-WATER - 50 ML IVPB SCH ×3 (02:22→17:21)
[2023-04-21] MEDS: INSULIN SLIDING SCALE (NOVOLOG) 1 VIAL SQ SCH ×4 (07:19→21:49)
[2023-04-21] MEDS: POTASSIUM CHLORIDE 40 MEQ in AMINO ACIDS 4.25%/D5W 1,000 ML IV SCH ×3 (08:42→22:15)
[2023-04-21] MEDS: AMINO ACIDS/PROTEIN HYDROLYS 30 ML LIQUID.PKT PO SCH ×3 (08:43→16:46)
[2023-04-21] MEDS: PANTOPRAZOLE SODIUM 40 MG VIAL IVPUSH SCH ×2 (09:49→21:49)
[2023-04-21] MEDS: COLLAGENASE CLOSTRIDIUM HIST. 30 GRAMS TUBE TP SCH (09:55)
[2023-04-21] MEDS: ASPIRIN 81 MG CHEWABLE TABLETS PO SCH (09:55)
[2023-04-21] MEDS: METOPROLOL TARTRATE 25 MG TABLET (FP) NGT SCH ×2 (09:55→21:49)
[2023-04-21] MEDS: PARoxetine HCL 20 MG TABLET PO SCH (09:55)
[2023-04-21] MEDS: MAGNESIUM OXIDE 400 MG TABLET (FP) PO SCH ×2 (09:55→21:49)
[2023-04-21] MEDS ORDERED: MAGNESIUM 1GM/D5W 100ML - 100 ML IVPB IVPB ONE (12:15)
[2023-04-21] MEDS ORDERED: NAPH,MB-DB/K PH,MBDB POWDER PACKET PO ONE (12:15)
[2023-04-21 16:08] LABS: FREE KAPPA,SERUM 34.9 mg/L (3.3-19.4)
[2023-04-21] MEDS ORDERED: INSULIN (NOVOLOG) ASPART 100 UNITS/ML 10ML VIAL ONE (21:34)
[2023-04-21] MEDS: ATORVASTATIN CA 80 MG TABLET (FP) NGT SCH (21:49)
[2023-04-22] MEDS: PIPERACILLIN/TAZOB 3.375 GM 3.375 GM in DEXTROSE 5%-WATER - 50 ML IVPB SCH ×3 (02:10→17:22)
[2023-04-22] MEDS: INSULIN SLIDING SCALE (NOVOLOG) 1 VIAL SQ SCH ×4 (06:58→21:57)
[2023-04-22] MEDS: AMINO ACIDS/PROTEIN HYDROLYS 30 ML LIQUID.PKT PO SCH ×3 (09:16→16:58)
[2023-04-22] MEDS: PANTOPRAZOLE SODIUM 40 MG VIAL IVPUSH SCH ×2 (10:13→21:51)
[2023-04-22] MEDS: PARoxetine HCL 20 MG TABLET PO SCH (10:16)
[2023-04-22] MEDS: MAGNESIUM OXIDE 400 MG TABLET (FP) PO SCH ×3 (10:16→21:59)
[2023-04-22] MEDS: COLLAGENASE CLOSTRIDIUM HIST. 30 GRAMS TUBE TP SCH (10:16)
[2023-04-22] MEDS: ASPIRIN 81 MG CHEWABLE TABLETS PO SCH (10:16)
[2023-04-22] MEDS: METOPROLOL TARTRATE 25 MG TABLET (FP) NGT SCH ×3 (10:16→21:59)
[2023-04-22 10:37] LABS: HEMATOCRIT 25.6 % (32.4-45.2); HEMOGLOBIN 8.4 GM/dL (10.7-15.3); MCH 28.4 pg (25.7-33.7); MCHC 32.8 g/dl (32.0-36.0); MEAN CELL VOLUME 86.6 fl (80-96); MEAN PLT VOLUME 6.2 fl (7.5-11.1); PLATELET COUNT 195 10^3/uL (134-434); RBC 2.95 M/mm3 (3.60-5.2); RDW 21.5 % (11.6-15.6); WHITE BLOOD COUNT 5.9 K/mm3 (4.0-10.0)
[2023-04-22 11:54] LABS: POTASSIUM 3.3 mmol/L (3.5-5.1)
[2023-04-22] MEDS: POTASSIUM CHLORIDE 40 MEQ in AMINO ACIDS 4.25%/D5W 1,000 ML IV SCH (12:05)
[2023-04-22 12:10] LABS: CALCIUM 7.6 mg/dL (8.5-10.1)
[2023-04-22 12:11] LABS: ALBUMIN 1.7 g/dl (3.4-5.0); BLOOD UREA NITROGEN 7.3 mg/dL (7-18); MAGNESIUM 1.7 mg/dL (1.8-2.4)
[2023-04-22 12:14] LABS: CREATININE 0.5 mg/dL (0.55-1.3); PHOSPHOROUS 2.2 mg/dL (2.5-4.9)
[2023-04-22 12:15] LABS: BILIRUBIN,TOTAL 0.3 mg/dL (0.2-1)
[2023-04-22 12:16] LABS: TOT PROT 5.2 g/dl (6.4-8.2)
[2023-04-22] MEDS ORDERED: POTASSIUM PHOSPHATE 30 MM in SODIUM CHLORIDE 500 ML IVPB ONE (14:14)
[2023-04-22] MEDS ORDERED: MAGNESIUM OXIDE 400 MG TABLET (FP) PO SCH (17:30)
[2023-04-22] MEDS ORDERED: MAGNESIUM 2GM/50ML STERILE WATER IVPB IVPB ONE (17:45)
[2023-04-22] MEDS: MAGNESIUM 2GM/50ML STERILE WATER IVPB IVPB ONE ×2 (17:47)
[2023-04-22] MEDS: ATORVASTATIN CA 80 MG TABLET (FP) NGT SCH ×2 (21:42→21:59)
[2023-04-23] MEDS ORDERED: PIPERACILLIN/TAZOBACTAM 3.375 GM VIAL IVPB ONE (02:00)
[2023-04-23] MEDS: PIPERACILLIN/TAZOB 3.375 GM 3.375 GM in DEXTROSE 5%-WATER - 50 ML IVPB SCH ×3 (02:08→18:49)
[2023-04-23] MEDS: POTASSIUM CHLORIDE 40 MEQ in AMINO ACIDS 4.25%/D5W 1,000 ML IV SCH ×2 (03:26→18:50)
[2023-04-23] MEDS: INSULIN SLIDING SCALE (NOVOLOG) 1 VIAL SQ SCH ×4 (06:23→23:18)
[2023-04-23] MEDS: PANTOPRAZOLE SODIUM 40 MG VIAL IVPUSH SCH ×2 (11:21→22:21)
[2023-04-23] MEDS: ASPIRIN 81 MG CHEWABLE TABLETS PO SCH (11:22)
[2023-04-23] MEDS: METOPROLOL TARTRATE 25 MG TABLET (FP) NGT SCH ×2 (11:22→23:07)
[2023-04-23] MEDS: MAGNESIUM OXIDE 400 MG TABLET (FP) PO SCH ×2 (11:22→23:07)
[2023-04-23] MEDS: AMINO ACIDS/PROTEIN HYDROLYS 30 ML LIQUID.PKT PO SCH ×3 (11:22→18:50)
[2023-04-23] MEDS: PARoxetine HCL 20 MG TABLET PO SCH (11:22)
[2023-04-23] MEDS: COLLAGENASE CLOSTRIDIUM HIST. 30 GRAMS TUBE TP SCH (11:23)
[2023-04-23] MEDS: ATORVASTATIN CA 80 MG TABLET (FP) NGT SCH (23:06)
[2023-04-24] MEDS: PIPERACILLIN/TAZOB 3.375 GM 3.375 GM in DEXTROSE 5%-WATER - 50 ML IVPB SCH ×3 (02:35→19:56)
[2023-04-24] MEDS: POTASSIUM CHLORIDE 40 MEQ in AMINO ACIDS 4.25%/D5W 1,000 ML IV SCH ×2 (06:22→21:28)
[2023-04-24] MEDS: INSULIN SLIDING SCALE (NOVOLOG) 1 VIAL SQ SCH ×4 (06:22→22:00)
[2023-04-24 09:19] LABS: POTASSIUM 3.3 mmol/L (3.5-5.1)
[2023-04-24 09:21] LABS: CALCIUM 7.5 mg/dL (8.5-10.1)
[2023-04-24 09:22] LABS: ALBUMIN 1.8 g/dl (3.4-5.0); BLOOD UREA NITROGEN 7.8 mg/dL (7-18); MAGNESIUM 1.4 mg/dL (1.8-2.4)
[2023-04-24 09:25] LABS: CREATININE 0.5 mg/dL (0.55-1.3)
[2023-04-24 09:26] LABS: BILIRUBIN,TOTAL 0.4 mg/dL (0.2-1)
[2023-04-24] MEDS ORDERED: MAGNESIUM SULF 50% (8.12 MEQ/2 ML-1 GM VIAL) IVPB ONE (09:26)
[2023-04-24 09:27] LABS: TOT PROT 5.4 g/dl (6.4-8.2)
[2023-04-24] MEDS ORDERED: KCL 10 MEQ IVPB 10 MEQ/100 ML INFUS.BAG IVPB SCH (09:30)
[2023-04-24] MEDS: MAGNESIUM OXIDE 400 MG TABLET (FP) PO SCH ×2 (11:51→21:59)
[2023-04-24] MEDS: AMINO ACIDS/PROTEIN HYDROLYS 30 ML LIQUID.PKT PO SCH ×2 (11:51→19:55)
[2023-04-24] MEDS: PANTOPRAZOLE SODIUM 40 MG VIAL IVPUSH SCH ×2 (11:52→21:27)
[2023-04-24] MEDS: METOPROLOL TARTRATE 25 MG TABLET (FP) NGT SCH ×2 (11:53→22:00)
[2023-04-24] MEDS: THIAMINE HCL 100 MG TABLET (FP) PO SCH (16:35)
[2023-04-24] MEDS: PARoxetine HCL 20 MG TABLET PO SCH (16:35)
[2023-04-24] MEDS: COLLAGENASE CLOSTRIDIUM HIST. 30 GRAMS TUBE TP SCH (16:36)
[2023-04-24] MEDS ORDERED: MAGNESIUM 2GM/50ML STERILE WATER IVPB IVPB ONE (18:00)
[2023-04-24] MEDS: ATORVASTATIN CA 80 MG TABLET (FP) NGT SCH (21:59)
[2023-04-25] MEDS: PIPERACILLIN/TAZOB 3.375 GM 3.375 GM in DEXTROSE 5%-WATER - 50 ML IVPB SCH ×3 (02:13→19:11)
[2023-04-25] MEDS: INSULIN SLIDING SCALE (NOVOLOG) 1 VIAL SQ SCH ×4 (06:52→23:45)
[2023-04-25 11:32] LABS: POTASSIUM 3.2 mmol/L (3.5-5.1)
[2023-04-25 11:39] LABS: CALCIUM 7.6 mg/dL (8.5-10.1)
[2023-04-25 11:40] LABS: ALBUMIN 1.9 g/dl (3.4-5.0); BLOOD UREA NITROGEN 5.8 mg/dL (7-18)
[2023-04-25 11:43] LABS: CREATININE 0.4 mg/dL (0.55-1.3); MAGNESIUM 1.5 mg/dL (1.8-2.4)
[2023-04-25 11:44] LABS: BILIRUBIN,TOTAL 0.4 mg/dL (0.2-1)
[2023-04-25 11:48] LABS: PHOSPHOROUS 2.9 mg/dL (2.5-4.9); TOT PROT 5.7 g/dl (6.4-8.2)
[2023-04-25] MEDS: PARoxetine HCL 20 MG TABLET PO SCH (13:29)
[2023-04-25] MEDS: METOPROLOL TARTRATE 25 MG TABLET (FP) NGT SCH ×2 (13:29→23:10)
[2023-04-25] MEDS: AMINO ACIDS/PROTEIN HYDROLYS 30 ML LIQUID.PKT NGT SCH ×2 (13:29→17:56)
[2023-04-25] MEDS ORDERED: MAGNESIUM 2GM/50ML STERILE WATER IVPB IVPB ONE (14:14)
[2023-04-25] MEDS: FAMOTIDINE 20 MG/2.5 ML ORAL LIQUID NGT SCH (14:18)
[2023-04-25] MEDS: KCL 10 MEQ IVPB 10 MEQ/100 ML INFUS.BAG IVPB SCH (16:52)
[2023-04-25] MEDS: PANTOPRAZOLE SODIUM 40 MG VIAL IVPUSH SCH (18:16)
[2023-04-25] MEDS: AMINO ACIDS/PROTEIN HYDROLYS 30 ML LIQUID.PKT PO SCH (18:16)
[2023-04-25] MEDS: POTASSIUM CHLORIDE 40 MEQ in AMINO ACIDS 4.25%/D5W 1,000 ML IV SCH (18:16)
[2023-04-25] MEDS: MAGNESIUM OXIDE 400 MG TABLET (FP) PO SCH (18:17)
[2023-04-25] MEDS: THIAMINE HCL 100 MG TABLET (FP) PO SCH (18:17)
[2023-04-25] MEDS: COLLAGENASE CLOSTRIDIUM HIST. 30 GRAMS TUBE TP SCH (18:30)
[2023-04-25] MEDS: POTASSIUM CHLORIDE ORAL LIQUID 20 MEQ/15 ML PO SCH ×2 (23:09→23:22)
[2023-04-25] MEDS: HEPARIN NA (PORCINE) 5,000 UNITS/ML 1ML VIAL SQ SCH (23:10)
[2023-04-25] MEDS: ATORVASTATIN CA 80 MG TABLET (FP) NGT SCH (23:10)
[2023-04-25] MEDS: MAGNESIUM OXIDE 400 MG TABLET (FP) NGT SCH (23:10)
[2023-04-25] MEDS ORDERED: POTASSIUM CHLORIDE ORAL LIQUID 20 MEQ/15 ML NGT SCH (23:23)
[2023-04-26] MEDS: PIPERACILLIN/TAZOB 3.375 GM 3.375 GM in DEXTROSE 5%-WATER - 50 ML IVPB SCH ×4 (02:53→19:15)
[2023-04-26] MEDS: INSULIN SLIDING SCALE (NOVOLOG) 1 VIAL SQ SCH ×4 (06:45→22:56)
[2023-04-26] MEDS: AMINO ACIDS/PROTEIN HYDROLYS 30 ML LIQUID.PKT NGT SCH ×3 (09:35→16:38)
[2023-04-26] MEDS: MAGNESIUM OXIDE 400 MG TABLET (FP) NGT SCH ×2 (09:36→22:22)
[2023-04-26] MEDS: HEPARIN NA (PORCINE) 5,000 UNITS/ML 1ML VIAL SQ SCH ×2 (09:36→22:22)
[2023-04-26] MEDS: METOPROLOL TARTRATE 25 MG TABLET (FP) NGT SCH ×2 (09:36→22:22)
[2023-04-26] MEDS: PARoxetine HCL 20 MG TABLET PO SCH (09:36)
[2023-04-26] MEDS: COLLAGENASE CLOSTRIDIUM HIST. 30 GRAMS TUBE TP SCH (09:39)
[2023-04-26] MEDS: FAMOTIDINE 20 MG/2.5 ML ORAL LIQUID NGT SCH (09:42)
[2023-04-26 10:07] LABS: POTASSIUM 3.4 mmol/L (3.5-5.1)
[2023-04-26 10:09] LABS: CALCIUM 7.6 mg/dL (8.5-10.1)
[2023-04-26 10:10] LABS: ALBUMIN 1.8 g/dl (3.4-5.0); BLOOD UREA NITROGEN 10.6 mg/dL (7-18); MAGNESIUM 1.4 mg/dL (1.8-2.4)
[2023-04-26 10:13] LABS: CREATININE 0.6 mg/dL (0.55-1.3)
[2023-04-26 10:14] LABS: BILIRUBIN,TOTAL 0.3 mg/dL (0.2-1); TOT PROT 5.5 g/dl (6.4-8.2)
[2023-04-26] MEDS ORDERED: INSULIN (NOVOLOG) ASPART 100 UNITS/ML 10ML VIAL ONE (12:03)
[2023-04-26] MEDS: ATORVASTATIN CA 80 MG TABLET (FP) NGT SCH (22:22)
[2023-04-27] MEDS: PIPERACILLIN/TAZOB 3.375 GM 3.375 GM in DEXTROSE 5%-WATER - 50 ML IVPB SCH ×3 (02:14→17:26)
[2023-04-27] MEDS: INSULIN SLIDING SCALE (NOVOLOG) 1 VIAL SQ SCH ×4 (06:25→22:13)
[2023-04-27] MEDS: AMINO ACIDS/PROTEIN HYDROLYS 30 ML LIQUID.PKT NGT SCH ×3 (08:58→17:24)
[2023-04-27] MEDS: PARoxetine HCL 20 MG TABLET PO SCH (10:59)
[2023-04-27] MEDS: METOPROLOL TARTRATE 25 MG TABLET (FP) NGT SCH ×2 (10:59→23:01)
[2023-04-27] MEDS: MAGNESIUM OXIDE 400 MG TABLET (FP) NGT SCH ×2 (10:59→23:01)
[2023-04-27] MEDS: HEPARIN NA (PORCINE) 5,000 UNITS/ML 1ML VIAL SQ SCH ×2 (10:59→23:00)
[2023-04-27] MEDS: COLLAGENASE CLOSTRIDIUM HIST. 30 GRAMS TUBE TP SCH (11:00)
[2023-04-27] MEDS ORDERED: INSULIN (NOVOLOG) ASPART 100 UNITS/ML 10ML VIAL ONE ×2 (11:41→16:58)
[2023-04-27] MEDS: FAMOTIDINE 20 MG/2.5 ML ORAL LIQUID NGT SCH (12:17)
[2023-04-27] MEDS: ATORVASTATIN CA 80 MG TABLET (FP) NGT SCH (23:00)
[2023-04-28] MEDS: PIPERACILLIN/TAZOB 3.375 GM 3.375 GM in DEXTROSE 5%-WATER - 50 ML IVPB SCH ×3 (02:41→17:53)
[2023-04-28] MEDS: INSULIN SLIDING SCALE (NOVOLOG) 1 VIAL SQ SCH ×4 (06:19→22:33)
[2023-04-28] MEDS: AMINO ACIDS/PROTEIN HYDROLYS 30 ML LIQUID.PKT NGT SCH ×3 (09:00→17:55)
[2023-04-28] MEDS: COLLAGENASE CLOSTRIDIUM HIST. 30 GRAMS TUBE TP SCH (11:00)
[2023-04-28] MEDS: HEPARIN NA (PORCINE) 5,000 UNITS/ML 1ML VIAL SQ SCH ×2 (11:24→22:10)
[2023-04-28] MEDS ORDERED: GLUCAGON 1 MG KIT ONE (11:31)
[2023-04-28] MEDS ORDERED: FENTANYL CITRATE/PF 50 MCG/ML VIAL ONE (11:31)
[2023-04-28] MEDS ORDERED: MIDAZOLAM HCL 2 MG/2 ML SINGLE DOSE VIAL ONE (11:31)
[2023-04-28] MEDS ORDERED: SODIUM CHLORIDE 1,000 ML IV SCH (12:17)
[2023-04-28] MEDS ORDERED: MIDAZOLAM HCL 2 MG/2 ML SINGLE DOSE VIAL IVPUSH ONE (12:19)
[2023-04-28] MEDS ORDERED: GLUCAGON 1 MG KIT IVPUSH ONE (13:15)
[2023-04-28] MEDS: PARoxetine HCL 20 MG TABLET PO SCH (13:26)
[2023-04-28] MEDS: METOPROLOL TARTRATE 25 MG TABLET (FP) NGT SCH ×2 (13:26→22:10)
[2023-04-28] MEDS: MAGNESIUM OXIDE 400 MG TABLET (FP) NGT SCH ×2 (13:27→22:10)
[2023-04-28] MEDS: FAMOTIDINE 20 MG/2.5 ML ORAL LIQUID NGT SCH (13:27)
[2023-04-28] MEDS ORDERED: INSULIN (NOVOLOG) ASPART 100 UNITS/ML 10ML VIAL ONE (18:15)
[2023-04-28] MEDS: ATORVASTATIN CA 80 MG TABLET (FP) NGT SCH (22:10)
[2023-04-29] MEDS: PIPERACILLIN/TAZOB 3.375 GM 3.375 GM in DEXTROSE 5%-WATER - 50 ML IVPB SCH ×3 (01:02→10:10)
[2023-04-29] MEDS: INSULIN SLIDING SCALE (NOVOLOG) 1 VIAL SQ SCH ×4 (06:52→22:30)
[2023-04-29 10:23] LABS: HEMATOCRIT 24.5 % (32.4-45.2); HEMOGLOBIN 7.8 GM/dL (10.7-15.3); MCH 28.3 pg (25.7-33.7); MEAN CELL VOLUME 88.4 fl (80-96); MEAN PLT VOLUME 7.2 fl (7.5-11.1); RBC 2.78 M/mm3 (3.60-5.2); RDW 20.5 % (11.6-15.6); WHITE BLOOD COUNT 5.9 K/mm3 (4.0-10.0)
[2023-04-29] MEDS: AMINO ACIDS/PROTEIN HYDROLYS 30 ML LIQUID.PKT NGT SCH ×3 (10:23→17:50)
[2023-04-29] MEDS: HEPARIN NA (PORCINE) 5,000 UNITS/ML 1ML VIAL SQ SCH ×2 (10:24→21:26)
[2023-04-29 10:55] LABS: POTASSIUM 3.8 mmol/L (3.5-5.1)
[2023-04-29 10:59] LABS: PLATELET COUNT 264 10^3/uL (134-434)
[2023-04-29 11:21] LABS: BLOOD UREA NITROGEN 12.5 mg/dL (7-18)
[2023-04-29 11:22] LABS: ALBUMIN 1.7 g/dl (3.4-5.0); BILIRUBIN,TOTAL 0.4 mg/dL (0.2-1); CALCIUM 7.9 mg/dL (8.5-10.1)
[2023-04-29 11:23] LABS: CREATININE 0.4 mg/dL (0.55-1.3); MAGNESIUM 1.6 mg/dL (1.8-2.4); TOT PROT 5.4 g/dl (6.4-8.2)
[2023-04-29] MEDS: COLLAGENASE CLOSTRIDIUM HIST. 30 GRAMS TUBE TP SCH (12:17)
[2023-04-29] MEDS: MAGNESIUM OXIDE 400 MG TABLET (FP) NGT SCH (16:35)
[2023-04-29] MEDS: PARoxetine HCL 20 MG TABLET PO SCH (16:35)
[2023-04-29] MEDS: METOPROLOL TARTRATE 25 MG TABLET (FP) NGT SCH (16:35)
[2023-04-29] MEDS: FAMOTIDINE 20 MG/2.5 ML ORAL LIQUID NGT SCH (16:36)
[2023-04-29] MEDS: MAGNESIUM OXIDE 400 MG TABLET (FP) GT SCH (21:26)
[2023-04-29] MEDS: ATORVASTATIN CA 80 MG TABLET (FP) GT SCH (21:26)
[2023-04-29] MEDS: METOPROLOL TARTRATE 25 MG TABLET (FP) GT SCH (21:26)
[2023-04-30] MEDS: INSULIN SLIDING SCALE (NOVOLOG) 1 VIAL SQ SCH ×4 (07:34→22:04)
[2023-04-30] MEDS ORDERED: AMINO ACIDS/PROTEIN HYDROLYS 30 ML LIQUID.PKT GT SCH (08:00)
[2023-04-30] MEDS ORDERED: TICAGRELOR 90 MG TABLET PO SCH (10:00)
[2023-04-30] MEDS ORDERED: ASPIRIN 81 MG CHEWABLE TABLETS PO SCH (10:00)
[2023-04-30] MEDS: TICAGRELOR 90 MG TABLET PO SCH ×2 (10:24→21:45)
[2023-04-30] MEDS: PARoxetine HCL 20 MG TABLET PO SCH (10:25)
[2023-04-30] MEDS: HEPARIN NA (PORCINE) 5,000 UNITS/ML 1ML VIAL SQ SCH ×2 (10:25→21:45)
[2023-04-30] MEDS: METOPROLOL TARTRATE 25 MG TABLET (FP) GT SCH ×2 (10:25→21:44)
[2023-04-30] MEDS: MAGNESIUM OXIDE 400 MG TABLET (FP) GT SCH ×2 (10:25→21:44)
[2023-04-30] MEDS: FAMOTIDINE 20 MG/2.5 ML ORAL LIQUID GT SCH (10:28)
[2023-04-30] MEDS: COLLAGENASE CLOSTRIDIUM HIST. 30 GRAMS TUBE TP SCH (10:28)
[2023-04-30] MEDS ORDERED: INSULIN (NOVOLOG) ASPART 100 UNITS/ML 10ML VIAL ONE ×2 (11:28→17:16)
[2023-04-30 12:37] LABS: BASO % 0.9 % (0-2.0); EOS % 3.2 % (0-4.5); HEMATOCRIT 23.5 % (32.4-45.2); HEMOGLOBIN 7.7 GM/dL (10.7-15.3); LYMPH % 10.6 % (8-40); MCH 28.8 pg (25.7-33.7); MCHC 32.6 g/dl (32.0-36.0); MEAN CELL VOLUME 88.3 fl (80-96); MEAN PLT VOLUME 6.8 fl (7.5-11.1); MONO % 10.3 % (3.8-10.2); PLATELET COUNT 314 10^3/uL (134-434); RBC 2.66 M/mm3 (3.60-5.2); RDW 20.3 % (11.6-15.6); WHITE BLOOD COUNT 6.9 K/mm3 (4.0-10.0)
[2023-04-30 12:39] LABS: BASO % 0.5 % (0-2.0); HEMATOCRIT 23.5 % (32.4-45.2); HEMOGLOBIN 7.6 GM/dL (10.7-15.3); LYMPH % 9.7 % (8-40); MCH 28.6 pg (25.7-33.7); MCHC 32.4 g/dl (32.0-36.0); MEAN CELL VOLUME 88.1 fl (80-96); MEAN PLT VOLUME 6.9 fl (7.5-11.1); MONO % 10.6 % (3.8-10.2); NEUT % 76.2 % (42.8-82.8); PLATELET COUNT 318 10^3/uL (134-434); RBC 2.67 M/mm3 (3.60-5.2); RDW 20.3 % (11.6-15.6); WHITE BLOOD COUNT 6.7 K/mm3 (4.0-10.0)
[2023-04-30] MEDS ORDERED: FUROSEMIDE 40 MG/4 ML INJECTABLE VIAL IVPUSH SCH ×2 (14:14→22:00)
[2023-04-30] MEDS: ATORVASTATIN CA 80 MG TABLET (FP) GT SCH (21:44)
[2023-05-01] MEDS: INSULIN SLIDING SCALE (NOVOLOG) 1 VIAL SQ SCH ×4 (06:28→22:33)
[2023-05-01 10:15] LABS: BASO % 0.6 % (0-2.0); EOS % 1.8 % (0-4.5); HEMATOCRIT 27.8 % (32.4-45.2); HEMOGLOBIN 8.9 GM/dL (10.7-15.3); LYMPH % 10.3 % (8-40); MCH 28.1 pg (25.7-33.7); MCHC 32.1 g/dl (32.0-36.0); MEAN CELL VOLUME 87.4 fl (80-96); MEAN PLT VOLUME 6.8 fl (7.5-11.1); MONO % 11.6 % (3.8-10.2); NEUT % 75.7 % (42.8-82.8); PLATELET COUNT 344 10^3/uL (134-434); RBC 3.19 M/mm3 (3.60-5.2); RDW 18.6 % (11.6-15.6); WHITE BLOOD COUNT 8.6 K/mm3 (4.0-10.0)
[2023-05-01] MEDS: PARoxetine HCL 20 MG TABLET PO SCH (10:21)
[2023-05-01] MEDS: ASCORBIC ACID 500 MG TABLET (FP) PO SCH (10:21)
[2023-05-01] MEDS: ZINC SULFATE 220 MG CAPSULE (FP) PO SCH (10:21)
[2023-05-01] MEDS: METOPROLOL TARTRATE 25 MG TABLET (FP) GT SCH ×2 (10:22→22:14)
[2023-05-01] MEDS: MAGNESIUM OXIDE 400 MG TABLET (FP) GT SCH ×2 (10:22→22:14)
[2023-05-01] MEDS: HEPARIN NA (PORCINE) 5,000 UNITS/ML 1ML VIAL SQ SCH ×2 (10:22→22:14)
[2023-05-01] MEDS: ASPIRIN 81 MG CHEWABLE TABLETS PEG SCH (10:22)
[2023-05-01] MEDS: FAMOTIDINE 20 MG/2.5 ML ORAL LIQUID GT SCH (10:23)
[2023-05-01] MEDS: TICAGRELOR 90 MG TABLET PO SCH ×2 (10:24→22:14)
[2023-05-01] MEDS: COLLAGENASE CLOSTRIDIUM HIST. 30 GRAMS TUBE TP SCH (10:24)
[2023-05-01] MEDS: AMINO ACIDS/PROTEIN HYDROLYS 30 ML LIQUID.PKT GT SCH (10:27)
[2023-05-01 10:32] LABS: POTASSIUM 3.2 mmol/L (3.5-5.1)
[2023-05-01 10:37] LABS: ALBUMIN 1.7 g/dl (3.4-5.0); CALCIUM 7.6 mg/dL (8.5-10.1); MAGNESIUM 1.8 mg/dL (1.8-2.4)
[2023-05-01 10:38] LABS: BLOOD UREA NITROGEN 15.6 mg/dL (7-18)
[2023-05-01 10:40] LABS: CREATININE 0.5 mg/dL (0.55-1.3)
[2023-05-01 10:42] LABS: BILIRUBIN,TOTAL 0.5 mg/dL (0.2-1); TOT PROT 5.4 g/dl (6.4-8.2)
[2023-05-01] MEDS ORDERED: INSULIN (NOVOLOG) ASPART 100 UNITS/ML 10ML VIAL ONE (11:58)
[2023-05-01] MEDS ORDERED: POTASSIUM CHLORIDE ORAL LIQUID 20 MEQ/15 ML PO ONE (15:42)
[2023-05-01] MEDS: ATORVASTATIN CA 80 MG TABLET (FP) GT SCH (22:14)
[2023-05-02] MEDS: INSULIN SLIDING SCALE (NOVOLOG) 1 VIAL SQ SCH ×3 (06:04→17:20)
[2023-05-02] MEDS: ASPIRIN 81 MG CHEWABLE TABLETS PEG SCH (10:29)
[2023-05-02] MEDS: AMINO ACIDS/PROTEIN HYDROLYS 30 ML LIQUID.PKT GT SCH (10:29)
[2023-05-02] MEDS: ZINC SULFATE 220 MG CAPSULE (FP) PO SCH (10:29)
[2023-05-02] MEDS: METOPROLOL TARTRATE 25 MG TABLET (FP) GT SCH (10:29)
[2023-05-02] MEDS: TICAGRELOR 90 MG TABLET PO SCH (10:30)
[2023-05-02] MEDS: HEPARIN NA (PORCINE) 5,000 UNITS/ML 1ML VIAL SQ SCH (10:30)
[2023-05-02] MEDS: PARoxetine HCL 20 MG TABLET PO SCH (10:30)
[2023-05-02] MEDS: MAGNESIUM OXIDE 400 MG TABLET (FP) GT SCH (10:30)
[2023-05-02] MEDS: ASCORBIC ACID 500 MG TABLET (FP) PO SCH (10:30)
[2023-05-02] MEDS: FAMOTIDINE 20 MG/2.5 ML ORAL LIQUID GT SCH (10:31)
[2023-05-02 10:35] LABS: POTASSIUM 3.9 mmol/L (3.5-5.1)
[2023-05-02 10:48] LABS: CALCIUM 7.9 mg/dL (8.5-10.1)
[2023-05-02 10:49] LABS: BLOOD UREA NITROGEN 16.4 mg/dL (7-18)
[2023-05-02 10:51] LABS: CREATININE 0.5 mg/dL (0.55-1.3)
[2023-05-02] MEDS: COLLAGENASE CLOSTRIDIUM HIST. 30 GRAMS TUBE TP SCH (12:28)
[2023-05-02 15:21] VITALS: BP 126/71; PULSE 92; RESP 18; TEMP 97.3
== END 2023-05-02 18:19 | DRG 871 ==
LOC: JER 10:19 → JERBED 15:29 → JICU 17:44 → J6S 04-09 16:17
PROVIDERS: ADMIT Internal Medicine; ATTEND Family Medicine
PROC: 5A1D70Z Performance of Urinary Filtration, Intermittent, Less than 6 Hours Per Day (ICD-10-PCS; 2023-04-07)
PROC: 0D9670Z Drainage of Stomach with Drainage Device, Via Natural or Artificial Opening (ICD-10-PCS; 2023-04-08)
PROC: 30233N1 Transfusion of Nonautologous Red Blood Cells into Peripheral Vein, Percutaneous Approach (ICD-10-PCS; 2023-04-09)
PROC: 0DJ08ZZ Inspection of Upper Intestinal Tract, Via Natural or Artificial Opening Endoscopic (ICD-10-PCS; 2023-04-16)
PROC: 0DBN8ZX Excision of Sigmoid Colon, Via Natural or Artificial Opening Endoscopic, Diagnostic (ICD-10-PCS; 2023-04-16)
PROC: B40FYZZ Plain Radiography of Right Lower Extremity Arteries using Other Contrast (ICD-10-PCS; principal; 2023-04-17 09:30)
PROC: 0D20XUZ Change Feeding Device in Upper Intestinal Tract, External Approach (ICD-10-PCS; 2023-04-25)
PROC: 0DH63UZ Insertion of Feeding Device into Stomach, Percutaneous Approach (ICD-10-PCS; 2023-04-28)
PROC: 05HM33Z Insertion of Infusion Device into Right Internal Jugular Vein, Percutaneous Approach (ICD-10-PCS; 2023-04-28)
DX: A41.89 Other specified sepsis (principal); G93.41 Metabolic encephalopathy; E11.52 Type 2 diabetes mellitus with diabetic peripheral angiopathy with gangrene; N17.9 Acute kidney failure, unspecified; E87.21 Acute metabolic acidosis; I50.40 Unspecified combined systolic (congestive) and diastolic (congestive) heart failure; K55.9 Vascular disorder of intestine, unspecified; T85.628A Displacement of other specified internal prosthetic devices, implants and grafts, initial encounter; M86.9 Osteomyelitis, unspecified; E11.69 Type 2 diabetes mellitus with other specified complication; I11.0 Hypertensive heart disease with heart failure; I25.10 Atherosclerotic heart disease of native coronary artery without angina pectoris; J45.909 Unspecified asthma, uncomplicated; Z85.3 Personal history of malignant neoplasm of breast; F41.8 Other specified anxiety disorders; D64.9 Anemia, unspecified; T87.54 Necrosis of amputation stump, left lower extremity; Y83.9 Surgical procedure, unspecified as the cause of abnormal reaction of the patient, or of later complication, without mention of misadventure at the time of the procedure; I73.9 Peripheral vascular disease, unspecified; E78.5 Hyperlipidemia, unspecified; E87.6 Hypokalemia; K21.9 Gastro-esophageal reflux disease without esophagitis; E87.5 Hyperkalemia; Z95.5 Presence of coronary angioplasty implant and graft; K64.8 Other hemorrhoids
CPT/HCPCS: 0241U-QW; 36415; 36430; 49440; 70450-TC; 70551-TC; 71045-TC-FY; 73630-TC-LT; 73630-TC-RT-FY; 74018-TC-FY; 74176-TC; 76000-TC-FY; 76775-TC; 80048; 80053; 80076; 81003; 82272; 82310; 82436; 82550; 82553; 82570; 82607; 82728; 82747; 82784; 82803; 82962; 83516; 83520; 83540; 83550; 83605; 83615; 83735; 83883; 84100; 84133; 84155; 84165; 84300; 84443; 84484; 85014; 85025; 85027; 85610; 85730; 86038; 86160; 86225; 86256; 86803; 86850; 86900; 86901; 86922; 87040; 87086; 87340; 88305-TC; 93005; 93010; 93926-TC; 94760; 99285-25; C1769; G0480; J1644; P9038; P9058

== ENCOUNTER 2023-05-10 15:18 | Inpatient (IN) | payer OTHER ==
[2023-05-10 15:40] VITALS: RESP 18
[2023-05-10] MEDS ORDERED: ACETAMINOPHEN 1000 MG/100 ML BAG IVPB ONE (16:18)
[2023-05-10] MEDS ORDERED: ACETAMINOPHEN INJECTION 100 ML IVPB ONE (17:09)
[2023-05-10 17:27] LABS: BASO % 0.3 % (0-2.0); EOS % 0.7 % (0-4.5); HEMATOCRIT 29.9 % (32.4-45.2); HEMOGLOBIN 10.1 GM/dL (10.7-15.3); LYMPH % 7.7 % (8-40); MCH 28.6 pg (25.7-33.7); MCHC 33.9 g/dl (32.0-36.0); MEAN CELL VOLUME 84.5 fl (80-96); MEAN PLT VOLUME 6.3 fl (7.5-11.1); MONO % 7.3 % (3.8-10.2); PLATELET COUNT 524 10^3/uL (134-434); RBC 3.54 M/mm3 (3.60-5.2); RDW 17.6 % (11.6-15.6); WHITE BLOOD COUNT 13.2 K/mm3 (4.0-10.0)
[2023-05-10 18:00] LABS: INR 1.33 (0.83-1.09); PROTHROMBIN TIME (PATIENT) 15.4 SEC (9.7-13.0)
[2023-05-10 18:00] LABS: POTASSIUM 5.2 mmol/L (3.5-5.1)
[2023-05-10 18:02] LABS: BLOOD UREA NITROGEN 15.7 mg/dL (7-18); CALCIUM 8.7 mg/dL (8.5-10.1)
[2023-05-10 18:03] LABS: ACTIVATED PTT 33.9 SECONDS (25.2-36.5)
[2023-05-10 18:05] LABS: CREATININE 0.6 mg/dL (0.55-1.3)
[2023-05-10 18:07] LABS: BILIRUBIN,TOTAL 0.7 mg/dL (0.2-1)
[2023-05-10] MEDS ORDERED: DEXTROSE 5%-NORMAL SALINE 1,000 ML IV SCH (21:30)
[2023-05-10] MEDS ORDERED: ACETAMINOPHEN 1000 MG/100 ML BAG IVPB PRN (21:40)
[2023-05-11] MEDS: INSULIN SLIDING SCALE (NOVOLOG) 1 VIAL SQ SCH ×5 (02:06→23:03)
[2023-05-11 09:12] LABS: BASO % 0.7 % (0-2.0); EOS % 1.1 % (0-4.5); HEMATOCRIT 29.4 % (32.4-45.2); HEMOGLOBIN 9.4 GM/dL (10.7-15.3); LYMPH % 9.3 % (8-40); MCH 27.6 pg (25.7-33.7); MCHC 31.8 g/dl (32.0-36.0); MEAN CELL VOLUME 86.7 fl (80-96); MEAN PLT VOLUME 6.6 fl (7.5-11.1); MONO % 8.6 % (3.8-10.2); NEUT % 80.3 % (42.8-82.8); PLATELET COUNT 544 10^3/uL (134-434); RDW 17.2 % (11.6-15.6); WHITE BLOOD COUNT 9.2 K/mm3 (4.0-10.0)
[2023-05-11 09:28] LABS: POTASSIUM 3.8 mmol/L (3.5-5.1)
[2023-05-11 09:30] LABS: CALCIUM 8.2 mg/dL (8.5-10.1); MAGNESIUM 1.8 mg/dL (1.8-2.4)
[2023-05-11 09:31] LABS: BLOOD UREA NITROGEN 11.9 mg/dL (7-18)
[2023-05-11 09:34] LABS: CREATININE 0.4 mg/dL (0.55-1.3); PHOSPHOROUS 4.9 mg/dL (2.5-4.9)
[2023-05-11] MEDS: FAMOTIDINE 20 MG/50 ML IVPB 20 MG/50 ML MG IVPB SCH (10:28)
[2023-05-11] MEDS: COLLAGENASE CLOSTRIDIUM HIST. 30 GRAMS TUBE TP SCH (13:16)
[2023-05-11 13:33] VITALS: BMI 22.8
[2023-05-11 15:25] LABS: EPI CELLS >36 /uL (0-25.1); HYALINE CASTS 1 /uL (0-3.1); URINE APPEARANCE CLEAR; URINE BACTERIA 2719 /uL (0-1359); URINE BILIRUBIN NEGATIVE (NEGATIVE); URINE COLOR YELLOW; URINE GLUCOSE (UA) NEGATIVE (NEGATIVE); URINE KETONE NEGATIVE (NEGATIVE); URINE LEUK ESTERASE 3+ (NEGATIVE); URINE NITRITE NEGATIVE (NEGATIVE); URINE PROTEIN NEGATIVE (NEGATIVE); URINE RBC 12 /uL (0-23.9); URINE WBC 80 /uL (0-25.8)
[2023-05-11] MEDS: POTASSIUM CHLORIDE 20 MEQ in AMINO ACIDS 4.25%/D5W 1,000 ML IV SCH (15:27)
[2023-05-12] MEDS: POTASSIUM CHLORIDE 20 MEQ in AMINO ACIDS 4.25%/D5W 1,000 ML IV SCH ×3 (04:22→17:02)
[2023-05-12] MEDS: INSULIN SLIDING SCALE (NOVOLOG) 1 VIAL SQ SCH ×3 (05:11→18:06)
[2023-05-12] MEDS: COLLAGENASE CLOSTRIDIUM HIST. 30 GRAMS TUBE TP SCH (10:06)
[2023-05-12] MEDS: BACITRACIN ZINC 15 GM TUBE TOPICAL OINTMENT TP SCH (10:08)
[2023-05-12 10:39] LABS: POTASSIUM 3.6 mmol/L (3.5-5.1)
[2023-05-12 10:42] LABS: CALCIUM 8.5 mg/dL (8.5-10.1)
[2023-05-12 10:43] LABS: BLOOD UREA NITROGEN 11.3 mg/dL (7-18)
[2023-05-12 10:46] LABS: CREATININE 0.5 mg/dL (0.55-1.3)
[2023-05-12 10:47] LABS: BILIRUBIN,TOTAL 0.5 mg/dL (0.2-1)
[2023-05-12 10:48] LABS: TOT PROT 6.5 g/dl (6.4-8.2)
[2023-05-12] MEDS: FAMOTIDINE 20 MG/50 ML IVPB 20 MG/50 ML MG IVPB SCH (13:12)
[2023-05-13] MEDS: INSULIN SLIDING SCALE (NOVOLOG) 1 VIAL SQ SCH ×4 (00:09→18:18)
[2023-05-13] MEDS: POTASSIUM CHLORIDE 20 MEQ in AMINO ACIDS 4.25%/D5W 1,000 ML IV SCH ×2 (05:41→18:20)
[2023-05-13] MEDS: BACITRACIN ZINC 15 GM TUBE TOPICAL OINTMENT TP SCH (09:16)
[2023-05-13] MEDS: COLLAGENASE CLOSTRIDIUM HIST. 30 GRAMS TUBE TP SCH (09:17)
[2023-05-13] MEDS: FAMOTIDINE 20 MG/50 ML IVPB 20 MG/50 ML MG IVPB SCH (12:03)
[2023-05-13] MEDS: CEFTRIAXONE 1 GM in DEXTROSE 5%-WATER - 50 ML IVPB SCH (12:04)
[2023-05-13] MEDS ORDERED: PNEUMOC 20-VAL CONJ-DIP CRM/PF 0.5 ML SYRINGE IM ONE (15:00)
[2023-05-14] MEDS: INSULIN SLIDING SCALE (NOVOLOG) 1 VIAL SQ SCH ×3 (01:34→11:41)
[2023-05-14] MEDS: POTASSIUM CHLORIDE 20 MEQ in AMINO ACIDS 4.25%/D5W 1,000 ML IV SCH (08:32)
[2023-05-14 10:28] LABS: HEMATOCRIT 30.1 % (32.4-45.2); HEMOGLOBIN 10.2 GM/dL (10.7-15.3); MCH 28.2 pg (25.7-33.7); MCHC 33.9 g/dl (32.0-36.0); MEAN CELL VOLUME 83.1 fl (80-96); MEAN PLT VOLUME 6.2 fl (7.5-11.1); PLATELET COUNT 549 10^3/uL (134-434); RBC 3.63 M/mm3 (3.60-5.2); RDW 16.9 % (11.6-15.6); WHITE BLOOD COUNT 10.7 K/mm3 (4.0-10.0)
[2023-05-14 10:48] LABS: POTASSIUM 3.4 mmol/L (3.5-5.1)
[2023-05-14 10:51] LABS: CALCIUM 8.7 mg/dL (8.5-10.1)
[2023-05-14 10:52] LABS: BLOOD UREA NITROGEN 12.5 mg/dL (7-18)
[2023-05-14 10:55] LABS: CREATININE 0.4 mg/dL (0.55-1.3)
[2023-05-14] MEDS ORDERED: POTASSIUM CHLORIDE ORAL LIQUID 20 MEQ/15 ML PO ONE (11:13)
[2023-05-14] MEDS: FAMOTIDINE 20 MG/50 ML IVPB 20 MG/50 ML MG IVPB SCH (11:17)
[2023-05-14] MEDS: CEFTRIAXONE 1 GM in DEXTROSE 5%-WATER - 50 ML IVPB SCH (11:17)
[2023-05-14] MEDS ORDERED: CEPHALEXIN MONOHYDRATE 250 MG CAPSULE (FP) PO SCH (12:00)
[2023-05-14] MEDS ORDERED: NITROFURANTOIN MACROCRYSTAL 50 MG CAPSULE (FP) PO SCH (12:00)
[2023-05-14] MEDS: COLLAGENASE CLOSTRIDIUM HIST. 30 GRAMS TUBE TP SCH (12:56)
[2023-05-14] MEDS: BACITRACIN ZINC 15 GM TUBE TOPICAL OINTMENT TP SCH (12:56)
[2023-05-14 15:42] VITALS: BP 130/82; PULSE 88; TEMP 98.5
[2023-05-14] MEDS ORDERED: CEPHALEXIN 250 MG/5 ML ORAL SUSPENSION PO SCH (18:00)
== END 2023-05-14 17:48 | DRG 394 ==
LOC: JER 15:18 → JERBED 18:26 → J5S 23:50 → OBSVTOIN 05-13 10:06
PROVIDERS: ADMIT Internal Medicine; ATTEND Family Medicine
PROC: 0D20XUZ Change Feeding Device in Upper Intestinal Tract, External Approach (ICD-10-PCS; principal; 2023-05-13)
DX: K94.23 Gastrostomy malfunction (principal); L97.518 Non-pressure chronic ulcer of other part of right foot with other specified severity; N39.0 Urinary tract infection, site not specified; I25.10 Atherosclerotic heart disease of native coronary artery without angina pectoris; I10 Essential (primary) hypertension; E11.51 Type 2 diabetes mellitus with diabetic peripheral angiopathy without gangrene; E11.621 Type 2 diabetes mellitus with foot ulcer; J45.909 Unspecified asthma, uncomplicated; R13.10 Dysphagia, unspecified; E11.319 Type 2 diabetes mellitus with unspecified diabetic retinopathy without macular edema; E11.42 Type 2 diabetes mellitus with diabetic polyneuropathy; E87.5 Hyperkalemia; D64.9 Anemia, unspecified; F41.8 Other specified anxiety disorders; L89.322 Pressure ulcer of left buttock, stage 2; I12.9 Hypertensive chronic kidney disease with stage 1 through stage 4 chronic kidney disease, or unspecified chronic kidney disease; E11.22 Type 2 diabetes mellitus with diabetic chronic kidney disease; E11.40 Type 2 diabetes mellitus with diabetic neuropathy, unspecified; N18.9 Chronic kidney disease, unspecified; I25.2 Old myocardial infarction; Z89.422 Acquired absence of other left toe(s); Z85.3 Personal history of malignant neoplasm of breast
CPT/HCPCS: 36415; 49450; 71045-TC-FY; 80048; 80053; 81003; 82962; 83735; 84100; 84132; 85025; 85027; 85610; 85730; 86850; 86900; 86901; 87635; 90677; 94010; 99285-25; G0378

== ENCOUNTER 2023-09-28 19:26 | Emergency (ER) | payer OTHER ==
[2023-09-28 19:47] VITALS: BP 136/76; PULSE 82; RESP 16; TEMP 97.5; BMI 26.5
== END 2023-09-28 23:35 ==
LOC: JER 19:26
DX: K94.23 Gastrostomy malfunction (principal)
CPT/HCPCS: 74018-TC-FY; 99283-25

== ENCOUNTER 2023-10-18 12:01 | Inpatient (IN) | payer OTHER ==
[2023-10-18] MEDS ORDERED: morphine CARPU-JECT 4 MG/1 ML DISP.SYRIN IVPUSH ONE (12:39)
[2023-10-18] MEDS ORDERED: ACETAMINOPHEN INJECTION 100 ML IVPB ONE (12:45)
[2023-10-18] MEDS ORDERED: PIPERACILLIN/TAZOB 3.375 GM 3.375 GM/50 ML BAG IVPB ONE ×2 (12:45→21:41)
[2023-10-18 13:56] LABS: VENOUS BASE EXCESS 1.6 mmol/L (-2-2); VENOUS O2 SATURATION 99.4 % (70-80); VENOUS PCO2 37.3 mmHg (38-52); VENOUS PH 7.454 (7.310-7.410)
[2023-10-18] MEDS: ACETAMINOPHEN 1000 MG/100 ML BAG IVPB ONE (13:56)
[2023-10-18] MEDS: PIPERACILLIN/TAZOB 3.375 GM 3.375 GM in DEXTROSE 5%-WATER - 50 ML IVPB ONE (14:11)
[2023-10-18 14:15] LABS: CHLORIDE 102 mmol/L (98-107); POTASSIUM 3.3 mmol/L (3.5-5.1); SODIUM 135 mmol/L (136-145)
[2023-10-18 14:17] LABS: ANION GAP 6 mmol/L (4-13); BLOOD UREA NITROGEN 5.2 mg/dL (7-18); CO2 27 mmol/L (21-32); GLUCOSE,RANDOM 104 mg/dL (74-106)
[2023-10-18 14:20] LABS: CREATININE 0.5 mg/dL (0.55-1.3); SGOT/AST 15 U/L (15-37); SGPT/ALT < 6 U/L (13-61)
[2023-10-18 14:22] LABS: BILIRUBIN,TOTAL 0.5 mg/dL (0.2-1); TOT PROT 5.4 g/dl (6.4-8.2)
[2023-10-18 14:23] LABS: ALK PHOS 98 U/L (45-117)
[2023-10-18] MEDS ORDERED: VANCOMYCIN 1 GRAM (PRE-DOCKED) 1,000 MG/250 ML BAG IVPB ONE (14:58)
[2023-10-18] MEDS: VANCOMYCIN 1 GRAM (PRE-DOCKED) 1,000 MG/250 ML BAG IVPB ONE (15:03)
[2023-10-18] MEDS ORDERED: morphine SULFATE 4 MG/ML VIAL ONE (15:05)
[2023-10-18] MEDS: morphine CARPU-JECT 4 MG/1 ML DISP.SYRIN IVPUSH ONE (15:13)
[2023-10-18] MEDS: LACTATED RINGERS SOLUTION 1000 ML INFUS.BAG IV ONE (15:13)
[2023-10-18 15:16] LABS: BASO % 0.2 % (0-2.0); EOS % 1.1 % (0-4.5); HEMATOCRIT 22.7 % (32.4-45.2); LYMPH % 9.3 % (8-40); MCH 25.3 pg (25.7-33.7); MCHC 30.4 g/dl (32.0-36.0); MEAN CELL VOLUME 83.1 fl (80-96); MEAN PLT VOLUME 5.3 fl (7.5-11.1); MONO % 10.3 % (3.8-10.2); NEUT % 79.1 % (42.8-82.8); PLATELET COUNT 475 10^3/uL (134-434); RBC 2.73 M/mm3 (3.60-5.2); RDW 22.6 % (11.6-15.6); WHITE BLOOD COUNT 9.7 K/mm3 (4.0-10.0)
[2023-10-18] MEDS: SODIUM CHLORIDE 1,973 ML IV ONE (15:20)
[2023-10-18] MEDS: VANCOMYCIN 1 GM PREMIX - 1 GM/200 ML BAG IVPB ONE (15:20)
[2023-10-18 15:21] LABS: HEMOGLOBIN 6.9 GM/dL (10.7-15.3)
[2023-10-18 15:28] LABS: INR 1.23 (0.83-1.09); PROTHROMBIN TIME (PATIENT) 14.2 SEC (9.7-13.0)
[2023-10-18] MEDS ORDERED: methylPREDNISolone NA SUCC 125 MG/2 ML VIAL ONE ×2 (15:29)
[2023-10-18 15:31] LABS: ACTIVATED PTT 33.4 SECONDS (25.2-36.5)
[2023-10-18 15:34] LABS: ANISOCYTOSIS 2+; MACROCYTOSIS 1+
[2023-10-18] MEDS: methylPREDNISolone NA SUCC 125 MG/2 ML VIAL IVPB ONE (15:38)
[2023-10-18] MEDS: INSULIN ASPART SLIDING SCALE (NOVOLOG) 1 VIAL SQ SCH (16:23)
[2023-10-18] MEDS: D5-1/2NS+20 MEQ KCL - 20 MEQ/1,000 ML INFUS.BAG IV SCH (16:58)
[2023-10-18] MEDS: PIPERACILLIN/TAZOB 3.375 GM 3.375 GM in DEXTROSE 5%-WATER - 50 ML IVPB SCH ×3 (17:15→21:51)
[2023-10-18] MEDS ORDERED: PIPERACILLIN/TAZOB 3.375 GM 3.375 GM in DEXTROSE 5%-WATER - 50 ML IVPB SCH (18:00)
[2023-10-18 19:54] LABS: EPI CELLS 7 /uL (0-25.1); HYALINE CASTS 1 /uL (0-3.1); PH,URINE 5.5 (5.0-8.0); URINE APPEARANCE CLOUDY; URINE BILIRUBIN NEGATIVE (NEGATIVE); URINE COLOR YELLOW; URINE GLUCOSE (UA) NEGATIVE (NEGATIVE); URINE KETONE NEGATIVE (NEGATIVE); URINE LEUK ESTERASE 2+ (NEGATIVE); URINE NITRITE POSITIVE (NEGATIVE); URINE PROTEIN 1+ (NEGATIVE); URINE RBC 560 /uL (0-23.9); URINE UROBILINOGEN 0.2 mg/dL (0.2-1.0); URINE WBC 1027 /uL (0-25.8)
[2023-10-18] MEDS: METOPROLOL TARTRATE 25 MG TABLET (FP) GT SCH (21:31)
[2023-10-18] MEDS: MAGNESIUM OXIDE 400 MG TABLET (FP) GT SCH (21:31)
[2023-10-18] MEDS ORDERED: ATORVASTATIN CA 20 MG TABLET (FP) ONE (21:40)
[2023-10-18] MEDS ORDERED: HEPARIN NA (PORCINE) 5,000 UNITS/ML 1ML VIAL ONE (21:40)
[2023-10-18] MEDS ORDERED: TICAGRELOR 90 MG TABLET PO ONE (21:40)
[2023-10-18] MEDS: ATORVASTATIN CA 80 MG TABLET (FP) PO SCH (21:51)
[2023-10-18] MEDS: TICAGRELOR 90 MG TABLET PO SCH (21:51)
[2023-10-18] MEDS: HEPARIN NA (PORCINE) 5,000 UNITS/ML 1ML VIAL SQ SCH (21:51)
[2023-10-18 22:43] LABS: URINE BACTERIA 909.8 /uL (0-1359); URINE CRYSTALS NONE SEEN /hpf
[2023-10-19] MEDS: ASPIRIN 81 MG CHEWABLE TABLETS PO SCH (09:22)
[2023-10-19] MEDS: PARoxetine HCL 20 MG TABLET PO SCH (09:22)
[2023-10-19 09:33] LABS: BASO % 0.1 % (0-2.0); HEMATOCRIT 31.5 % (32.4-45.2); HEMOGLOBIN 10.1 GM/dL (10.7-15.3); LYMPH % 10.4 % (8-40); MCH 27.5 pg (25.7-33.7); MEAN CELL VOLUME 85.7 fl (80-96); MONO % 2.3 % (3.8-10.2); NEUT % 87.2 % (42.8-82.8); PLATELET COUNT 430 10^3/uL (134-434); RBC 3.68 M/mm3 (3.60-5.2); RDW 22.2 % (11.6-15.6); WHITE BLOOD COUNT 4.4 K/mm3 (4.0-10.0)
[2023-10-19 09:37] LABS: MEAN PLT VOLUME 5.5 fl (7.5-11.1)
[2023-10-19 09:47] LABS: POTASSIUM 4.1 mmol/L (3.5-5.1)
[2023-10-19 09:48] LABS: CALCIUM 7.9 mg/dL (8.5-10.1)
[2023-10-19 09:49] LABS: ALBUMIN 2.1 g/dl (3.4-5.0); BLOOD UREA NITROGEN 4.2 mg/dL (7-18); MAGNESIUM 1.5 mg/dL (1.8-2.4)
[2023-10-19 09:52] LABS: CREATININE 0.5 mg/dL (0.55-1.3)
[2023-10-19 09:53] LABS: BILIRUBIN,TOTAL 0.9 mg/dL (0.2-1); TOT PROT 5.6 g/dl (6.4-8.2)
[2023-10-19 10:19] VITALS: BMI 23.6
[2023-10-19] MEDS: morphine SULFATE 4 MG/ML VIAL IM PRN (14:37)
[2023-10-19] MEDS: MAGNESIUM SULF 50% (8.12 MEQ/2 ML-1 GM VIAL) IVPB ONE ×2 (14:40→15:11)
[2023-10-19] MEDS: FAMOTIDINE 20 MG/2.5 ML ORAL LIQUID GT SCH (14:42)
[2023-10-20] MEDS ORDERED: PIPERACILLIN/TAZOBACTAM 3.375 GM VIAL IVPB ONE (05:52)
[2023-10-20 10:52] LABS: BASO % 0.2 % (0-2.0); EOS % 3.3 % (0-4.5); HEMATOCRIT 29.5 % (32.4-45.2); HEMOGLOBIN 9.4 GM/dL (10.7-15.3); LYMPH % 13.4 % (8-40); MCHC 31.9 g/dl (32.0-36.0); MEAN CELL VOLUME 87.6 fl (80-96); MEAN PLT VOLUME 5.3 fl (7.5-11.1); NEUT % 74.1 % (42.8-82.8); PLATELET COUNT 418 10^3/uL (134-434); RBC 3.37 M/mm3 (3.60-5.2); RDW 23.8 % (11.6-15.6)
[2023-10-20 11:11] LABS: POTASSIUM 3.7 mmol/L (3.5-5.1)
[2023-10-20 11:18] LABS: CALCIUM 7.8 mg/dL (8.5-10.1)
[2023-10-20 11:19] LABS: ALBUMIN 1.9 g/dl (3.4-5.0); BLOOD UREA NITROGEN 4.4 mg/dL (7-18); MAGNESIUM 2.1 mg/dL (1.8-2.4)
[2023-10-20 11:22] LABS: CREATININE 0.5 mg/dL (0.55-1.3)
[2023-10-20 11:23] LABS: BILIRUBIN,TOTAL 0.8 mg/dL (0.2-1); TOT PROT 5.2 g/dl (6.4-8.2)
[2023-10-20] MEDS: CEFTRIAXONE 1 GM in DEXTROSE 5%-WATER - 50 ML IVPB SCH (14:59)
[2023-10-20] MEDS: VANCOMYCIN/WATER FOR INJ (PEG) 1,000 MG/200 ML BAG IVPB SCH (15:01)
[2023-10-20] MEDS: COLLAGENASE CLOSTRIDIUM HIST. 30 GRAMS TUBE TP SCH (15:52)
[2023-10-20] MEDS: ATORVASTATIN CA 20 MG TABLET (FP) PO SCH (22:18)
[2023-10-21] MEDS: ACETAMINOPHEN 1000 MG/100 ML BAG IVPB PRN (14:51)
[2023-10-21] MEDS: MEROPENEM 1 GM in DEXTROSE 5%-WATER 100 ML IVPB SCH (18:22)
[2023-10-22 09:55] LABS: BASO % 0.6 % (0-2.0); HEMATOCRIT 31.9 % (32.4-45.2); HEMOGLOBIN 10.2 GM/dL (10.7-15.3); LYMPH % 11.4 % (8-40); MCH 28.1 pg (25.7-33.7); MCHC 32.1 g/dl (32.0-36.0); MEAN CELL VOLUME 87.5 fl (80-96); MONO % 6.8 % (3.8-10.2); NEUT % 79.2 % (42.8-82.8); PLATELET COUNT 425 10^3/uL (134-434); RBC 3.65 M/mm3 (3.60-5.2); WHITE BLOOD COUNT 6.1 K/mm3 (4.0-10.0)
[2023-10-22 09:56] LABS: MEAN PLT VOLUME 5.5 fl (7.5-11.1)
[2023-10-22 10:38] LABS: POTASSIUM 3.2 mmol/L (3.5-5.1)
[2023-10-22 10:39] LABS: ANISOCYTOSIS 2+; MACROCYTOSIS 1+
[2023-10-22 10:45] LABS: ALBUMIN 1.9 g/dl (3.4-5.0)
[2023-10-22 10:48] LABS: CREATININE 0.3 mg/dL (0.55-1.3)
[2023-10-22 10:50] LABS: TOT PROT 5.6 g/dl (6.4-8.2)
[2023-10-22 10:51] LABS: BILIRUBIN,TOTAL 0.6 mg/dL (0.2-1)
[2023-10-22 10:52] LABS: CALCIUM 8.1 mg/dL (8.5-10.1)
[2023-10-22] MEDS: KCL 10 MEQ IVPB 10 MEQ/100 ML INFUS.BAG IVPB SCH (11:16)
[2023-10-22] MEDS: POTASSIUM CHLORIDE ORAL LIQUID 20 MEQ/15 ML PO ONE (13:09)
[2023-10-22] MEDS: PANTOPRAZOLE SODIUM 40 MG VIAL IVPUSH SCH (22:13)
[2023-10-23 10:09] LABS: HEMATOCRIT 34.2 % (32.4-45.2); HEMOGLOBIN 10.8 GM/dL (10.7-15.3); MCHC 31.7 g/dl (32.0-36.0); MEAN CELL VOLUME 88.4 fl (80-96); MEAN PLT VOLUME 5.9 fl (7.5-11.1); RBC 3.87 M/mm3 (3.60-5.2); RDW 23.8 % (11.6-15.6)
[2023-10-23 10:11] LABS: WHITE BLOOD COUNT 7.6 K/mm3 (4.0-10.0)
[2023-10-23 10:13] LABS: PLATELET COUNT 299 10^3/uL (134-434)
[2023-10-23 10:26] LABS: POTASSIUM 3.8 mmol/L (3.5-5.1)
[2023-10-23 10:28] LABS: ALBUMIN 1.9 g/dl (3.4-5.0); BLOOD UREA NITROGEN 4.1 mg/dL (7-18); CALCIUM 7.6 mg/dL (8.5-10.1)
[2023-10-23 10:31] LABS: CREATININE 0.4 mg/dL (0.55-1.3)
[2023-10-23 10:33] LABS: BILIRUBIN,TOTAL 0.5 mg/dL (0.2-1); TOT PROT 5.4 g/dl (6.4-8.2)
[2023-10-23 10:46] LABS: ANISOCYTOSIS 2+
[2023-10-23 10:52] LABS: PLATELET ESTIMATE ADEQUATE
[2023-10-23] MEDS: CLINDAMYCIN HCL 150 MG CAPSULE (FP) PO SCH (13:57)
[2023-10-23] MEDS ORDERED: PEG 3350/NA SULF BICARB CL/KCL 4000 ML SOLN.RECON PO ONE (17:00)
[2023-10-23] MEDS: BISACODYL 5 MG TABLET.DR (FP) PO ONE (17:12)
[2023-10-23] MEDS: PEG 3350/NA SULF BICARB CL/KCL 4000 ML SOLN.RECON GT ONE (17:25)
[2023-10-24 10:08] LABS: BASO % 0.7 % (0-2.0); EOS % 3.8 % (0-4.5); HEMATOCRIT 30.9 % (32.4-45.2); HEMOGLOBIN 9.8 GM/dL (10.7-15.3); LYMPH % 17.6 % (8-40); MCH 27.6 pg (25.7-33.7); MCHC 31.6 g/dl (32.0-36.0); MEAN CELL VOLUME 87.6 fl (80-96); NEUT % 67.9 % (42.8-82.8); PLATELET COUNT 337 10^3/uL (134-434); RBC 3.53 M/mm3 (3.60-5.2); RDW 23.7 % (11.6-15.6); WHITE BLOOD COUNT 4.9 K/mm3 (4.0-10.0)
[2023-10-24 10:09] LABS: MEAN PLT VOLUME 5.7 fl (7.5-11.1)
[2023-10-24 10:26] LABS: CHLORIDE 100 mmol/L (98-107); POTASSIUM 3.2 mmol/L (3.5-5.1); SODIUM 138 mmol/L (136-145)
[2023-10-24 10:28] LABS: ANION GAP 7 mmol/L (4-13); CALCIUM 8.1 mg/dL (8.5-10.1); CO2 31 mmol/L (21-32)
[2023-10-24 10:29] LABS: ALBUMIN 1.8 g/dl (3.4-5.0)
[2023-10-24 10:32] LABS: CREATININE 0.3 mg/dL (0.55-1.3); SGOT/AST 17 U/L (15-37); SGPT/ALT 8 U/L (13-61)
[2023-10-24 10:33] LABS: BILIRUBIN,TOTAL 0.6 mg/dL (0.2-1); TOT PROT 5.3 g/dl (6.4-8.2)
[2023-10-24 10:34] LABS: ALK PHOS 105 U/L (45-117)
[2023-10-24 10:39] LABS: BLOOD UREA NITROGEN 2.7 mg/dL (7-18); GLUCOSE,RANDOM 95 mg/dL (74-106)
[2023-10-24] MEDS: POTASSIUM CHLORIDE ORAL LIQUID 20 MEQ/15 ML PO ONE (17:27)
[2023-10-25] MEDS: PANTOPRAZOLE SODIUM 40 MG VIAL IVPUSH SCH (09:31)
[2023-10-25] MEDS: CALAMINE 8% TOPICAL LOTION 177 ML BOTTLE TP PRN (18:00)
[2023-10-26 07:53] LABS: BASO % 0.8 % (0-2.0); EOS % 2.3 % (0-4.5); HEMATOCRIT 32.4 % (32.4-45.2); HEMOGLOBIN 10.4 GM/dL (10.7-15.3); LYMPH % 13.7 % (8-40); MCH 28.1 pg (25.7-33.7); MEAN CELL VOLUME 87.8 fl (80-96); MEAN PLT VOLUME 6.1 fl (7.5-11.1); MONO % 8.8 % (3.8-10.2); NEUT % 74.4 % (42.8-82.8); PLATELET COUNT 308 10^3/uL (134-434); RBC 3.69 M/mm3 (3.60-5.2); RDW 23.2 % (11.6-15.6); WHITE BLOOD COUNT 6.9 K/mm3 (4.0-10.0)
[2023-10-26 08:06] LABS: POTASSIUM 3.5 mmol/L (3.5-5.1)
[2023-10-26 08:09] LABS: CALCIUM 8.2 mg/dL (8.5-10.1)
[2023-10-26 08:10] LABS: ALBUMIN 1.9 g/dl (3.4-5.0)
[2023-10-26 08:13] LABS: CREATININE 0.4 mg/dL (0.55-1.3)
[2023-10-26 08:14] LABS: BILIRUBIN,TOTAL 0.6 mg/dL (0.2-1); TOT PROT 5.5 g/dl (6.4-8.2)
[2023-10-26 10:13] LABS: ANISOCYTOSIS 3+; MACROCYTOSIS 0
[2023-10-29 10:04] LABS: POTASSIUM 3.5 mmol/L (3.5-5.1)
[2023-10-29 10:19] LABS: BLOOD UREA NITROGEN 3.2 mg/dL (7-18)
[2023-10-29 10:20] LABS: ALBUMIN 1.9 g/dl (3.4-5.0)
[2023-10-29 10:24] LABS: BILIRUBIN,TOTAL 0.7 mg/dL (0.2-1)
[2023-10-29 10:27] LABS: CREATININE 0.4 mg/dL (0.55-1.3)
[2023-10-29 10:29] LABS: TOT PROT 5.5 g/dl (6.4-8.2)
[2023-10-29 15:21] VITALS: BP 147/76; PULSE 57; RESP 18; TEMP 98.8
== END 2023-10-29 20:28 | DRG 394 ==
LOC: JER 12:01 → JERBED 14:39 → J5S 10-19 06:13 → J8W 10-20 17:32
PROVIDERS: ADMIT Family Medicine; ATTEND Family Medicine
PROC: 30233N1 Transfusion of Nonautologous Red Blood Cells into Peripheral Vein, Percutaneous Approach (ICD-10-PCS; 2023-10-18)
PROC: 0DJD8ZZ Inspection of Lower Intestinal Tract, Via Natural or Artificial Opening Endoscopic (ICD-10-PCS; 2023-10-24)
PROC: 0DJ08ZZ Inspection of Upper Intestinal Tract, Via Natural or Artificial Opening Endoscopic (ICD-10-PCS; principal; 2023-10-24 13:30)
DX: K94.22 Gastrostomy infection (principal); K92.1 Melena; L03.311 Cellulitis of abdominal wall; D64.9 Anemia, unspecified; I73.9 Peripheral vascular disease, unspecified; I12.9 Hypertensive chronic kidney disease with stage 1 through stage 4 chronic kidney disease, or unspecified chronic kidney disease; I25.10 Atherosclerotic heart disease of native coronary artery without angina pectoris; J45.909 Unspecified asthma, uncomplicated; N18.9 Chronic kidney disease, unspecified; E11.42 Type 2 diabetes mellitus with diabetic polyneuropathy; T81.89XA Other complications of procedures, not elsewhere classified, initial encounter; Z85.3 Personal history of malignant neoplasm of breast; E11.621 Type 2 diabetes mellitus with foot ulcer; Y83.9 Surgical procedure, unspecified as the cause of abnormal reaction of the patient, or of later complication, without mention of misadventure at the time of the procedure; K57.30 Diverticulosis of large intestine without perforation or abscess without bleeding; K29.70 Gastritis, unspecified, without bleeding; K21.9 Gastro-esophageal reflux disease without esophagitis
CPT/HCPCS: 0241U-QW; 36415; 36430; 71045-TC-FY; 73590-TC-LT-FY; 73590-TC-RT-FY; 73610-TC-LT-FY; 73610-TC-RT-FY; 73630-TC-LT; 73630-TC-RT-FY; 74176-TC; 75635-TC; 80048; 80053; 81003; 82550; 82607; 82728; 82746; 82803; 82962; 83605; 83735; 84443; 84484; 85025; 85610; 85730; 86850; 86900; 86901; 86922; 87040; 87070; 87077; 87086; 87186; 87205; 87635; 93005; 93010; 99285-25; J0131; J1644; P9038; P9058; Q9967

== ENCOUNTER 2023-10-30 17:15 | Emergency (ER) | payer OTHER ==
[2023-10-30] MEDS ORDERED: TENECTEplase 50 MG VIAL IVPUSH ONE (17:48)
[2023-10-30 17:53] VITALS: BMI 32.2
[2023-10-30] MEDS ORDERED: EPINEPHrine 1:10,000 (P-F SYR) 1 MG/10 ML DISP.SYRIN ONE ×3 (18:30→18:35)
[2023-10-30] MEDS ORDERED: CALCIUM CHLORIDE 1 GM/10 ML *DISP.SYRIN ONE (18:31)
[2023-10-30] MEDS ORDERED: DEXTROSE 50%-WATER 25 GM/50 ML DISP.SYRIN ONE (18:35)
[2023-10-30 18:37] LABS: ARTERIAL BLD GAS O2 SATURATION 99.5 % (95-98); ARTERIAL BLOOD GAS BASE EXCESS -11.7 mmol/L (-2-2); ARTERIAL BLOOD GAS PO2 282.1 mmHg (80-100); ARTERIAL BLOOD GAS pH 7.217 (7.350-7.450)
[2023-10-30 18:39] LABS: HEMATOCRIT 29.7 % (32.4-45.2); MCH 27.5 pg (25.7-33.7); MCHC 30.4 g/dl (32.0-36.0); MEAN CELL VOLUME 90.6 fl (80-96); MEAN PLT VOLUME 6.9 fl (7.5-11.1); PLATELET COUNT 196 10^3/uL (134-434); RBC 3.28 M/mm3 (3.60-5.2); RDW 21.5 % (11.6-15.6)
[2023-10-30 18:49] LABS: WHITE BLOOD COUNT 33.6 K/mm3 (4.0-10.0)
[2023-10-30 19:01] LABS: INR 1.54 (0.83-1.09); PROTHROMBIN TIME (PATIENT) 17.8 SEC (9.7-13.0)
[2023-10-30 19:04] LABS: ACTIVATED PTT 74.1 SECONDS (25.2-36.5)
[2023-10-30 19:07] LABS: POTASSIUM 3.2 mmol/L (3.5-5.1)
[2023-10-30] MEDS ORDERED: NOREPINEPHRINE BITARTRATE 4 MG/4 ML ML IV ONE (19:08)
[2023-10-30 19:11] LABS: MAGNESIUM 3.5 mg/dL (1.8-2.4)
[2023-10-30 19:12] LABS: ANISOCYTOSIS 2+
[2023-10-30 19:13] LABS: CREATININE 0.9 mg/dL (0.55-1.3)
[2023-10-30 19:15] LABS: BILIRUBIN,TOTAL 0.6 mg/dL (0.2-1); TOT PROT 4.2 g/dl (6.4-8.2)
[2023-10-30 19:16] LABS: LACTIC ACID > 15.0 mmol/L (0.4-2.0)
[2023-10-30 19:19] LABS: N-TERMINAL BNP 12227.3 pg/ml (5-450)
[2023-10-30 19:25] LABS: ALBUMIN 1.4 g/dl (3.4-5.0); CALCIUM 11.6 mg/dL (8.5-10.1)
[2023-10-30] MEDS: NOREPINEPHRINE 0.9 % NACL 8 MG/250 ML BAG IVPB SCH (19:44)
[2023-10-30] MEDS: LINEZOLID 600 MG PREMIX BAG 600 MG in PREMIX 300 IVPB ONE (20:44)
[2023-10-30] MEDS: MEROPENEM 1 GM in DEXTROSE 5%-WATER 100 ML IVPB ONE (20:45)
[2023-10-30 22:04] VITALS: RESP 13
[2023-10-30 22:12] VITALS: BP 63/26; PULSE 20
== END 2023-10-30 21:48 | disposition expired ==
LOC: JER 17:15
DX: I46.9 Cardiac arrest, cause unspecified (principal); I21.3 ST elevation (STEMI) myocardial infarction of unspecified site; Z20.822 Contact with and (suspected) exposure to COVID-19
CPT/HCPCS: 0241U-QW; 36415; 36600; 71045-TC-FY; 80053; 82803; 83605; 83690; 83735; 83880; 84484; 85025; 85610; 85730; 86850; 86900; 86901; 93005; 93010; 99291